=== PATIENT | female | born 1965 | race Caucasian/White ===

== ENCOUNTER → 2016-09-22 | Outpatient (CLI) | payer BC ==
[~2016-09-22] MED LIST: ASPI-435 PO; CEPH500C2 PO; CYAN10004 SL; GLC/500 PO; LEVO25TA5 PO; LEVO50TA6 PO; LISI-461 PO; LISI2.5T5 PO; METF750T PO; PARO10TA3 PO; SULF800T23 PO
[2016-09-22 10:00] LABS: BASO % 0.5 %; BASO ABS # 0.06 K/uL (0-0.2); COMPLETE YES; EOS % 2.3 %; HEMATOCRIT 42.6 % (37-47); IG% 0.5 %; LYMPH % 24.1 %; LYMPH ABS # 2.83 K/uL (1.2-3.4); MEAN CELL VOLUME 92.2 fL (80-100); MEAN CORPUSCULAR HEMOGLOBIN 31.6 pg (25-34); MEAN CORPUSCULAR HGB CONC 34.3 g/dl (32-36); MEAN PLATELET VOLUME 8.9 fL (7.4-10.4); MONO % 6.1 %; NEUT % 66.5 %; PLATELET COUNT 436 K/uL (130-400); RED BLOOD COUNT 4.62 M/uL (4.2-5.4); WHITE BLOOD COUNT 11.75 K/uL (4.8-10.8)
[2016-09-22 10:29] LABS: ALB/GLOB RATIO 0.9 (0.9-2); ALT/SGPT 28 U/L (12-78); AST/SGOT 14 U/L (15-37); BLOOD UREA NITROGEN 6 mg/dl (7-18); CALCIUM 8.8 mg/dl (8.5-10.1); CARBON DIOXIDE 28 mmol/L (21-32); CHLORIDE 101 mmol/L (98-107); CREATININE 0.65 mg/dl (0.60-1.20); GLUCOSE 177 mg/dl (70-99); POTASSIUM 4.2 mmol/L (3.5-5.1); SODIUM 136 mmol/L (136-145)
[2016-09-22 10:40] LABS: ALKALINE PHOSPHATASE 101 U/L (45-117); CHOLESTEROL 172 mg/dl (0-200); CHOLESTEROL/HDL RATIO 3.4; HDL CHOLESTEROL 50 mg/dl; LDL CHOLESTEROL CALCULATED 101 mg/dl; TRIGLYCERIDES 106 mg/dl (0-150); VERY LOW DENSITY LIPOPROT CALC 21 mg/dl
[2016-09-22 10:56] LABS: ESTIMATED AVERAGE GLUCOSE 169 mg/dl; HA1C FLAG Normal (Normal)
== END | disposition home or self-care (01) ==
LOC: C.LAB1850 09:16
PROVIDERS: ATTEND Physician Assistant
DX: Z00.00 Encounter for general adult medical examination without abnormal findings (principal); E11.9 Type 2 diabetes mellitus without complications; E03.9 Hypothyroidism, unspecified

== ENCOUNTER → 2016-10-06 | Outpatient (CLI) | payer BC | END | disposition home or self-care (01) | LOC: C.PAPS 11:10 | PROVIDERS: ATTEND Obstetrics & Gynecology | DX: Z01.419 Encounter for gynecological examination (general) (routine) without abnormal findings (principal) ==

== ENCOUNTER 2016-10-23 09:40 | Emergency (ER) | payer BC ==
[~2016-10-23] VITALS: Ht 152.4 cm; Wt 129.0 kg
[2016-10-23 09:42] VITALS: TEMP 36.8; Ht 152.4 cm; Wt 129.0 kg
[2016-10-23] MEDS ORDERED: XYLOCAINE 1%/SOD BICARB 20 ML VIAL INFIL ONE (10:01)
--- NOTE | 2016-10-23 10:06 | EMERGENCY ROOM VISIT NOTE ---
History First contact with patient: 09:45 Chief Complaint: WOUND INFECTION Stated Complaint: BLEEDING/OOZING SORE HX: DIABETES Nursing Triage Summary: Pt. states has sebaceous cyst on left pubic/groin area x3 days that began draining last night. Concerned because of history of diabetes. History of Present Illness The patient is a 51 year old female with diabetes who presents to the Emergency Room with complaints of infected sebaceous cyst. It has been progressively increasing in size for the last 3 days and opened up and draining last night. It has been oozing blood and pus. No previous MRSA infections but her has had MRSA. Previous sebaceous cyst on back previously infected. She has not fevers or chills. She is diabetic Review of Systems See HPI for pertinent positives & negatives. A total of 6 systems reviewed and were otherwise negative. Past Medical/Surgical History Medical Problems: (1) Diabetes mellitus (2) Hypothyroid Social History Smoking Status: Never Smoker Current/Historical Medications Scheduled Cephalexin Monohydrate (Keflex), 500 MG PO BID Levothyroxine Sodium (Levothyroxine Sodium), 25 MCG PO DAILY Lisinopril (Lisinopril), 10 MG PO DAILY Metformin Hcl (Glucophage Er), 750 MG PO BID Paroxetine HCl (Paroxetine), 10 MG PO DAILY Sulfa/Trimethoprim (Bactrim Ds 800MG/160MG), 1 TAB PO BID Allergies Coded Allergies: Miconazole (Verified Adverse Reaction, Unknown, burning, 10/23/16) Physical Exam Vital Signs Date Time Temp Pulse Resp B/P (MAP) Pulse Ox O2 Delivery O2 Flow Rate FiO2 10/23/16 11:06 85 16 108/70 95 10/23/16 10:55 85 16 108/70 95 Room Air 10/23/16 09:42 36.8 88 18 158/86 94 Room Air Physical Exam VITAL SIGNS: were reviewed as above GENERAL: no acute distress, morbidly obese SKIN: 2 cm diameter pus filled open cyst mixed with clotted blood on left lower part of abdomen above panniculus. Surrounding dark red skin. ABDOMEN: soft non tender around lesion above NEUROLOGICALLY: Awake alert and oriented. Medical Decision & Procedures Laboratory Results Test 10/23/16 10:46 Bedside Glucose 196 mg/dl (70-90) Medications Administered Medications (Trade) Dose Ordered Sig/Ana Route Start Time Stop Time Status Last Admin Dose Admin Lidocaine HCl (Buffered Lidocaine 1% Inj) 20 ml STK-MED ONCE INFIL 10/23/16 10:01 10/23/16 10:02 DC 10/23/16 10:17 20 ML Procedure Incision and drainage: Verbal consent was gained. Risks of local damage, bleeding, infection were discussed. Skin was prepped using Betadine. 8ml of 1% buffered lidocaine use to anesthetize surrounding skin. Using aseptic non touch technique a 2.5cm incision was made using a scalpel. Pus and blood extruded. Blunt dissection scissors used to evacuate infection. Area was thoroughly irrigated with saline. Packed with iodoform and dressed with gauze and tape. Patient tolerated procedure well and follow information in 48 hours explained verbally and in written instructions. ED Course 9:45am Complete history and physical performed 10:15am Discussed with Dr Patel and Incision and Drainage performed 10:50am Patient was discharged Medical Decision Triage Nursing notes reviewed. Additional history obtained from patient The patient's history was concerning for infected skin abscess. Differential diagnosis: Etiologies such as cellulitis, abscess, MRSA infection, DVT, necrotizing fasciitis, dermatitis, drug eruption, as well as others were entertained.. Physical examination: The physical examination was consistent with infected skin abscess Wound culture taken Incision and Drainage was performed (see above) On reassessment the patient felt better after incision and drainage This appears to be isolated infected skin abscess likely from sebaceous cyst with mild surrounding cellulitis. By the evaluation outlined above emergent etiologies such as necrotizing fasciitis, DVT, as well as others were deemed relatively unlikely. The patient informed about the findings as listed above. All questions were answered and she was pleased with the treatment. Return instructions were outlined and the patient was discharged in stable condition. Outpatient prescription management: Keflex 500mg BID 10 days Bactrim 800/160mg 1 tab BID 10 days Referral: The patient will be seen in the ER in 2 days for removal of packing and wound check. Impression Primary Impression: Infected sebaceous cyst Departure Information Dispostion Home / Self-Care Condition GOOD Prescriptions Cephalexin Monohydrate (KEFLEX) 500 Mg Cap 500 MG PO BID for 10 Days, #20 CAP Prov: Heraclio Woods MD 10/23/16 Sulfa/Trimethoprim (Bactrim Ds 800MG/160MG) Tab 1 TAB PO BID for 10 Days, #20 TAB Prov: Heraclio Woods MD 10/23/16 Referrals No Doctor, Assigned (PCP) Patient Instructions My [facility] Resident Tracking Resident Involvement: Resident Care Provided Care Provided: Adult ED
[2016-10-23] MEDS ORDERED: LEVO25TA5 PO (10:15)
[2016-10-23] MEDS ORDERED: METF750T PO (10:15)
[2016-10-23] MEDS ORDERED: PARO10TA3 PO (10:15)
[2016-10-23] MEDS ORDERED: LISI-461 PO (10:15)
[2016-10-23] MEDS ORDERED: SULF800T23 PO (10:43)
[2016-10-23] MEDS ORDERED: CEPH500C2 PO (10:43)
[2016-10-23 11:06] VITALS: BP 108/70; PULSE 85; O2SAT 95
--- NOTE | 2016-10-23 14:18 | EMERGENCY ROOM VISIT NOTE ---
ED Visit Note First contact with patient: 09:45 Resident Physician Supervision Note: I interviewed and examined the patient. Discussed with Dr. Woods and agree with findings and plan as documented in the note. Any exceptions or clarifications are listed here: [None] Documented By: Gordon Patel
== END 2016-10-23 11:05 | disposition home or self-care (01) ==
LOC: C.EDB 09:42
DX: L72.3 Sebaceous cyst (principal); E11.9 Type 2 diabetes mellitus without complications; E03.9 Hypothyroidism, unspecified; Z79.899 Other long term (current) drug therapy

== ENCOUNTER 2016-10-25 15:59 | Emergency (ER) | payer BC ==
[~2016-10-25 15:59] MED LIST changes: -ASPI-435 PO; -CYAN10004 SL; -GLC/500 PO; -LEVO50TA6 PO; -LISI2.5T5 PO
[2016-10-25 16:03] VITALS: BP 151/80; PULSE 84; TEMP 36.6; O2SAT 96
--- NOTE | 2016-10-25 16:22 | EMERGENCY ROOM VISIT NOTE ---
History Report prepared by Brooke: Yesi Bowers Under the Supervision of: Dr. Ryan Orr M.D. First contact with patient: 16:07 Chief Complaint: WOUND RECHECK Stated Complaint: RETURN FOR REPACKING WOUND Nursing Triage Summary: pt here for recheck of left groin abcess. area was drained monday am. now having increased drainage. pt already on abx History of Present Illness The patient is a 51 year old female who presents to the Emergency Room with complaints of a persistent sebaceous cyst to her left abdomen that she first noticed on Monday. She currently rates her discomfort as a 3/10 in severity. The patient reports that she started noticing the cyst on Monday and states that on Monday she was evaluated in the emergency department for her infection. She states that she had the abscess drained, packed and bandaged. The patient states that the bandage fell off and notes that the area has been oozing. She states that the packing is still in place. The patient states that she was placed on Sulfamethoxazole and Cephalexin. She states that she is a diabetic. The patient denies any fever or chills. Source of History: patient Onset: Monday Position: other (left groin) Symptom Intensity: 3/10 Quality: other (sebaceous cyst) Timing: other (persistent) Associated Symptoms: No fevers, No chills Review of Systems See HPI for pertinent positives & negatives. A total of 6 systems reviewed and were otherwise negative. Past Medical & Surgical Medical Problems: (1) Diabetes mellitus (2) Hypothyroid Family History Cancer Diabetes mellitus FH: heart disease Hypertension Social History Smoking Status: Never Smoker Smokeless Tobacco Use: No Alcohol Use: occasionally Marital Status: single Housing Status: lives with roommate Occupation Status: employed Current/Historical Medications Scheduled Cephalexin Monohydrate (Keflex), 500 MG PO BID Levothyroxine Sodium (Levothyroxine Sodium), 25 MCG PO DAILY Lisinopril (Lisinopril), 10 MG PO DAILY Metformin Hcl (Glucophage Er), 750 MG PO BID Paroxetine HCl (Paroxetine), 10 MG PO DAILY Sulfa/Trimethoprim (Bactrim Ds 800MG/160MG), 1 TAB PO BID Allergies Coded Allergies: Miconazole (Verified Adverse Reaction, Unknown, burning, 10/23/16) Physical Exam Vital Signs Date Time Temp Pulse Resp B/P (MAP) Pulse Ox O2 Delivery O2 Flow Rate FiO2 10/25/16 16:03 36.6 84 16 151/80 96 Physical Exam General: Standing by the stretcher in no distress. Neuro: Awake, alert, oriented x3. No focal motor deficits. Skin: Packing in place on the left lower abdominal wall, some subtle surrounding erythema, no warmth, no foul odor , no true cellulitis. No active drainage. Medical Decision & Procedures Procedure Packing Removal: Packing removed without complication. Wound appears to be healing well, dressing applied. ED Course 1608: The patient was evaluated in room C8. A complete history and physical exam was performed. Medical Decision Patient presents for packing removal. The packing was removed as noted above without complaints. She is on Bactrim and Keflex. I reviewed the patient's culture results from 2 days ago, the meds she is taking should take care of this infection. There is no active cellulitis, there is no concerning drainage. The patient is not febrile, she has not had chills, she feels well. She is being discharged to continue the antibiotics until all. She will wash and redress the wound at least twice a day. If worsening, she can return. Blood Pressure Screening: Patient was found to have an elevated blood pressure and was referred to their primary doctor for recheck and further treatment. Medication Reconciliation: I attest that I have personally reviewed the patient' s current medication list. Impression Primary Impression: Abscess packing removal Additional Impression: Abscess Scribe Attestation The scribe's documentation has been prepared under my direction and personally reviewed by me in its entirety. I confirm that the note above accurately reflects all work, treatment, procedures, and medical decision making performed by me. Departure Information Dispostion Home / Self-Care Referrals RV. Rainey MD (PCP) Forms HOME CARE DOCUMENTATION FORM, IMPORTANT VISIT INFORMATION Patient Instructions My [facility] Additional Instructions continue the two antibiotics clean the wound with soap and water 2x per day and redress 2x per day watch for infection---redness, fever, chills, worsening drainage Problem Qualifiers
[2016-10-25] MEDS ORDERED: SULF800T23 PO (16:32)
[2016-10-25] MEDS ORDERED: CEPH500C2 PO (16:32)
== END 2016-10-25 16:39 | disposition home or self-care (01) ==
LOC: C.EDB 16:01 → C.EDC 16:39
DX: Z48.01 Encounter for change or removal of surgical wound dressing (principal); E11.9 Type 2 diabetes mellitus without complications; E03.9 Hypothyroidism, unspecified; Z83.3 Family history of diabetes mellitus; Z82.49 Family history of ischemic heart disease and other diseases of the circulatory system; Z79.84 Long term (current) use of oral hypoglycemic drugs; Z79.899 Other long term (current) drug therapy

== ENCOUNTER → 2016-10-26 | Outpatient (CLI) | payer BC ==
[~2016-10-26] MED LIST changes: +ASPI-435 PO; +CYAN10004 SL; +GLC/500 PO; +LEVO50TA6 PO; +LISI2.5T5 PO
--- NOTE | 2016-10-27 14:43 | MAMMOGRAPHY REPORT ---
BILATERAL DIGITAL SCREENING MAMMOGRAM WITH CAD: 10/26/2016 CLINICAL HISTORY: Routine screening. Patient has no complaints. TECHNIQUE: Current study was also evaluated with a Computer Aided Detection (CAD) system. Bilateral CC and MLO views and a cleavage view were obtained. COMPARISON: Comparison is made to exams dated: 11/30/2015 mammogram, 11/24/2014 mammogram, 10/11/2013 m ammogram, 10/10/2012 mammogram, and 08/26/2011 mammogram. BREAST COMPOSITION: The tissue of both breasts is almost entirely fatty. FINDINGS: No suspicious masses, calcifications, or areas of architectural distortion are noted in ei ther breast. There has been no significant interval change compared to prior exams. Scattered bilater al benign-appearing calcifications are not significantly changed. IMPRESSION: ACR BI-RADS CATEGORY 2: BENIGN There is no mammographic evidence of malignancy. A 1 year screening mammogram is recommended. The pa tient will receive written notification of the results. Approximately 10% of breast cancers are not detected with mammography. A negative mammographic report should not delay biopsy if a clinically suggestive mass is present. Nelda Andrade M.D. /:10/26/2016 16:57:42 Associate Professor Of Library Science: Laura SUERO)(M), [facility] letter sent: Normal 1/2 BI-RADS Code: ACR BI-RADS Category 2: Benign
== END | disposition home or self-care (01) ==
LOC: C.MAMM 16:30
PROVIDERS: ATTEND Internal Medicine
DX: Z12.31 Encounter for screening mammogram for malignant neoplasm of breast (principal)

== ENCOUNTER → 2017-03-23 | Outpatient (CLI) | payer BC ==
[~2017-03-23] MED LIST changes: -ASPI-435 PO; -CYAN10004 SL; -GLC/500 PO; -LEVO50TA6 PO; -LISI2.5T5 PO
--- NOTE | 2017-03-23 13:59 | DIAGNOSTIC IMAGING REPORT ---
CHEST 2 VIEWS ROUTINE CLINICAL HISTORY: COUGH dyspnea COMPARISON STUDY: No previous studies for comparison. FINDINGS: The bones soft tissues and hemidiaphragms are normal. The cardiomediastinal silhouette is normal. The lungs are clear. The pulmonary vasculature is normal. IMPRESSION: Negative chest. The above report was generated using voice recognition software. It may contain grammatical, syntax or spelling errors. Electronically signed by: Gene Baig M.D. 03/23/2017 1:58 PM Dictated Date/Time: 03/23/2017 1:58 PM
== END | disposition home or self-care (01) ==
LOC: C.RAD1850 12:47
PROVIDERS: ATTEND Physician Assistant
DX: R05 Cough (principal)

== ENCOUNTER 2017-04-07 11:57 | Observation (INO) | payer BC ==
[~2017-04-07] VITALS: Ht 152.4 cm; Wt 112.7 kg
[2017-04-07] MEDS ORDERED: LIDOCAINE/EPINEPH/TETRACAINE 1 EA SYR EXT STA (13:21)
--- NOTE | 2017-04-07 13:38 | DIAGNOSTIC IMAGING REPORT ---
CHEST ONE VIEW PORTABLE CLINICAL HISTORY: syncope dyspnea COMPARISON STUDY: 03/23/2017 FINDINGS: The bones soft tissues and hemidiaphragms are normal. The cardiomediastinal silhouette is normal. The lungs are clear. The pulmonary vasculature is normal. IMPRESSION: Negative chest. The above report was generated using voice recognition software. It may contain grammatical, syntax or spelling errors. Electronically signed by: Gnee Baig M.D. 04/07/2017 1:36 PM Dictated Date/Time: 04/07/2017 1:36 PM
--- NOTE | 2017-04-07 13:43 | DIAGNOSTIC IMAGING REPORT ---
LEFT ELBOW 3 VIEWS CLINICAL HISTORY: Fall with left elbow pain. FINDINGS: 3 views of the left elbow are obtained. No prior studies are available for comparison at the time of dictation. The skeletal structures are well mineralized for age. No fracture is seen. Mild spurring is seen along the radial head. Enthesophytes are present at the medial humeral epicondyle and the triceps insertion. No joint effusion is seen. The overlying soft tissues are within normal limits. IMPRESSION: Mild degenerative change as above. There is no radiographic evidence of left elbow fracture. Electronically signed by: Ryan Underwood M.D. 04/07/2017 1:42 PM Dictated Date/Time: 04/07/2017 1:41 PM
[2017-04-07 13:48] LABS: BASO % 0.4 %; BASO ABS # 0.06 K/uL (0-0.2); COMPLETE YES; EOS % 1.6 %; HEMATOCRIT 44.2 % (37-47); IG% 0.3 %; LYMPH % 24.4 %; LYMPH ABS # 3.27 K/uL (1.2-3.4); MEAN CELL VOLUME 92.9 fL (80-100); MEAN CORPUSCULAR HEMOGLOBIN 32.4 pg (25-34); MEAN CORPUSCULAR HGB CONC 34.8 g/dl (32-36); MEAN PLATELET VOLUME 9.2 fL (7.4-10.4); MONO % 5.7 %; NEUT % 67.6 %; PLATELET COUNT 425 K/uL (130-400); RED BLOOD COUNT 4.76 M/uL (4.2-5.4)
[2017-04-07] MEDS ORDERED: GLC/500 PO (14:01)
[2017-04-07 14:07] LABS: ALB/GLOB RATIO 0.9 (0.9-2); BUN/CREATININE RATIO 10.3 (10-20); CALCIUM 9.1 mg/dl (8.5-10.1); CKMB/CK RATIO 1.9 (0-3.0); CREATININE 0.71 mg/dl (0.60-1.20); THYROID STIMULATING HORMONE 1.9 uIu/ml (0.300-4.500)
[2017-04-07 14:11] LABS: URINE APPEARANCE CLEAR (CLEAR); URINE BILIRUBIN NEG (NEG); URINE COLOR YELLOW; URINE EPITHELIAL CELL AUTO 0-5 /lpf (0-5); URINE NITRITE NEG (NEG); URINE PH 5.5 (4.5-7.5); URINE SPECIFIC GRAVITY 1.011 (1.000-1.030); UROBILINOGEN NEG (NEG); ZZUR CULT IF INDIC CLEAN CATCH NO
[2017-04-07 14:12] LABS: MANUAL MICROSCOPIC REQUIRED? NO; REVIEW REQ? NO
[2017-04-07] MEDS ORDERED: XYLOCAINE 1%/SOD BICARB 20 ML VIAL INFIL ONE (15:00)
[2017-04-07] MEDS ORDERED: DEXTROSE 50% 50 ML SYR IV PRN (15:45)
[2017-04-07] MEDS ORDERED: ALUMINUM/MAGNESIUM/SIMETH (MAALOX MAX) 30 ML UDC PO PRN (15:45)
[2017-04-07] MEDS ORDERED: ACETAMINOPHEN 325 MG TAB PO PRN (15:45)
[2017-04-07] MEDS ORDERED: ONDANSETRON INJ 2 MG/ML 2 ML VIAL IV PRN (15:45)
[2017-04-07] MEDS ORDERED: MAGNESIUM HYDROXIDE SUSP 30 ML UDC PO PRN (15:45)
[2017-04-07] MEDS ORDERED: GLUCOSE 10 TABS/TUBE PO PRN (15:45)
[2017-04-07] MEDS ORDERED: POLYETHYLENE (MIRALAX) 17 GM PACK PO PRN (15:45)
[2017-04-07] MEDS ORDERED: GLUCAGON FOR INJ 1 MG VIAL SQ PRN (15:45)
[2017-04-07] MEDS ORDERED: GLUCOSE 40% GEL 15 GM TUBE PO PRN (15:45)
--- NOTE | 2017-04-07 15:50 | EMERGENCY ROOM VISIT NOTE ---
ED Visit Note EMERGENCY DEPARTMENT PROCEDURE NOTE: I was asked by Dr. Abarca to repair the 2 cm left elbow wound of this 51- year-old white female patient. Please refer to their dictation for the complete history, physical exam, and ED course. EMERGENCY DEPARTMENT COURSE: The wound had been anesthetized with LET gel. Wound was prepped with Betadine and draped with sterile towels. Laceration was irrigated copiously using normal saline solution and direct pressure irrigation. Wound was explored thoroughly. There was no evidence for foreign body. No active bleeding. The wound was repaired using 3, 4-0 nylon sutures. Bacitracin and a light dressing were applied. Patient tolerated the procedure well.
[2017-04-07] MEDS ORDERED: LISI2.5T5 PO (15:55)
[2017-04-07] MEDS ORDERED: ASPI-435 PO (15:55)
[2017-04-07] MEDS ORDERED: CYAN10004 SL (15:55)
[2017-04-07] MEDS ORDERED: LEVO50TA6 PO (15:55)
--- NOTE | 2017-04-07 16:10 | History and Physical ---
History & Physical Date & Time of Service: Apr 07, 2017 at 15:48 Chief Complaint: Fainted Primary Care Physician: RV. Rainey MD History of Present Illness Source: patient, clinic records, hospital records This is a 51 y/o female with a history of DM II, hypothyroidism, and anxiety who presented to the ED on 04/07 with syncope. The patient states that prior to her syncope episode she had been seated for a while and then stood up to walk to the bathroom. She felt lightheaded upon standing, followed by a tingly feeling all over her body before she lost consciousness and fell. She does not think she hit her head, but she did sustain a laceration to her left elbow and had landed on her left side. She denies any pain elsewhere, and her left elbow only hurts when touched. She has never had a syncope episode before, but she does often have lightheadedness upon standing that usually goes away quickly. The denies any visual changes, chest pain, palpitations, shortness of breath, or nausea prior to the syncope. Following the fall, she did briefly develop a headache that resolved on its own. She also had some tingling in the left leg but this has also resolved. The patient denies fevers, chills, sweats, chest pain, palpitations, claudication, cough, wheezing, shortness of breath, nausea, vomiting, abdominal pain, dysuria, hematuria, urinary retention, paralysis, weakness. Past Medical/Surgical History Medical Problems: (1) Diabetes mellitus Status: Chronic (2) Hypothyroid Status: Chronic Anxiety Family History Asthma Cancer (ovarian, breast, leukemia) Diabetes mellitus FH: heart disease Hypertension Myocardial infarction Stroke Social History Smoking Status: Never Smoker Smokeless Tobacco Use: No Alcohol Use: none Marital Status: single Housing status: lives with roommate Occupational Status: employed Allergies Coded Allergies: Miconazole (Verified Adverse Reaction, Unknown, burning, 04/07/17) Home Medications Scheduled Aspirin (Aspirin 81), 81 MG PO DAILY Cyanocobalamin (Vitamin B-12 1000 Mcg), 1 TAB SL DAILY Levothyroxine Sodium (Levothyroxine Sodium), 1 TAB PO DAILY Lisinopril (Lisinopril), 1 TAB PO DAILY Metformin Hcl (Glucophage), 1,000 MG PO BID Paroxetine HCl (Paroxetine), 10 MG PO DAILY Review of Systems Constitutional: No fever, No chills, No sweats Eyes: No worsening of vision, No eye pain, No diplopia ENT: No hearing loss, No nasal symptoms, No trouble swallowing Respiratory: No cough, No wheezing, No shortness of breath Cardiovascular: No chest pain, No claudication, No palpitations Abdomen: No pain, No nausea, No vomiting Musculoskeletal: +Left elbow pain and laceration. No muscle pain, No swelling Genitourinary - Female: No dysuria, No urinary retention, No hematuria Neurologic: +Mild diffuse tingling prior to syncope. Transient tingling LLE after falling and landing on left side. Pt has chronic neuropathy of feet. No paralysis, No weakness Integumentary: No rash, No itch, No color change Physical Exam Vital Signs Date Time Temp Pulse Resp B/P (MAP) Pulse Ox O2 Delivery O2 Flow Rate FiO2 04/07/17 14:49 82 20 158/83 97 Room Air 04/07/17 13:01 74 04/07/17 12:59 80 20 134/75 75 140/81 98 142/97 04/07/17 12:22 36.6 83 17 125/60 96 Room Air General appearance: +Morbidly obese. Well-developed, well-nourished, no apparent distress Head: Normocephalic, atraumatic Eyes: Normal inspection, PERRL, EOMI ENT: Normal ENT inspection, hearing grossly normal, pharynx normal Neck: Supple, no JVD, trachea midline Respiratory/Chest: Lungs clear to auscultation, normal breath sounds, no respiratory distress Cardiovascular: Regular rate & rhythm, no gallop, no murmur Abdomen/GI: +Mild epigastric tenderness. Normal bowel sounds, non-tender, soft Extremities/Musculoskeletal: +Left elbow small 1 inch laceration, TTP. No calf tenderness, no pedal edema Neurological/Psych: Alert, normal mood/affect, oriented x 3 Skin: Normal color, warm/dry, no rash Diagnostics Laboratory Results Results Past 24 Hours Test 04/07/17 12:51 04/07/17 13:15 04/07/17 13:45 04/07/17 13:49 Range/Units Bedside Glucose 195 70-90 mg/dl White Blood Count 13.40 4.8-10.8 K/uL Red Blood Count 4.76 4.2-5.4 M/uL Hemoglobin 15.4 12.0-16.0 g/dL Hematocrit 44.2 37-47 % Mean Corpuscular Volume 92.9 80-100 fL Mean Corpuscular Hemoglobin 32.4 25-34 pg Mean Corpuscular Hemoglobin Concent 34.8 32-36 g/dl Platelet Count 425 130-400 K/uL Mean Platelet Volume 9.2 7.4-10.4 fL Neutrophils (%) (Auto) 67.6 % Lymphocytes (%) (Auto) 24.4 % Monocytes (%) (Auto) 5.7 % Eosinophils (%) (Auto) 1.6 % Basophils (%) (Auto) 0.4 % Neutrophils # (Auto) 9.06 1.4-6.5 K/uL Lymphocytes # (Auto) 3.27 1.2-3.4 K/uL Monocytes # (Auto) 0.76 0.11-0.59 K/uL Eosinophils # (Auto) 0.21 0-0.5 K/uL Basophils # (Auto) 0.06 0-0.2 K/uL RDW Standard Deviation 46.0 36.4-46.3 fL RDW Coefficient of Variation 13.6 11.5-14.5 % Immature Granulocyte % (Auto) 0.3 % Immature Granulocyte # (Auto) 0.04 0.00-0.02 K/uL Sodium Level 129 136-145 mmol/L Potassium Level 4.0 3.5-5.1 mmol/L Chloride Level 96 98-107 mmol/L Carbon Dioxide Level 24 21-32 mmol/L Anion Gap 9.0 3-11 mmol/L Blood Urea Nitrogen 7 7-18 mg/dl Creatinine 0.71 0.60-1.20 mg/dl Est Creatinine Clear Calc Drug Dose 118.5 ml/min Estimated GFR () 114.3 Estimated GFR (Non- 98.6 BUN/Creatinine Ratio 10.3 10-20 Random Glucose 184 70-99 mg/dl Calcium Level 9.1 8.5-10.1 mg/dl Total Bilirubin 0.5 0.2-1 mg/dl Aspartate Amino Transf (AST/SGOT) 27 15-37 U/L Alanine Aminotransferase (ALT/SGPT) 43 12-78 U/L Alkaline Phosphatase 113 45-117 U/L Total Creatine Kinase 78 26-192 U/L Creatine Kinase MB 1.5 0.5-3.6 ng/ml Creatine Kinase MB Ratio 1.9 0-3.0 Total Protein 8.3 6.4-8.2 gm/dl Albumin 3.9 3.4-5.0 gm/dl Globulin 4.4 2.5-4.0 gm/dl Albumin/Globulin Ratio 0.9 0.9-2 Thyroid Stimulating Hormone (TSH) 1.900 0.300-4.500 uIu/ml Chemistry Specimen Hemolysis Bedside Troponin I < 0.030 0-0.045 ng/ml Urine Color YELLOW Urine Appearance CLEAR CLEAR Urine pH 5.5 4.5-7.5 Urine Specific [place] 1.011 1.000-1.030 Urine Protein NEG NEG Urine Glucose (UA) NEG NEG Urine Ketones NEG NEG Urine Occult Blood NEG NEG Urine Nitrite NEG NEG Urine Bilirubin NEG NEG Urine Urobilinogen NEG NEG Urine Leukocyte Esterase NEG NEG Urine WBC (Auto) 1-5 0-5 /hpf Urine RBC (Auto) 0-4 0-4 /hpf Urine Hyaline Casts (Auto) 0 0-5 /lpf Urine Epithelial Cells (Auto) 0-5 0-5 /lpf Urine Bacteria (Auto) NEG NEG Test 04/07/17 15:36 Range/Units Diagnostic Radiology Reviewed the following studies and agree with interpretation as follows: CHEST ONE VIEW PORTABLE CLINICAL HISTORY: syncope dyspnea COMPARISON STUDY: 03/23/2017 FINDINGS: The bones soft tissues and hemidiaphragms are normal. The cardiomediastinal silhouette is normal. The lungs are clear. The pulmonary vasculature is normal. IMPRESSION: Negative chest. LEFT ELBOW 3 VIEWS CLINICAL HISTORY: Fall with left elbow pain. FINDINGS: 3 views of the left elbow are obtained. No prior studies are available for comparison at the time of dictation. The skeletal structures are well mineralized for age. No fracture is seen. Mild spurring is seen along the radial head. Enthesophytes are present at the medial humeral epicondyle and the triceps insertion. No joint effusion is seen. The overlying soft tissues are within normal limits. IMPRESSION: Mild degenerative change as above. There is no radiographic evidence of left elbow fracture. EKG Reviewed EKG and agree with interpretation as follows: 72 bpm, NSR, left anterior fascicular block, lateral T wave inversions (new from October 2016) Impression Assessment and Plan 51 y/o female with a history of DM II, hypothyroidism, and anxiety who presented to the ED on 04/07 with syncope. Pt AVSS on arrival. Orthostatic BP negative. CXR and left elbow x-ray no acute disease. Troponin and TSH negative /WNL. BSG 184. Left elbow laceration sutured in ED. Syncope--pt has history of abnormal perfusion study in 2012 per outpt records. Was seen by cardiology but no further cardiac workup was needed at that time, and abnormal study was not thought to be definitive CAD -Admit to telemetry for observation -Brain MRI -Carotid Doppler ultrasound -Echo -Trend cardiac enzymes q8h x 3, first set negative -EKG q am and prn chest pain -Orthostatic BP q shift -Continue ASA DM II--last HgbA1c checked 09/22/16 was 7.5 -Hold metformin -Insulin sliding scale -Check BSGs q ac and qhs -Recheck HgbA1c -Continue lisinopril 2.5 mg PO qd Hypothyroidism--stable -TSH 1.9 -Continue Synthroid 50 mcg PO qd Anxiety -Continue paroxetine 10 mg PO qd DVT prophylaxis -Enoxaparin 40 mg SC q24h -BIPIN Nelson Code Status -Level I, FULL RESUSCITATION STATUS Level of Care Telemetry Resuscitation Status FULL RESUSCITATION VTE Prophylaxis VTE Risk Assessment Done? Y/N: Yes Risk Level: Moderate Given or contraindicated: Enoxaparin (Lovenox)SQ, T.E.D. Stockings, SCD's
[2017-04-07] MEDS ORDERED: IV FLUIDS COMPLETED PRN (16:15)
--- NOTE | 2017-04-07 17:00 | DIAGNOSTIC IMAGING REPORT ---
ULTRASOUND OF THE CAROTID ARTERIES CLINICAL HISTORY: syncope COMPARISON STUDY: None. TECHNIQUE: Real-time, grayscale, and color Doppler sonography of the carotid arteries was performed. Imaging reviewed in the transverse and longitudinal planes. NASCET criteria was utilized for stenosis calcification. FINDINGS: There is minimal atherosclerotic plaque present . The peak systolic velocity within the right internal carotid artery is 80 cm/sec. The systolic velocity ratio of right internal to common carotid artery is 0.8. The peak systolic velocity within the left internal carotid artery is 106 cm/sec. The systolic velocity ratio left internal to common carotid artery is 0.9. Antegrade flow is seen in the vertebral arteries. The external carotid arteries are patent. Blood pressure in the right arm measured 148 mm/Hg. Blood pressure in the left arm measured 132 mm/Hg. There are mildly prominent bilateral cervical lymph nodes. IMPRESSION: No evidence of hemodynamically significant carotid stenosis. Electronically signed by: Rodrigo Wilson M.D. 04/07/2017 4:59 PM Dictated Date/Time: 04/07/2017 4:57 PM
[2017-04-07 18:00] VITALS: BP 109/70; PULSE 91; TEMP 36.8; O2SAT 99; BMI 56.8
--- NOTE | 2017-04-07 19:22 | DIAGNOSTIC IMAGING REPORT ---
Brain MRI WITH AND WITHOUT CONTRAST HISTORY: syncope TECHNIQUE: Multiplanar multisequence MRI of the brain was performed both before and after the intravenous administration of contrast. COMPARISON STUDY: None. FINDINGS: There are no areas of restricted diffusion to suggest acute infarction. The midline structures are intact. The paranasal sinuses are clear. The mastoid air cells are clear. The ventricles and sulci are within normal limits for age. There is no mass, hematoma, midline shift. The major vascular flow-voids at the skull base are well maintained. Postcontrast sequences show no areas of abnormal enhancement. There are few punctate foci of T2 hyperintensity within the white matter. Prominence of the fluid within the optic sheaths bilaterally. IMPRESSION: 1. No acute intracranial abnormality. 2. A few punctate T2 hyperintense foci within the white matter of the supratentorial brain. This is nonspecific but can be seen the setting of minimal microvascular ischemic change or migraines. 3. Prominence of the fluid within the optic sheath bilaterally. Ophthalmologic examination is recommended to exclude the possibility of papilledema. Electronically signed by: Paramjit Diaz M.D. 04/07/2017 7:21 PM Dictated Date/Time: 04/07/2017 7:08 PM
--- NOTE | 2017-04-07 20:15 | EMERGENCY ROOM VISIT NOTE ---
History Report prepared by Brooke: Nikki Hernandez Under the Supervision of: Dr. Bharathi Abarca M.D. First contact with patient: 13:10 Chief Complaint: SYNCOPE (NEAR SYNCOPE) Stated Complaint: FAINTED Nursing Triage Summary: patient diabetic and ate then was walking to the bathroom and passed out. waking up in bathroom on the floor. left elbow bleeding. History of Present Illness The patient is a 51 year old female who presents to the Emergency Room with complaints of an episode of syncope occurring just prior to arrival. The patient states she was walking when the episode occurred. The patient reports she was seated for a while and when she stood up and started walking she started to have "head evans". She reports having feelings of "head evans" in the past. The patient notes she has a very sedentary job and when she stands up she sometimes gets feelings of "head evans". The patient reports feeling well for the past week. She notes being sick a couple weeks ago which she believes she has "gotten over". She notes some neck soreness but denies hitting her head. She notes bleeding from her left elbow. The patient has a history of diabetes and hypothyroidism. Pt denies headache, fevers, chills, diaphoresis, visual changes, chest pain, breathing difficulties, nausea, vomiting, abdominal pain, back pain, melena, hematochezia, urinary symptoms, numbness, weakness, lymphadenopathy, rash, or other complaints. The patient's last tetanus shot was 3 years ago. Source of History: patient Onset: just prior to arrival Position: other (global) Quality: other (syncope) Timing: other (episode) Modifying Factors (Relieving): other (none) Associated Symptoms: + neck pain Review of Systems See HPI for pertinent positives and negatives. A total of ten systems were reviewed and were otherwise negative. Past Medical & Surgical Medical Problems: (1) Diabetes mellitus (2) Hypothyroid (3) Syncope Family History Cancer Diabetes mellitus FH: heart disease Hypertension Social History Smoking Status: Never Smoker Alcohol Use: occasionally Marital Status: single Housing Status: lives with roommate Occupation Status: employed Current/Historical Medications Scheduled Aspirin (Aspirin 81), 81 MG PO DAILY Cyanocobalamin (Vitamin B-12 1000 Mcg), 1 TAB SL DAILY Levothyroxine Sodium (Levothyroxine Sodium), 1 TAB PO DAILY Lisinopril (Lisinopril), 1 TAB PO DAILY Metformin Hcl (Glucophage), 1,000 MG PO BID Paroxetine HCl (Paroxetine), 10 MG PO DAILY Allergies Coded Allergies: Miconazole (Verified Adverse Reaction, Unknown, burning, 04/07/17) Physical Exam Vital Signs Date Time Temp Pulse Resp B/P (MAP) Pulse Ox O2 Delivery O2 Flow Rate FiO2 04/07/17 15:30 88 20 148/83 99 Room Air 04/07/17 14:49 82 20 158/83 97 Room Air 04/07/17 13:01 74 04/07/17 12:59 80 20 134/75 75 140/81 98 142/97 04/07/17 12:22 36.6 83 17 125/60 96 Room Air Physical Exam GENERAL: Awake, alert, well-appearing, in no distress HENT: Normocephalic, atraumatic. Oropharynx unremarkable. EYES: Normal conjunctiva. Sclera non-icteric. NECK: Supple. No nuchal rigidity. FROM. No JVD. RESPIRATORY: Clear to auscultation. CARDIAC: Regular rate, normal rhythm. Extremities warm and well perfused. Pulses equal. ABDOMEN: Soft, non-distended. No tenderness to palpation. No rebound or guarding. No masses. RECTAL: Deferred. MUSCULOSKELETAL: Chest examination reveals no tenderness. The back is symmetrical on inspection without obvious abnormality. There is no CVA tenderness to palpation. No joint edema. LOWER EXTREMITIES: Calves are equal size bilaterally and non-tender. No edema. No discoloration. NEURO: Normal sensorium. No sensory or motor deficits noted. SKIN: No rash or jaundice noted. 2 cm laceration over left elbow. Medical Decision & Procedures ER Provider Diagnostic Interpretation: Radiology results as stated below per my review and radiologist interpretation: LEFT ELBOW 3 VIEWS FINDINGS: 3 views of the left elbow are obtained. No prior studies are available for comparison at the time of dictation. The skeletal structures are well mineralized for age. No fracture is seen. Mild spurring is seen along the radial head. Enthesophytes are present at the medial humeral epicondyle and the triceps insertion. No joint effusion is seen. The overlying soft tissues are within normal limits. IMPRESSION: Mild degenerative change as above. There is no radiographic evidence of left elbow fracture. Electronically signed by: Ryan Underwood M.D. CHEST ONE VIEW PORTABLE FINDINGS: The bones soft tissues and hemidiaphragms are normal. The cardiomediastinal silhouette is normal. The lungs are clear. The pulmonary vasculature is normal. IMPRESSION: Negative chest. The above report was generated using voice recognition software. It may contain grammatical, syntax or spelling errors. Electronically signed by: Gene Baig M.D. Laboratory Results 04/07/17 13:15 Red Blood Count 4.76, Mean Corpuscular Volume 92.9, Mean Corpuscular Hemoglobin 32.4, Mean Corpuscular Hemoglobin Concent 34.8, Mean Platelet Volume 9.2, Neutrophils (%) (Auto) 67.6, Lymphocytes (%) (Auto) 24.4, Monocytes (%) (Auto) 5.7, Eosinophils (%) (Auto) 1.6, Basophils (%) (Auto) 0.4, Neutrophils # (Auto) 9.06, Lymphocytes # (Auto) 3.27, Monocytes # (Auto) 0.76, Eosinophils # (Auto) 0.21, Basophils # (Auto) 0.06 04/07/17 13:15 Test 04/07/17 13:15 04/07/17 13:45 04/07/17 13:49 White Blood Count 13.40 K/uL (4.8-10.8) Red Blood Count 4.76 M/uL (4.2-5.4) Hemoglobin 15.4 g/dL (12.0-16.0) Hematocrit 44.2 % (37-47) Mean Corpuscular Volume 92.9 fL (80-100) Mean Corpuscular Hemoglobin 32.4 pg (25-34) Mean Corpuscular Hemoglobin Concent 34.8 g/dl (32-36) Platelet Count 425 K/uL (130-400) Mean Platelet Volume 9.2 fL (7.4-10.4) Neutrophils (%) (Auto) 67.6 % Lymphocytes (%) (Auto) 24.4 % Monocytes (%) (Auto) 5.7 % Eosinophils (%) (Auto) 1.6 % Basophils (%) (Auto) 0.4 % Neutrophils # (Auto) 9.06 K/uL (1.4-6.5) Lymphocytes # (Auto) 3.27 K/uL (1.2-3.4) Monocytes # (Auto) 0.76 K/uL (0.11-0.59) Eosinophils # (Auto) 0.21 K/uL (0-0.5) Basophils # (Auto) 0.06 K/uL (0-0.2) RDW Standard Deviation 46.0 fL (36.4-46.3) RDW Coefficient of Variation 13.6 % (11.5-14.5) Immature Granulocyte % (Auto) 0.3 % Immature Granulocyte # (Auto) 0.04 K/uL (0.00-0.02) Anion Gap 9.0 mmol/L (3-11) Est Creatinine Clear Calc Drug Dose 118.5 ml/min Estimated GFR () 114.3 Estimated GFR (Non- 98.6 BUN/Creatinine Ratio 10.3 (10-20) Calcium Level 9.1 mg/dl (8.5-10.1) Total Bilirubin 0.5 mg/dl (0.2-1) Aspartate Amino Transf (AST/SGOT) 27 U/L (15-37) Alanine Aminotransferase (ALT/SGPT) 43 U/L (12-78) Alkaline Phosphatase 113 U/L (45-117) Total Creatine Kinase 78 U/L (26-192) Creatine Kinase MB 1.5 ng/ml (0.5-3.6) Creatine Kinase MB Ratio 1.9 (0-3.0) Total Protein 8.3 gm/dl (6.4-8.2) Albumin 3.9 gm/dl (3.4-5.0) Globulin 4.4 gm/dl (2.5-4.0) Albumin/Globulin Ratio 0.9 (0.9-2) Thyroid Stimulating Hormone (TSH) 1.900 uIu/ml (0.300-4.500) Chemistry Specimen Hemolysis Bedside Troponin I < 0.030 ng/ml (0-0.045) Urine Color YELLOW Urine Appearance CLEAR (CLEAR) Urine pH 5.5 (4.5-7.5) Urine Specific [place] 1.011 (1.000-1.030) Urine Protein NEG (NEG) Urine Glucose (UA) NEG (NEG) Urine Ketones NEG (NEG) Urine Occult Blood NEG (NEG) Urine Nitrite NEG (NEG) Urine Bilirubin NEG (NEG) Urine Urobilinogen NEG (NEG) Urine Leukocyte Esterase NEG (NEG) Urine WBC (Auto) 1-5 /hpf (0-5) Urine RBC (Auto) 0-4 /hpf (0-4) Urine Hyaline Casts (Auto) 0 /lpf (0-5) Urine Epithelial Cells (Auto) 0-5 /lpf (0-5) Urine Bacteria (Auto) NEG (NEG) Laboratory results reviewed by me Medications Administered Medications (Trade) Dose Ordered Sig/Ana Route Start Time Stop Time Status Last Admin Dose Admin Tetracaine/ Epinephrine/ Lidocaine (L.e.t. Gel 4%/ 1:100/0.5%) 1 ea UD STAT EXT 04/07/17 13:21 04/07/17 13:23 DC 04/07/17 14:47 1 EA ECG Indication: syncope Rate (beats per minute): 72 Findings: LAFB, T-wave inversion (Anterior and laterally), no ectopy Comparison ECG Date: 10/13/2016 from Human Resources Consultant Change: T wave changes are new ED Course 1313: The patient was evaluated in room C1B. A complete history and physical exam was performed. 1321: Ordered Tetracaine/Epinephrine/Lidocaine 1 ea. EXT. 1459: Discussed the patient's case with Dr. Vang. The patient will be evaluated for further treatment and disposition. 1500: Ordered Lidocaine HCl 20 ml INFIL. 1503: On reevaluation, the patient is feeling better. I updated her on her test results. Medical Decision Triage Nursing notes reviewed. The patient's presentation and history were concerning for syncope. Etiologies such as vasovagal event, infection, hypoglycemia, electrolyte abnormalities, cardiac sources, intracerebral event, toxicologic, neurologic, as well as others were entertained. The patient was evaluated. Clinically she was doing well but did have a slight laceration of the left elbow. X-ray imaging did not reveal any abnormalities. This was treated and closed byJesusita Rain PA-C. Please see her note. The patient had blood work obtained which showed a slight leukocytosis. The patient had an unremarkable urinalysis. Chem panel and cardiac markers negative. Patient was found to have T-wave inversions which are new on ECG. Given the acute electric cart a gram changes and syncope he was felt that further management in the hospital was appropriate. Consultation was made with internal medicine. The patient was educated and she was in agreement. Blood Pressure Screening Patient's blood pressure: Elevated blood pressure Blood pressure disposition: Referred to PCP (evaluated by hospitalist) Consults Time Called: [phone] Consulting Physician: Dr. Vang Returned Call: [phone] Discussed the patient's case. The patient will be evaluated for further treatment and disposition. Impression Primary Impression: Syncope Additional Impression: Acute electrocardiogram changes Scribe Attestation The scribe's documentation has been prepared under my direction and personally reviewed by me in its entirety. I confirm that the note above accurately reflects all work, treatment, procedures, and medical decision making performed by me. Departure Information Dispostion Being Evaluated By Hospitalist Referrals RV. Rainey MD (PCP) Patient Instructions My [facility] Problem Qualifiers
[2017-04-07 20:28] VITALS: BP_SYST 103; BP_SYST 105; BP_SYST 130; BP_DIAS 66; BP_DIAS 74; PULSE 88; TEMP 36.5; O2SAT 94
[2017-04-07] MEDS: INSULIN ASPART 100 UNITS/ML 3 ML PEN SC SCH (21:00)
[2017-04-07 21:31] LABS: PROTHROMBIN TIME (PATIENT) 10.3 SECONDS (9.0-12.0)
[2017-04-08] VITALS (8 sets, daily range): BP systolic 108–159; BP diastolic 60–85; PULSE 61–92; TEMP 36.6–37.1; O2SAT 92–95; Ht 152.4 cm; Wt 112.7 kg
[2017-04-08 05:53] LABS: HEMATOCRIT 39.7 % (37-47); MEAN CELL VOLUME 92.8 fL (80-100); MEAN CORPUSCULAR HEMOGLOBIN 32.5 pg (25-34); PLATELET COUNT 395 K/uL (130-400); RED BLOOD COUNT 4.28 M/uL (4.2-5.4); WHITE BLOOD COUNT 12.57 K/uL (4.8-10.8)
[2017-04-08] MEDS ORDERED: LEVOTHYROXINE 50 MCG TAB PO SCH (06:00)
[2017-04-08 06:30] LABS: BUN/CREATININE RATIO 11.9 (10-20); CALCIUM 8.5 mg/dl (8.5-10.1); CKMB/CK RATIO 2.1 (0-3.0); CREATININE 0.69 mg/dl (0.60-1.20); POTASSIUM 3.8 mmol/L (3.5-5.1)
[2017-04-08] MEDS: INSULIN ASPART 100 UNITS/ML 3 ML PEN SC SCH ×3 (07:00→16:15)
[2017-04-08 07:22] LABS: ESTIMATED AVERAGE GLUCOSE 180 mg/dl; HA1C FLAG Normal (Normal)
[2017-04-08] MEDS ORDERED: PAROXETINE 20 MG TAB PO SCH (09:00)
[2017-04-08] MEDS ORDERED: ASPIRIN 81 MG ECTAB PO SCH (09:00)
[2017-04-08] MEDS ORDERED: LISINOPRIL 2.5 MG TAB PO SCH (09:00)
[2017-04-08] MEDS ORDERED: ENOXAPARIN 40 MG/0.4 ML SYR SC SCH (09:00)
[2017-04-08] MEDS ORDERED: PERFLUTREN LIPID MICROSPHERE (DEFINITY) IV ONE (10:24)
--- NOTE | 2017-04-08 11:31 | Progress Note ---
Subjective Date of Service: Apr 08, 2017. Subjective pt has had no further symptoms, she states she did remember feeling very tired the day her spell occured, she has had none since, she has not ambulated in unit yet Problem List Medical Problems: (1) Acute electrocardiogram changes Status: Acute (2) Infected sebaceous cyst Status: Acute Review of Systems Constitutional: No fever, No chills, No weakness, No fatigue Respiratory: No cough, No sputum, No shortness of breath, No dyspnea on exertion Cardiac: No chest pain, No orthopnea Abdomen: No pain, No nausea, No vomiting, No diarrhea Objective Vital Signs Date Time Temp Pulse Resp B/P (MAP) Pulse Ox O2 Delivery O2 Flow Rate FiO2 04/08/17 07:06 91 152/82 (105) 04/08/17 07:05 83 141/76 (97) 04/08/17 07:03 36.7 84 20 123/67 (85) 92 Room Air 04/08/17 04:42 36.9 61 19 159/84 (109) 95 Room Air 88 143/85 (104) 92 133/83 (100) 04/08/17 04:00 Room Air 04/08/17 00:16 37.1 82 18 108/65 (79) 94 Room Air 04/08/17 00:01 Room Air 04/07/17 20:28 36.5 88 20 103/66 (78) 94 Room Air 105/66 (79) 130/74 (92) 04/07/17 20:00 Room Air 04/07/17 18:00 36.8 91 18 109/70 99 Room Air 04/07/17 17:35 88 20 124/96 Room Air 04/07/17 16:30 78 20 138/80 98 Room Air 04/07/17 15:30 88 20 148/83 99 Room Air 04/07/17 14:49 82 20 158/83 97 Room Air 04/07/17 13:01 74 04/07/17 12:59 80 20 134/75 75 140/81 98 142/97 04/07/17 12:22 36.6 83 17 125/60 96 Room Air Physical Exam General Appearance: WD/WN, no apparent distress, + obese Eyes: PERRL, EOMI Respiratory/Chest: chest non-tender, lungs clear, normal breath sounds Cardiovascular: regular rate, rhythm, no murmur Abdomen: normal bowel sounds, non tender, soft Extremities: no pedal edema, no calf tenderness Neurologic/Psychiatric: alert, oriented x 3 Laboratory Results Last 24 Hours Test 04/07/17 12:51 04/07/17 13:15 04/07/17 13:45 04/07/17 13:49 Bedside Glucose 195 mg/dl White Blood Count 13.40 K/uL Red Blood Count 4.76 M/uL Hemoglobin 15.4 g/dL Hematocrit 44.2 % Mean Corpuscular Volume 92.9 fL Mean Corpuscular Hemoglobin 32.4 pg Mean Corpuscular Hemoglobin Concent 34.8 g/dl Platelet Count 425 K/uL Mean Platelet Volume 9.2 fL Neutrophils (%) (Auto) 67.6 % Lymphocytes (%) (Auto) 24.4 % Monocytes (%) (Auto) 5.7 % Eosinophils (%) (Auto) 1.6 % Basophils (%) (Auto) 0.4 % Neutrophils # (Auto) 9.06 K/uL Lymphocytes # (Auto) 3.27 K/uL Monocytes # (Auto) 0.76 K/uL Eosinophils # (Auto) 0.21 K/uL Basophils # (Auto) 0.06 K/uL RDW Standard Deviation 46.0 fL RDW Coefficient of Variation 13.6 % Immature Granulocyte % (Auto) 0.3 % Immature Granulocyte # (Auto) 0.04 K/uL Sodium Level 129 mmol/L Potassium Level 4.0 mmol/L Chloride Level 96 mmol/L Carbon Dioxide Level 24 mmol/L Anion Gap 9.0 mmol/L Blood Urea Nitrogen 7 mg/dl Creatinine 0.71 mg/dl Est Creatinine Clear Calc Drug Dose 118.5 ml/min Estimated GFR () 114.3 Estimated GFR (Non- 98.6 BUN/Creatinine Ratio 10.3 Random Glucose 184 mg/dl Estimated Average Glucose 180 mg/dl Hemoglobin A1c 7.9 % Calcium Level 9.1 mg/dl Total Bilirubin 0.5 mg/dl Aspartate Amino Transf (AST/SGOT) 27 U/L Alanine Aminotransferase (ALT/SGPT) 43 U/L Alkaline Phosphatase 113 U/L Total Creatine Kinase 78 U/L Creatine Kinase MB 1.5 ng/ml Creatine Kinase MB Ratio 1.9 Total Protein 8.3 gm/dl Albumin 3.9 gm/dl Globulin 4.4 gm/dl Albumin/Globulin Ratio 0.9 Thyroid Stimulating Hormone (TSH) 1.900 uIu/ml Chemistry Specimen Hemolysis Bedside Troponin I < 0.030 ng/ml Urine Color YELLOW Urine Appearance CLEAR Urine pH 5.5 Urine Specific [place] 1.011 Urine Protein NEG Urine Glucose (UA) NEG Urine Ketones NEG Urine Occult Blood NEG Urine Nitrite NEG Urine Bilirubin NEG Urine Urobilinogen NEG Urine Leukocyte Esterase NEG Urine WBC (Auto) 1-5 /hpf Urine RBC (Auto) 0-4 /hpf Urine Hyaline Casts (Auto) 0 /lpf Urine Epithelial Cells (Auto) 0-5 /lpf Urine Bacteria (Auto) NEG Test 04/07/17 18:05 04/07/17 20:34 04/07/17 20:47 04/08/17 05:15 Bedside Glucose 129 mg/dl 177 mg/dl Prothrombin Time 10.3 SECONDS Prothromb Time International Ratio 1.0 Total Creatine Kinase 51 U/L 52 U/L Creatine Kinase MB 1.0 ng/ml 1.1 ng/ml Creatine Kinase MB Ratio 2.0 2.1 Troponin I < 0.015 ng/ml < 0.015 ng/ml White Blood Count 12.57 K/uL Red Blood Count 4.28 M/uL Hemoglobin 13.9 g/dL Hematocrit 39.7 % Mean Corpuscular Volume 92.8 fL Mean Corpuscular Hemoglobin 32.5 pg Mean Corpuscular Hemoglobin Concent 35.0 g/dl RDW Standard Deviation 45.9 fL RDW Coefficient of Variation 13.8 % Platelet Count 395 K/uL Mean Platelet Volume 9.0 fL Sodium Level 135 mmol/L Potassium Level 3.8 mmol/L Chloride Level 101 mmol/L Carbon Dioxide Level 27 mmol/L Anion Gap 7.0 mmol/L Blood Urea Nitrogen 8 mg/dl Creatinine 0.69 mg/dl Est Creatinine Clear Calc Drug Dose 110.2 ml/min Estimated GFR () 116.8 Estimated GFR (Non- 100.8 BUN/Creatinine Ratio 11.9 Random Glucose 176 mg/dl Calcium Level 8.5 mg/dl Test 04/08/17 06:43 Bedside Glucose 183 mg/dl Assessment and Plan 51 y/o female presents with syncope after standing, with a history of DM II, hypothyroidism, and anxiety Orthostatic BP negative in ER. Syncope--pt has history of abnormal perfusion study in 2013 per outpt records. Was seen by cardiology but no further cardiac workup was needed at that time, and abnormal study was not thought to be definitive CAD, has baseline lateral t wave changes seem to be old -Brain MRI-Carotid Doppler ultrasound -Echo, lateral ECG changes -Trend cardiac enzymes negative -Continue ASA DM II--last HgbA1c checked 09/22/16 was 7.5 -Hold metformin-Insulin sliding scale lisinopril 2.5 mg PO qd for renal protection Hypothyroidism--clinically stable Synthroid 50 mcg PO qd Anxiety paroxetine 10 mg PO qd, states holidays are hard on her depression DVT prophylaxis-Enoxaparin 40 mg SC q24h -BIPIN de leon and SCDs Code Status -Level I, FULL RESUSCITATION STATUS
--- NOTE | 2017-04-08 15:27 | Discharge Instructions ---
Discharge Instructions Date of Service Apr 08, 2017. Admission Reason for Admission: Syncope Discharge Discharge Diagnosis / Problem: syncope Discharge Goals Goal(s): Diagnostic testing, Therapeutic intervention Activity Recommendations Activity Limitations: resume your previous activity . Instructions / Follow-Up Instructions / Follow-Up You have had evaluation of your passing out, including a MRI of your brain, Carotid doppler and Echocardiogram, no significant changes were seen. It is recommended that you follow up with Dr Agosto and have an eye exam with an eye doctor. The Eye exam is due to small changes seen on the MRI that may suggest some optic nerve irritation. It is often difficult to find out why a person passes out unless we have information at the time it is happening, if you feel like you may pass out again , please try to get to a health care provider as soon a possible so we can get more information to help look for the cause of this issue. Current Hospital Diet Patient's current hospital diet: Diabetes Type 2 Diet, AHA Diet (Heart Healthy) Discharge Diet Recommended Diet: Diabetes Type 2 Diet Pending Studies Studies pending at discharge: yes List of pending studies: final echocardiogram report Laboratory Results Hemoglobin A1c Test 04/07/17 13:15 Range/Units Estimated Average Glucose 180 mg/dl Hemoglobin A1c 7.9 H 4.5-5.6 % Medical Emergencies . Who to Call and When: Medical Emergencies: If at any time you feel your situation is an emergency, please call 911 immediately. . Non-Emergent Contact Non-Emergency issues call your: Primary Care Provider, [employer] Call Non-Emergent contact if: temperature is above 101, your pain is unusual for you . . "Provider Documentation" section prepared by Rigoberot Jerry. . VTE Core Measure Inpt VTE Proph given/why not?: Enoxaparin (Lovenox)KEYA, Johnna Coelho, SCD's
--- NOTE | 2017-04-08 15:31 | ECHOCARDIOGRAM REPORT ---
*NOTICE TO RECEIVING CONSTITUTION PARTY AGENCY This information is strictly Confidential and protected under [place] law. [place] law prohibits you from making any further disclosure of this information unless further disclosure is expressly permitted by the written consent of the person to whom it pertains or is authorized by law. A general authorization for the release of medical or other information is not sufficient for this purpose. Hospital accepts no responsibility if the information is made available to any other person, INCLUDING THE PATIENT. Interpretation Summary * Name: SHARON DREW Study Date: 04/08/2017 09:43 AM BP: 133/83 mmHg * Patient Location: .2T\S\S238\S\1 HR: 92 * : 1965 (M/d/yyyy) Gender: Female Height: 60 in * Age: 51 yrs Ethnicity: CA Weight: 291 lb * Ordering Physician: Steffanie Johnson * Referring Physician: Self, Referred * Performed By: Willie Gilliland RDCS * * Reason For Study: Syncope * BSA: 2.2 m2 * -- Conclusions -- * 1. Normal LV size and wall thickness. * 2. Hyperdynamic LV. LVEF >70%. No regional wall motion abnormalities. No intracavity/LVOT gradient. * 3. Normal RV size and function. * 4. No significant valvular pathology. * 5. No prior studies for comparison. Procedure Details * A complete two-dimensional transthoracic echocardiogram was performed (2D, M-mode, Doppler and color flow Doppler). * The study was technically difficult. * The study was technically difficult, but visualization was adequate with the administration of Definity ultrasound contrast. * A contrast injection of Definity was performed to improve assessment of LV function. * One vial of Definity ultrasound contrast was diluted in normal saline to a total volume of 10 ml. A total of '2' ml of solution was administered during imaging. * Lot # [id number] of Definity utilized for procedure. * Expiration date 1DEC18. * The attending nurse who injected the contrast agent was ERENDIRA Champion. Left Ventricle * The left ventricle is grossly normal size. * There is normal left ventricular wall thickness. * The left ventricle is hyperdynamic. * Ejection Fraction = >70 %. * No regional wall motion abnormalities noted. Right Ventricle * The right ventricle is grossly normal size. * The right ventricular systolic function is normal as assessed by tricuspid annular plane systolic excursion (TAPSE) (normal >1.5 cm). Atria * The left atrial size is normal. * Right atrial size is normal. * No ASD detected; PFO is not assessed. Mitral Valve * The mitral valve is grossly normal. * There is no mitral valve stenosis. * There is trace mitral regurgitation. Tricuspid Valve * There is trace tricuspid regurgitation. Pulmonic Valve * The pulmonary valve is inadequately visualized, but the Doppler data is adequate for interpretation. * Pulmonic stenosis is absent. * There is no significant pulmonary regurgitation. Great Vessels * The aortic root and proximal ascending aorta are normal sized. Pericardium/Pleural * There is no pericardial effusion. MMode 2D Measurements and Calculations IVSd 1.0 cm IVSs 1.4 cm LVIDd 4.7 cm LVIDs 2.4 cm LVPWd 0.89 cm LVPWs 1.5 cm IVS/LVPW 1.1 FS 49.9 % EDV(Teich) 102.5 ml ESV(Teich) 19.3 ml EF(Teich) 81.2 % EDV(cubed) 104.0 ml ESV(cubed) 13.1 ml EF(cubed) 87.4 % % IVS thick 33.7 % % LVPW thick 68.0 % LV mass(C)d 154.2 grams LV mass(C)dI 70.4 grams/m\S\2 LV mass(C)s 107.4 grams LV mass(C)sI 49.1 grams/m\S\2 SV(Teich) 83.3 ml SI(Teich) 38.0 ml/m\S\2 SV(cubed) 90.9 ml SI(cubed) 41.5 ml/m\S\2 ACS 2.2 cm LA dimension 4.6 cm asc Aorta Diam 2.9 cm LVOT diam 2.0 cm LVOT area 3.1 cm\S\2 LVAd ap4 20.7 cm\S\2 LVLd ap4 6.4 cm EDV(MOD-sp4) 54.1 ml EDV(sp4-el) 56.6 ml LVAs ap4 12.7 cm\S\2 LVLs ap4 5.5 cm ESV(MOD-sp4) 24.3 ml ESV(sp4-el) 25.1 ml EF(MOD-sp4) 55.1 % EF(sp4-el) 55.6 % LVAd ap2 28.8 cm\S\2 LVLd ap2 7.7 cm EDV(MOD-sp2) 93.0 ml EDV(sp2-el) 91.5 ml LVAs ap2 17.0 cm\S\2 LVLs ap2 6.2 cm ESV(MOD-sp2) 38.9 ml ESV(sp2-el) 39.3 ml EF(MOD-sp2) 58.1 % EF(sp2-el) 57.1 % LVLd %diff 16.5 % EDV(MOD-bp) 75.5 ml LVLs %diff 12.1 % ESV(MOD-bp) 32.6 ml EF(MOD-bp) 56.8 % SV(MOD-sp4) 29.8 ml SI(MOD-sp4) 13.6 ml/m\S\2 SV(MOD-sp2) 54.1 ml SI(MOD-sp2) 24.7 ml/m\S\2 SV(MOD-bp) 42.9 ml SI(MOD-bp) 19.6 ml/m\S\2 SV(sp4-el) 31.4 ml SI(sp4-el) 14.4 ml/m\S\2 SV(sp2-el) 52.2 ml SI(sp2-el) 23.9 ml/m\S\2 Doppler Measurements and Calculations MV E max nicol 93.1 cm/sec MV A max nicol 111.4 cm/sec MV E/A 0.84 MV dec time 0.19 sec Ao V2 max 161.3 cm/sec Ao max PG 10.4 mmHg Ao max PG (full) 3.3 mmHg LALA(V,A) 2.5 cm\S\2 LALA(V,D) 2.5 cm\S\2 LV V1 max PG 7.1 mmHg LV V1 max 133.5 cm/sec PA V2 max 180.0 cm/sec PA max PG 14.6 mmHg
--- NOTE | 2017-04-08 15:35 | Discharge Summary ---
Discharge Summary Date of Service Apr 08, 2017. Discharge Summary Admission Date: Apr 07, 2017 at 15:47 Discharge Date: Apr 08, 2017 Discharge Disposition: Home Principal Diagnosis: syncope Procedures: MRI shows some optic nerve ? fluid, recommended ophthalmologic evaluation as outpt Medication Reconciliation Continued Medications: Aspirin (Aspirin 81) 81 Mg Tab 81 MG PO DAILY Cyanocobalamin (Vitamin B-12 1000 Mcg) 1,000 Mcg Tab 1 TAB SL DAILY for 30 Days, #30 TAB 2 Refills Levothyroxine Sodium (Levothyroxine Sodium) 50 Mcg Tab 1 TAB PO DAILY for 30 Days, #30 TAB 5 Refills Lisinopril (Lisinopril) 2.5 Mg Tab 1 TAB PO DAILY for 30 Days, #30 TAB 5 Refills Metformin Hcl (Glucophage) 500 Mg Tab 1000 MG PO BID TWO 500 MG TABLETS TWICE DAILY, PER PATIENT. Paroxetine HCl (Paroxetine) 10 Mg Tab 10 MG PO DAILY Discharge Exam see todays progress note, pt was seen prior to discharge also Hospital Course 51 y/o female presents with syncope after standing, with a history of DM II, hypothyroidism, and anxiety Orthostatic BP negative in ER. Syncope--pt has history of abnormal perfusion study in 2013 per outpt records. Was seen by cardiology but no further cardiac workup was needed at that time, and abnormal study was not thought to be definitive CAD, has baseline lateral t wave changes seem to be old -Brain MRI-Carotid Doppler negative except for some optic nerve possible fluid, no vision changes at present -Echo, lateral ECG changes seen to be old, final echo report pending at time of discharge -Trend cardiac enzymes negative -Continue ASA DM II--last HgbA1c checked 09/22/16 was 7.5 resume metformin lisinopril 2.5 mg PO qd for renal protection, encourage hydration Hypothyroidism--clinically stable Synthroid 50 mcg PO qd Anxiety paroxetine 10 mg PO qd, states holidays are hard on her depression -Level I, FULL RESUSCITATION STATUS Total Time Spent: Greater than 30 minutes This includes examination of the patient, discharge planning, medication reconciliation, and communication with other providers. Discharge Instructions Please refer to the electronic Patient Visit Report (Discharge Instructions) for additional information.
== END 2017-04-08 17:37 | disposition home or self-care (01) ==
LOC: C.EDB 11:58 → C.2T 15:47 → ENRESERV 16:01 → C.2T 04-08 00:26
PROVIDERS: ADMIT Hospitalist; ATTEND Internal Medicine
DX: R55 Syncope and collapse (principal); S51.012A Laceration without foreign body of left elbow, initial encounter; W19.XXXA Unspecified fall, initial encounter; E11.9 Type 2 diabetes mellitus without complications; E03.9 Hypothyroidism, unspecified; F41.9 Anxiety disorder, unspecified; E66.01 Morbid (severe) obesity due to excess calories; Z79.82 Long term (current) use of aspirin; Z83.3 Family history of diabetes mellitus; Z82.49 Family history of ischemic heart disease and other diseases of the circulatory system; Z82.3 Family history of stroke; Z80.3 Family history of malignant neoplasm of breast; Z80.7 Family history of other malignant neoplasms of lymphoid, hematopoietic and related tissues; Z80.41 Family history of malignant neoplasm of ovary

== ENCOUNTER → 2017-08-10 | Outpatient (CLI) | payer OTHER ==
[~2017-08-10] MED LIST changes: +ASPI-435 PO; -CEPH500C2 PO; +CYAN10004 SL; +GLC/500 PO; -LEVO25TA5 PO; +LEVO50TA6 PO; -LISI-461 PO; +LISI2.5T5 PO; -METF750T PO; -SULF800T23 PO
== END | disposition home or self-care (01) ==
LOC: C.LABSPEC 14:37
PROVIDERS: ATTEND Obstetrics & Gynecology
DX: Z30.433 Encounter for removal and reinsertion of intrauterine contraceptive device (principal)

== ENCOUNTER 2017-12-19 08:13 | Emergency (ER) | payer OTHER ==
[~2017-12-19] VITALS: Ht 149.9 cm; Wt 119.4 kg
[~2017-12-19 08:13] MED LIST changes: +LISI-1116 PO; -LISI2.5T5 PO
[2017-12-19 08:24] VITALS: TEMP 36.7; Ht 149.9 cm; Wt 119.4 kg
--- NOTE | 2017-12-19 09:03 | DIAGNOSTIC IMAGING REPORT ---
SINGLE VIEW CHEST CLINICAL HISTORY: Atypical chest pain. FINDINGS: An AP, portable, upright chest radiograph is compared to study dated 04/07/2017. The examination is degraded by portable technique and patient rotation. The heart is top normal for projection. The pulmonary vascular is noncongested. The lungs and pleural spaces are clear. No pneumothorax is seen. The bony thorax is grossly intact. IMPRESSION: No acute cardiopulmonary abnormality. Electronically signed by: Ryan Underwood M.D. 12/19/2017 9:01 AM Dictated Date/Time: 12/19/2017 9:00 AM
[2017-12-19 09:14] LABS: BASO % 0.5 %; BASO ABS # 0.05 K/uL (0-0.2); EOS % 2.8 %; EOS ABS # 0.26 K/uL (0-0.5); HEMATOCRIT 40.4 % (37-47); IG# 0.03 K/uL (0.00-0.02); LYMPH % 28.6 %; LYMPH ABS # 2.65 K/uL (1.2-3.4); MEAN CELL VOLUME 88.4 fL (80-100); MEAN CORPUSCULAR HEMOGLOBIN 30.6 pg (25-34); MEAN CORPUSCULAR HGB CONC 34.7 g/dl (32-36); MEAN PLATELET VOLUME 8.6 fL (7.4-10.4); MONO % 7.4 %; MONO ABS # 0.69 K/uL (0.11-0.59); NEUT % 60.4 %; PLATELET COUNT 392 K/uL (130-400); RED CELL DISTRIBUTION WIDTH CV 13.4 % (11.5-14.5); RED CELL DISTRIBUTION WIDTH SD 43.5 fL (36.4-46.3); WHITE BLOOD COUNT 9.28 K/uL (4.8-10.8)
--- NOTE | 2017-12-19 09:32 | EMERGENCY ROOM VISIT NOTE ---
History Report prepared by Brooke: Yohana Alexander Under the Supervision of: Dr. Angel Lam M.D. First contact with patient: 08:28 Chief Complaint: CARDIAC ASSESSMENT Stated Complaint: HEART RACING,VISION,TINGLING IN ARMS&CHEST,DIZZY Nursing Triage Summary: pt reports at 0630 this am felt like heart racing , dizzy and seeing spots. worse on way to work. started feeling like pins and needles sensation History of Present Illness The patient is a 52 year old female who presents to the Emergency Room with complaints of chest pain and a headache that she describes as "pressure". She states that the headache began this morning when she woke up. The patient states that she had "wavy lines" in her vision and states that it was like she was "looking through water". She also states that she had chest pain that felt like "fireworks exploding" on her way to work in alternating areas of her chest. She states that she became dizzy and passed out. The patient also states that her stomach is tender. She states that she has an appointment with a neurologist later this month because she had a syncopal episode last March and she does not know what caused it. She states that shortly after she gets up in the morning she gets dizzy and has a "pounding" headache. The patient also states that she got a stress test 3/4 years ago and passed. She also states that she ate a normal breakfast this morning. Source of History: patient Onset: this morning Position: head, chest Quality: pressure (headache), other (chest pain feels like "fireworks exploding" ) Associated Symptoms: + LOC, + abdominal pain Note: additional symptoms: dizziness; vision with "wavy lines" that looks like she was "looking through water". Review of Systems See HPI for pertinent positives & negatives. A total of 10 systems reviewed and were otherwise negative. Past Medical & Surgical Medical Problems: (1) Diabetes mellitus (2) Hypothyroid (3) Syncope Family History Asthma Cancer (ovarian, breast, leukemia) Diabetes mellitus FH: heart disease Hypertension Myocardial infarction Stroke Social History Smoking Status: Never Smoker Alcohol Use: occasionally Marital Status: single Housing Status: lives with roommate Occupation Status: employed Current/Historical Medications Scheduled Aspirin (Aspirin 81), 81 MG PO DAILY Cyanocobalamin (Vitamin B-12 1000 Mcg), 1 TAB SL DAILY Levothyroxine Sodium (Levothyroxine Sodium), 1 TAB PO DAILY Liraglutide (Victoza), 1.2 MG DAILY Lisinopril (Lisinopril), 1 TAB PO DAILY Metformin Hcl (Glucophage), 1,000 MG PO BID Paroxetine HCl (Paroxetine), 10 MG PO DAILY Allergies Coded Allergies: Miconazole (Verified Adverse Reaction, Unknown, burning, 04/07/17) Physical Exam Vital Signs Date Time Temp Pulse Resp B/P (MAP) Pulse Ox O2 Delivery O2 Flow Rate FiO2 12/19/17 10:56 16 137/78 92 12/19/17 09:49 77 16 117/61 93 Room Air 12/19/17 09:49 93 Room Air 12/19/17 09:49 93 Room Air 12/19/17 08:57 85 12/19/17 08:24 36.7 103 20 129/74 93 Room Air Physical Exam GENERAL: Awake, alert, well-appearing, in no acute distress HENT: Normocephalic, atraumatic. Oropharynx unremarkable. EYES: Normal conjunctiva. Sclera non-icteric. NECK: Supple. No nuchal rigidity. FROM. No JVD. RESPIRATORY: Clear to auscultation. CARDIAC: Regular rate, normal rhythm. Extremities warm and well perfused. Pulses equal. ABDOMEN: Soft, non-distended. No tenderness to palpation. No rebound or guarding. No masses. RECTAL: Deferred. MUSCULOSKELETAL: Chest examination reveals no tenderness. The back is symmetrical on inspection without obvious abnormality. There is no CVA tenderness to palpation. No joint edema. LOWER EXTREMITIES: Calves are equal size bilaterally and non-tender. No edema. No discoloration. NEURO: Normal sensorium. No sensory or motor deficits noted. SKIN: No rash or jaundice noted. Medical Decision & Procedures ER Provider Diagnostic Interpretation: Radiology results as stated below per my review and radiologist interpretation: CT OF THE HEAD WITHOUT CONTRAST CLINICAL HISTORY: Headache. COMPARISON STUDY: MRI of the brain April 07, [address] DOSE: 537.48 mGy.cm TECHNIQUE: Helical axial images of the head were obtained without IV contrast. Automated exposure control was utilized for the study. A dose lowering technique was utilized adhering to the principles of ALARA. FINDINGS: No acute intracranial hemorrhage, midline shift or mass effect is present. Ventricular system is stable. Basilar cisterns are patent. There are no extra-axial collections. Potter-white differentiation is maintained. There are no findings to suggest acute dural sinus thrombosis or acute territorial infarct. There are no significant calvarial abnormalities. Visualized portions of the sinuses and mastoid air cells are clear. IMPRESSION: No acute intracranial findings. Electronically signed by: Chay Whitehead M.D. 12/19/2017 9:30 AM Dictated Date/Time: 12/19/2017 9:27 AM SINGLE VIEW CHEST CLINICAL HISTORY: Atypical chest pain. FINDINGS: An AP, portable, upright chest radiograph is compared to study dated 04/07/2017. The examination is degraded by portable technique and patient rotation. The heart is top normal for projection. The pulmonary vascular is noncongested. The lungs and pleural spaces are clear. No pneumothorax is seen. The bony thorax is grossly intact. IMPRESSION: No acute cardiopulmonary abnormality. Electronically signed by: Ryan Underwood M.D. 12/19/2017 9:01 AM Dictated Date/Time: 12/19/2017 9:00 AM Laboratory Results 12/19/17 09:00 Red Blood Count 4.57, Mean Corpuscular Volume 88.4, Mean Corpuscular Hemoglobin 30.6, Mean Corpuscular Hemoglobin Concent 34.7, Mean Platelet Volume 8.6, Neutrophils (%) (Auto) 60.4, Lymphocytes (%) (Auto) 28.6, Monocytes (%) (Auto) 7.4, Eosinophils (%) (Auto) 2.8, Basophils (%) (Auto) 0.5, Neutrophils # (Auto) 5.60, Lymphocytes # (Auto) 2.65, Monocytes # (Auto) 0.69, Eosinophils # (Auto) 0.26, Basophils # (Auto) 0.05 12/19/17 09:00 Test 12/19/17 09:00 12/19/17 09:19 White Blood Count 9.28 K/uL (4.8-10.8) Red Blood Count 4.57 M/uL (4.2-5.4) Hemoglobin 14.0 g/dL (12.0-16.0) Hematocrit 40.4 % (37-47) Mean Corpuscular Volume 88.4 fL (80-100) Mean Corpuscular Hemoglobin 30.6 pg (25-34) Mean Corpuscular Hemoglobin Concent 34.7 g/dl (32-36) Platelet Count 392 K/uL (130-400) Mean Platelet Volume 8.6 fL (7.4-10.4) Neutrophils (%) (Auto) 60.4 % Lymphocytes (%) (Auto) 28.6 % Monocytes (%) (Auto) 7.4 % Eosinophils (%) (Auto) 2.8 % Basophils (%) (Auto) 0.5 % Neutrophils # (Auto) 5.60 K/uL (1.4-6.5) Lymphocytes # (Auto) 2.65 K/uL (1.2-3.4) Monocytes # (Auto) 0.69 K/uL (0.11-0.59) Eosinophils # (Auto) 0.26 K/uL (0-0.5) Basophils # (Auto) 0.05 K/uL (0-0.2) RDW Standard Deviation 43.5 fL (36.4-46.3) RDW Coefficient of Variation 13.4 % (11.5-14.5) Immature Granulocyte % (Auto) 0.3 % Immature Granulocyte # (Auto) 0.03 K/uL (0.00-0.02) Anion Gap 10.0 mmol/L (3-11) Est Creatinine Clear Calc Drug Dose 134.3 ml/min Estimated GFR () 123.5 Estimated GFR (Non- 106.6 BUN/Creatinine Ratio 13.6 (10-20) Calcium Level 8.8 mg/dl (8.5-10.1) Total Bilirubin 0.4 mg/dl (0.2-1) Direct Bilirubin 0.1 mg/dl (0-0.2) Aspartate Amino Transf (AST/SGOT) 20 U/L (15-37) Alanine Aminotransferase (ALT/SGPT) 33 U/L (12-78) Alkaline Phosphatase 74 U/L (45-117) Total Creatine Kinase 64 U/L (26-192) Creatine Kinase MB 1.1 ng/ml (0.5-3.6) Creatine Kinase MB Ratio 1.7 (0-3.0) Troponin I < 0.015 ng/ml (0-0.045) Total Protein 7.0 gm/dl (6.4-8.2) Albumin 3.4 gm/dl (3.4-5.0) Lipase 151 U/L (73-393) Urine Color YELLOW Urine Appearance CLEAR (CLEAR) Urine pH 6.5 (4.5-7.5) Urine Specific [place] 1.010 (1.000-1.030) Urine Protein NEG (NEG) Urine Glucose (UA) NEG (NEG) Urine Ketones NEG (NEG) Urine Occult Blood NEG (NEG) Urine Nitrite NEG (NEG) Urine Bilirubin NEG (NEG) Urine Urobilinogen NEG (NEG) Urine Leukocyte Esterase NEG (NEG) Labs reviewed by ED physician. ECG Per My Interpretation Indication: chest pain Rate (beats per minute): 95 Rhythm: normal sinus Findings: other (No ST elevation or ST depression; old inferior infarct) Change: no significant change ED Course 0829: Past medical records reviewed. The patient was evaluated in room C10. A complete history and physical examination was performed. 1038: Upon reexamination the patient is resting. I discussed results and treatment plan with the patient. She verbalizes agreement and understanding. The patient is ready for discharge. Medical Decision Differential diagnosis: Etiologies such as cardiac ischemia, aortic dissection, pulmonary embolism, pneumonia, pneumothorax, musculoskeletal, infections, pericarditis, myocarditis , esophageal rupture, gastrointestinal, as well as others were entertained. This is a 52-year-old female who presents the emergency department with what appears to be an ocular migraine. After the wavy lines in her vision passed the patient developed a headache. She reports it is not a severe headache and has had similar headaches in the past. She has had an MRI of her her head in the past previously however using shared medical decision making with the patient she is requesting a CAT scan of the head. I feel that this is reasonable and the patient was sent for CAT scan of the head which did not show any acute process. She has a normal EKG as well as normal CK-MB and troponin here in the emergency department. Based on these findings I feel the patient can be safely discharged home. She refused all medications here in the emergency department. She really has follow-up appointment scheduled both neurology as well as cardiology and I stressed the need to continue these appointments. Patient was in agreement with the treatment plan. Medication Reconcilliation Current Medication List: was personally reviewed by me Blood Pressure Screening Patient's blood pressure: Normal blood pressure Impression Primary Impression: Ocular migraine Scribe Attestation The scribe's documentation has been prepared under my direction and personally reviewed by me in its entirety. I confirm that the note above accurately reflects all work, treatment, procedures, and medical decision making performed by me. Departure Information Dispostion Home / Self-Care Referrals RV. Rainey MD (PCP) Forms IMPORTANT VISIT INFORMATION Patient Instructions My [facility] Additional Instructions Follow up with DR Mckeon's office No strenuous activity until follow up You have been examined and treated today on an emergency basis only. This is not a substitute for, or an effort to provide, complete comprehensive medical care. It is impossible to recognize and treat all injuries or illnesses in a single emergency department visit. It is therefore important that you follow up closely with Dr Mendoza. Call as soon as possible for an appointment. Thank you for your time and consideration. I look forward to speaking with you again soon. Please don't hesitate to call us if you have any questions.
[2017-12-19 09:38] LABS: BLOOD UREA NITROGEN 8 mg/dl (7-18); CREATININE 0.57 mg/dl (0.60-1.20); GLUCOSE 120 mg/dl (70-99)
[2017-12-19 09:39] LABS: ALBUMIN 3.4 gm/dl (3.4-5.0); ALKALINE PHOSPHATASE 74 U/L (45-117); ALT/SGPT 33 U/L (12-78); AST/SGOT 20 U/L (15-37); CALCIUM 8.8 mg/dl (8.5-10.1); CARBON DIOXIDE 25 mmol/L (21-32); CKMB 1.1 ng/ml (0.5-3.6); LIPASE 151 U/L (73-393); POTASSIUM 3.7 mmol/L (3.5-5.1); SODIUM 136 mmol/L (136-145)
[2017-12-19] MEDS ORDERED: LIRA18IN (09:45)
[2017-12-19 09:49] VITALS: PULSE 77; O2SAT 93
[2017-12-19] MEDS ORDERED: SODIUM CHLORIDE 0.9% 1000ML 1,000 ML IV STA (10:14)
[2017-12-19] MEDS ORDERED: MECLIZINE HCL 25 MG TAB PO STA (10:14)
[2017-12-19 10:56] VITALS: BP 137/78; O2SAT 92
== END 2017-12-19 11:00 | disposition home or self-care (01) ==
LOC: C.EDB 08:15 → C.EDC 11:00
DX: G43.B0 Ophthalmoplegic migraine, not intractable (principal); I10 Essential (primary) hypertension; E03.9 Hypothyroidism, unspecified; Z79.82 Long term (current) use of aspirin; Z79.899 Other long term (current) drug therapy; Z88.8 Allergy status to other drugs, medicaments and biological substances

== ENCOUNTER 2021-07-24 03:26 | Inpatient (IN) ==
[2021-07-24] MEDS ORDERED: MoRPHine SULFATE 4 MG/ML 1 ML CARP\\VIAL IV STA ×2 (03:50→06:06)
[2021-07-24] MEDS ORDERED: SODIUM CHLORIDE 0.9% 1000ML 1,000 ML IV ONE (03:50)
[2021-07-24] MEDS ORDERED: ONDANSETRON INJ 2 MG/ML 2 ML VIAL IV STA ×2 (03:50→06:06)
--- NOTE | 2021-07-24 03:55 | Emergency Department Note ---
History of Present Illness General Chief complaint: Abdominal Pain Stated complaint: ABDOMINAL PAIN Time Seen by Provider: 07/24/21 03:35 History of Present Illness Maximum Pain Intensity: 8 55-year-old female presents emergency department with 1 day history of left lower quadrant abdominal pain with associated low back pain. Patient of note had a colonoscopy 3 days ago has been doing well since until yesterday when she developed lower quadrant abdominal pain and back pain. Patient states that she did speak to her GI physician and she had outpatient x-rays of her abdomen and chest performed yesterday. Patient states the pain is moderate in left lower quadrant and in her low back. There are no other mitigating or alleviating factors; patient does state to me that she did have a polyp cauterized, denies any bloody stools. Home Medications Medication Instructions Recorded Confirmed Type aspirin 81 mg tablet,delayed 81 mg PO QPM 03/26/18 07/20/21 History release cholecalciferol (vitamin D3) 50 2,000 unit PO QPM 03/26/18 07/20/21 History mcg (2,000 unit) capsule (Vitamin D3) cyanocobalamin (vitamin B-12) 1,000 mcg PO QPM 03/26/18 07/20/21 History 1,000 mcg tablet,extended release (Vitamin B-12 ER) glucosamine-chondroitin 250 mg-200 1 tab PO QPM 03/26/18 07/20/21 History mg tablet (Osteo Bi-Flex) levonorgestrel 20 mcg/24 hours (7 1 device IU UD ea 01/02/19 07/16/21 History yrs) 52 mg intrauterine device (Mirena) meclizine 25 mg tablet 25 mg PO TID PRN #20 tab 07/31/19 07/20/21 Rx BD Ultra-Fine Sushila Pen Needle 32 #100 ea NS 06/29/20 07/15/21 Rx gauge x 5/32" (pen needle, diabetic) clobetasol 0.05 % topical foam 1 applic TOP DAILY #50 gm 06/30/20 07/16/21 Rx lisinopril 2.5 mg tablet 2.5 mg PO QPM #90 tab 08/31/20 07/20/21 Rx Victoza 3-Nikos 0.6 mg/0.1 mL (18 1.8 mg SUBCUT QPM 90 Days #27 ml NS 10/13/20 07/20/21 Rx mg/3 mL) subcutaneous pen injector (liraglutide) metformin 500 mg tablet,extended 1,000 mg PO BIDM #360 tab 12/07/20 07/20/21 Rx release 24 hr atorvastatin 20 mg tablet 20 mg PO QPM #30 tab 03/09/21 07/20/21 Rx acetazolamide 500 mg 500 mg PO HS cap 04/02/21 07/20/21 History capsule,extended release sodium sul 1.479 gram-potas ch See Rx Instructions PO .COMPLEX 04/06/21 07/15/21 Rx 0.188 gram-magnes sul 0.225 gram #24 tab tablet (Sutab) paroxetine HCl 10 mg tablet 10 mg PO QPM #90 tab 04/14/21 07/20/21 Rx levothyroxine 50 mcg tablet 50 mcg PO QAM 07/16/21 07/20/21 History Allergies Allergy/AdvReac Type Severity Reaction Status Date / Time miconazole Allergy Intermediate burning Verified 07/20/21 07:54 skin cleanser combination Allergy Intermediate BURNING/AMRIT Verified 07/20/21 07:54 no.17 H [From Monistat 3] Past Med/Surg History Medical History Anxiety and depression Arthritis Diabetes mellitus, type 2 History of uterine fibroid Hx of vertigo Hypothyroidism Irregular heart beat FOLLOWED BY DR. GARCIA Leg edema Neuropathy Non-healing surgical wound FLUID FROM UMBILICAL HERNIA>SMALL LEAKAGE OCCURS Sleep apnea CPAP Surgical History Difficult airway for intubation Glidescope #3 04/2018 hernia repair. History of colonoscopy History of esophagogastroduodenoscopy (EGD) History of mandibular surgery History of tooth extraction History of ventral hernia repair Hx of abdominal surgery Umbilical exploration, excision of suture granuloma, closure of superficial fistula Hx of carpal tunnel repair LEFT Family History Mother Ovarian cancer Stroke Family/Other Diabetes Father FH: deafness or hearing loss Cardiac disorder Hypertension Family/Other Breast cancer Unknown Allergies Environmental allergies Family/Other Asthma Grandfather (Maternal) Family history of diabetes mellitus Other No family history of adverse response to anesthesia Social History Smoking Status: Never smoker Cigarettes Per Day: 0; Second Hand Exposure: No; Hx Alcohol Use: Yes Hx Substance Use: No Preferred Language: [place] Communication Ability: Effective Visual Impairment: No Limitations Fusing Furnace Loader Required: No Beliefs That Will Affect Care: None Current Living Situation: Alone Feels Safe at Home: Yes Assistive Devices: Glasses Review of Systems A total of 10 systems reviewed and were otherwise negative Constitutional: no fever Gastrointestinal: + abdominal pain and + nausea Musculoskeletal: + back pain Physical Exam Vital Signs Vital Signs - 24 hr 07/24/21 03:30 07/24/21 05:17 07/24/21 06:30 Temperature 36.3 C L Temperature Source Temporal Artery Scan Pulse Rate 86 Pulse Rate [Right Finger] 92 H 93 H Respiratory Rate 16 18 18 Respiratory Effort / Characteristics Non-Labored Spontaneous Non-Labored Spontaneous Respiratory Depth Normal Normal Respiratory Pattern Regular Regular Blood Pressure 161/83 H Blood Pressure [Left Arm] 141/81 H 149/70 H Blood Pressure Mean 109 Blood Pressure Mean [Left Arm] 101 96 Blood Pressure Position [Left Arm] Lying Lying Pulse Oximetry 98 94 Oxygen Delivery Method Room Air Room Air Sepsis Recent Fever Within 48 Hours No Sepsis New/Unexplained Change in Mental Status N/A Sepsis Action Taken by Nursing No Action Required VITAL SIGNS - Vital signs and nursing notes were reviewed. GENERAL -55-year-old male appearing her stated age who is in no acute distress. Communicates well with provider and answers questions appropriately. SKIN - Without rashes. HEAD - NC/AT. EYES - PERRL with EOMI bilaterally. Sclera anicteric. Palpebral conjunctiva pink and moist with no injection noted. EARS - No deformities of external structures noted on gross examination bilaterally. NOSE - Midline and without cyanosis. No epistaxis or purulent drainage noted. Septum midline without deviation or septal hematoma noted. MOUTH/OROPHARYNX - Without perioral cyanosis. Buccal mucosa pink and moist and without leukoplakia. Tongue midline with equal elevation of palate bilaterally. No tonsillar hypertrophy, erythema, or exudates noted. [] dentition noted. NECK - Neck with FROM. Supple to palpation. LUNGS - Chest wall symmetric without accessory muscle use, intercostals retractions, or central cyanosis. Normal vesicular breath sounds CTA B/L. No wheezes, rales, or rhonchi appreciated. CARDIAC - RRR with S1/S2. No murmur, rubs, or gallops appreciated. ABDOMEN - Abdominal contour soft without pulsations or visible masses.Morbidly obese; BS normoactive all four quadrants. Mild llq tenderness; no palpable masses, hepatosplenomegaly, or ascites noted. EXTREMITIES - No clubbing or peripheral cyanosis. +5/5 strength noted in UE/LE bilaterally. NEUROLOGIC - Cranial nerves II through XII grossly intact. PSYCH - A&Ox3 and cooperates fully with examiner. Pt is very pleasant and interacts well with examiner. Course Reevaluation(s) Reevaluation #1: 612am Patient continues to complain of pain patient does have elevated liver enzymes the CT is suggestive of of possible pancreatitis, I have added a lipase, the patient received another dose of IV Zofran and morphine. Reevaluation #2: Case was discussed with the hospitalist for admission at 6:30 AM. Administered Medications Discontinued Medications Sodium Chloride (Nss 1000ml) 1,000 mls @ 999 mls/hr IV .Q1H1M ONE Stop: 07/24/21 04:50 Last Infusion: 07/24/21 06:33 Dose: 0 mls/hr Documented by: [id number] Admin: 07/24/21 04:20 Dose: 999 mls/hr Documented by: [id number] Ioversol (Optiray 320 100ml) 94 ml IV ONCE ONE Stop: 07/24/21 05:13 Last Admin: 07/24/21 05:13 Dose: 94 ml Documented by: [id number] Morphine Sulfate (Morphine Sulfate 4 Mg/Ml 1 Ml Carp\\Vial) 4 mg IV NOW STA Stop: 07/24/21 03:51 Last Admin: 07/24/21 04:15 Dose: 4 mg Documented by: [id number] Morphine Sulfate (Morphine Sulfate 4 Mg/Ml 1 Ml Carp\\Vial) 4 mg IV NOW STA Stop: 07/24/21 06:07 Last Admin: 07/24/21 06:22 Dose: 4 mg Documented by: [id number] Ondansetron HCl (Ondansetron Inj 2 Mg/Ml 2 Ml Vial) 4 mg IV NOW STA Stop: 07/24/21 03:51 Last Admin: 07/24/21 04:15 Dose: 4 mg Documented by: [id number] Ondansetron HCl (Ondansetron Inj 2 Mg/Ml 2 Ml Vial) 4 mg IV NOW STA Stop: 07/24/21 06:07 Last Admin: 07/24/21 06:22 Dose: 4 mg Documented by: [id number] Medical Decision Making Medical Records Attestation: I reviewed the patient's medical records. Laboratory Data Attestation: I reviewed the patient's lab results. Result diagrams: 07/24/21 04:06 07/24/21 04:06 Lab Results 07/24/21 07/24/21 07/24/21 Range/Units 04:03 04:06 04:06 WBC 16.37 H (4.8-10.8) K/uL RBC 4.59 (4.2-5.4) M/uL Hgb 14.7 (12.0-16.0) g/dL Hct 42.5 (37-47) % MCV 92.6 (80-100) fL MCH 32.0 (25-34) pg MCHC 34.6 (32-36) g/dL RDW Std Deviation 44.1 (36.4-46.3) fL RDW Coeff of Nathan 13.0 (11.5-14.5) % Plt Count 413 H (130-400) K/uL MPV 8.9 (7.4-10.4) fL Immature Gran % (Auto) 0.2 % Neut % (Auto) 83.7 % Lymph % (Auto) 8.5 % Lee % (Auto) 6.7 % Eos % (Auto) 0.7 % Baso % (Auto) 0.2 % Neut # (Auto) 13.71 H (1.4-6.5) K/uL Lymph # (Auto) 1.39 (1.2-3.4) K/uL Lee # (Auto) 1.10 H (0.11-0.59) K/uL Eos # (Auto) 0.11 (0-0.5) K/uL Baso # (Auto) 0.03 (0-0.2) K/uL Immature Gran # (Auto) 0.03 H (0.00-0.02) K/uL Sodium 134 L (136-145) mmol/L Potassium 3.8 (3.5-5.1) mmol/L Chloride 101 (98-107) mmol/L Carbon Dioxide 23 (21-32) mmol/L Anion Gap 10 (3-11) BUN 7 (6-23) mg/dl Creatinine 0.53 L (0.6-1.2) mg/dl Est Cr Clr Drug Dosing Not Reportable Est GFR ( Amer) 123.9 ml/min Est GFR (Non-Af Amer) 106.9 ml/min BUN/Creatinine Ratio 13.2 (10-20) Glucose 214 H (70-99(Fasting)) mg/dl Calcium 9.1 (8.5-10.1) mg/dl Total Bilirubin 1.9 H (0.2-1.0) mg/dl AST 218 H (13-39) U/L ALT 280 H (7-52) U/L Alkaline Phosphatase 210 H (34-104) U/L Total Protein 6.9 (6.0-8.3) gm/dl Albumin 4.0 (3.4-5.0) gm/dl Globulin 2.9 (2.5-4.0) gm/dl Albumin/Globulin Ratio 1.4 (0.9-2) Urine Color Dark Yellow Urine Appearance Clear (Clear) Urine pH 5.0 (4.5-7.5) Ur Specific [place] 1.008 (1.000-1.030) Urine Protein Negative (Negative) Urine Glucose (UA) Negative (Negative) Urine Ketones Negative (Negative) Urine Blood Negative (Negative) Urine Nitrite Negative (Negative) Urine Bilirubin Negative (Negative) Urine Urobilinogen Negative (Negative) Ur Leukocyte Esterase Negative (Negative) Imaging Data Radiologist's Impression: CT abdomen pelvis per radiology states gallbladder is mildly distended mild stranding in the upper retroperitoneum. that is suggestive of pancreatitis MDM Narrative Medical decision making differential diagnosis bowel obstruction constipation diverticulitis gastroenteritis colitis post colonoscopy pain Impression & Plan Abdominal pain, Pancreatitis, Transaminitis Discharge Plan Visit Data Chief Complaint: Abdominal Pain Stated Complaint: ABDOMINAL PAIN ED Provider: Jose Balderrama Discharge Problem: Abdominal pain, Pancreatitis, Transaminitis Forms Stand Alone Forms: My [facility] Prescriptions Prescriptions: No Action meclizine 25 mg tablet 25 mg PO TID PRN (Reason: dizziness) Qty: 20 RF: 0 (DME) pen needle, diabetic [BD Ultra-Fine Sushila Pen Needle] 32 gauge x 5/32" needle See Dose Instructions .ROUTE .MEDSUPPLY Qty: 100 RF: 3 clobetasol 0.05 % foam 1 applic TOP DAILY Qty: 50 RF: 1 lisinopril 2.5 mg tablet 2.5 mg PO QPM Qty: 90 RF: 3 Victoza 3-Nikos 0.6 mg/0.1 mL (18 mg/3 mL) pen injector 1.8 mg SUBCUT QPM 90 Days Qty: 27 RF: 3 metformin 500 mg tablet extended release 24 hr 1,000 mg PO BIDM Qty: 360 RF: 3 atorvastatin 20 mg tablet 20 mg PO QPM Qty: 30 RF: 5 Sutab 1.479-0.188- 0.225 gram tablet See Rx Instructions PO .COMPLEX Qty: 24 RF: 0 paroxetine HCl 10 mg tablet 10 mg PO QPM Qty: 90 RF: 1 Mirena 20 mcg/24 hours (5 yrs) 52 mg intrauterine device 1 device IU UD RF: 0 acetazolamide 500 mg capsule, extended release 500 mg PO HS RF: 0 cyanocobalamin (vitamin B-12) [Vitamin B-12] 1,000 mcg Tablet Extended Release 1,000 mcg PO QPM RF: 0 aspirin 81 mg Tablet,Delayed Release (Dr/Ec) 81 mg PO QPM RF: 0 cholecalciferol (vitamin D3) [Vitamin D3] 2,000 unit Capsule 2,000 unit PO QPM RF: 0 glucosamine-chondroitin [Osteo Bi-Flex] 250-200 mg Tablet 1 tab PO QPM RF: 0 levothyroxine 50 mcg tablet 50 mcg PO QAM RF: 0 Referrals Referrals: Brodie Maria MD [Primary Care Provider] - Discharge Problem: Abdominal pain Qualifiers: Abdominal location: generalized Qualified Code(s): R10.84 - Generalized abdominal pain Pancreatitis Qualifiers: Chronicity: acute Pancreatitis type: unspecified pancreatitis type Acute pancreatitis complication: unspecified Qualified Code(s): K85.90 - Acute panc reatitis without necrosis or infection, unspecified
[2021-07-24 04:19] LABS: Appearance Urine Clear (Clear); Bilirubin Urine Negative (Negative); Blood Urine Negative (Negative); Color Urine Dark Yellow; Glucose Urine UA Negative (Negative); Ketones Urine Negative (Negative); Leukocyte Esterase Urine Negative (Negative); Nitrite Urine Negative (Negative); Protein Urine Negative (Negative); Specific Gravity Urine 1.008 (1.000-1.030); Urobilinogen Urine Negative (Negative)
[2021-07-24 04:19] LABS: Basophils # (auto) 0.03 K/uL (0-0.2); Basophils % (auto) 0.2 %; Eosinophils # (auto) 0.11 K/uL (0-0.5); Eosinophils % (auto) 0.7 %; Hematocrit (blood only) 42.5 % (37-47); Hemoglobin 14.7 g/dL (12.0-16.0); Immature Granulocytes # (auto) 0.03 K/uL (0.00-0.02); Immature Granulocytes % (auto) 0.2 %; Lymphocytes # (auto) 1.39 K/uL (1.2-3.4); Lymphocytes % (auto) 8.5 %; Mean Corpuscular Hgb Conc 34.6 g/dL (32-36); Mean Corpuscular Volume 92.6 fL (80-100); Mean Platelet Volume 8.9 fL (7.4-10.4); Monocytes % (auto) 6.7 %; Neutrophils # (auto) 13.71 K/uL (1.4-6.5); Neutrophils % (auto) 83.7 %; Platelet Count 413 K/uL (130-400); RDW Standard Deviation 44.1 fL (36.4-46.3); Red Blood Count 4.59 M/uL (4.2-5.4); White Blood Count 16.37 K/uL (4.8-10.8)
[2021-07-24 04:43] LABS: Alanine Aminotransferase 280 U/L (7-52); Albumin Globulin Ratio 1.4 (0.9-2); Alkaline Phosphatase 210 U/L (34-104); Anion Gap 10 (3-11); Aspartate Aminotransferase 218 U/L (13-39); BUN Creatinine Ratio 13.2 (10-20); Bilirubin,Total 1.9 mg/dl (0.2-1.0); Blood Urea Nitrogen 7 mg/dl (6-23); Calcium 9.1 mg/dl (8.5-10.1); Carbon Dioxide 23 mmol/L (21-32); Chloride 101 mmol/L (98-107); Est GFR (African American) 123.9 ml/min; Est GFR (Non-African American) 106.9 ml/min; Globulin 2.9 gm/dl (2.5-4.0); Glucose 214 mg/dl (70-99(Fasting)); Potassium 3.8 mmol/L (3.5-5.1); Sodium 134 mmol/L (136-145); Total Protein 6.9 gm/dl (6.0-8.3)
[2021-07-24] MEDS ORDERED: OPTIRAY 320 100ml IV ONE (05:12)
--- NOTE | 2021-07-24 06:22 | History & Physical Report ---
Date of Service July 24, 2021 Assessment & Plan (1) Abdominal pain: Plan: Abdominal pain? Choledocholithiasis CTA with contrast: Mild stranding in the upper retroperitoneum suspicious for pancreatitis, mild gallbladder distention, IUD in place, left fundal uterine fibroid 3.5 cm Gallbladder ultrasound pending Patient does endorse several days of ward/white stools, right and left upper quadrant pain although not worsened by meals Leukocytosis to 16.37 with NLR approximately 14 Creatinine 0.53 Glucose 214 AST/ALT acutely elevated from normal to 218/280, total bilirubin 1.9, alk phos 210 Lipase pending. Given symptoms and CT will start on rest of IV fluids, may discontinue if lipase normal UA bland Patient did have colonoscopy 3 days ago with 4 mm polyp removed from transverse colon. Outpatient KUB/CXR yesterday was normal, no evidence of perforation/free air. Continue empiric Zosyn (2) Diabetes mellitus type 2, uncontrolled: Plan: Type 2 diabetes Hold home metformin Hold home Victoza Hyperlipidemia Continue atorvastatin 20 mg every afternoon (3) Anxiety with depression: Plan: - Continue home paroxetine (4) Hypertension: Plan: Hypertension Continue home lisinopril 2.5 mg nightly Continue aspirin daily (5) Hypothyroid: Plan: Hypothyroidism Continue home Synthroid 50 mcg p.o. every morning (6) Sleep apnea: Plan: CPAP nightly as needed Plan: DVT prophylaxis: SCDs, Lovenox post GI eval Diet: N.p.o. Disposition: Medical/surgical CODE STATUS: Full code History of Present Illness Primary Care Provider: Brodie Maria MD This is a 55-year-old female who presented to the emergency department with 1 day of left lower quadrant abdominal pain and low back pain. Had a colonoscopy 3 days ago, 2 days ago mid upper and left sided abdominal pain. A little better durign the day, then called GI. Had XR/KUB which was OK. Pain was tolerable through the evening, then around midnight 'got so bad I could scream.' Seemed to be all over her abdomen and penetrating through to her lower back. Ate oatmeal, has not noticed an effect of food on her symptoms. +vomiting after taking some miralax around 2 oclock yesterday. +nausea and lightheadedness. Pain now seems worst above her bellybutton off to the left, some radiating pain on the RUQ at time of HPI. Improved with morphine in ER. Feels the pain mosly in her R back at time of bedside assessment. Breathing in deep makes the pain makes it worse and feels a pressure like pain NO remitting factors No chest pain, no chest pressure. Some chest tightness with nausea. BMs have been white/newman for her last 2 bowel movements Feels she had a similar pain in 2008 with her menstrual cycles. No longer has menses, has been menopausal for 8 years 2/2 IUD. Medical History: Reviewed Medications: Reviewed. Took evening meds at 8:30, only took aspirin lisinopril paroxetine Surgical History: Reviewed Allergies: Reviewed. Monostate, Social History: No alcohol use, no tobacco product use. Code Status:Surrogate decision maker would be daughter Catina Falcon. Full Code. Allergies Allergy/AdvReac Type Severity Reaction Status Date / Time miconazole Allergy Intermediate burning Verified 07/20/21 07:54 skin cleanser combination Allergy Intermediate BURNING/AMRIT Verified 07/20/21 07:54 no.17 [facility] Home Medications Medication Instructions Recorded Confirmed Type aspirin 81 mg tablet,delayed 81 mg PO QPM 03/26/18 07/20/21 History release cholecalciferol (vitamin D3) 50 2,000 unit PO QPM 03/26/18 07/20/21 History mcg (2,000 unit) capsule (Vitamin D3) cyanocobalamin (vitamin B-12) 1,000 mcg PO QPM 03/26/18 07/20/21 History 1,000 mcg tablet,extended release (Vitamin B-12 ER) glucosamine-chondroitin 250 mg-200 1 tab PO QPM 03/26/18 07/20/21 History mg tablet (Osteo Bi-Flex) levonorgestrel 20 mcg/24 hours (7 1 device IU UD ea 01/02/19 07/16/21 History yrs) 52 mg intrauterine device (Mirena) meclizine 25 mg tablet 25 mg PO TID PRN #20 tab 07/31/19 07/20/21 Rx BD Ultra-Fine Sushila Pen Needle 32 #100 ea NS 06/29/20 07/15/21 Rx gauge x 5/32" (pen needle, diabetic) clobetasol 0.05 % topical foam 1 applic TOP DAILY #50 gm 06/30/20 07/16/21 Rx lisinopril 2.5 mg tablet 2.5 mg PO QPM #90 tab 08/31/20 07/20/21 Rx Victoza 3-Nikos 0.6 mg/0.1 mL (18 1.8 mg SUBCUT QPM 90 Days #27 ml NS 10/13/20 07/20/21 Rx mg/3 mL) subcutaneous pen injector (liraglutide) metformin 500 mg tablet,extended 1,000 mg PO BIDM #360 tab 12/07/20 07/20/21 Rx release 24 hr atorvastatin 20 mg tablet 20 mg PO QPM #30 tab 03/09/21 07/20/21 Rx acetazolamide 500 mg 500 mg PO HS cap 04/02/21 07/20/21 History capsule,extended release sodium sul 1.479 gram-potas ch See Rx Instructions PO .COMPLEX 04/06/21 07/15/21 Rx 0.188 gram-magnes sul 0.225 gram #24 tab tablet (Sutab) paroxetine HCl 10 mg tablet 10 mg PO QPM #90 tab 04/14/21 07/20/21 Rx levothyroxine 50 mcg tablet 50 mcg PO QAM 07/16/21 07/20/21 History Past Med/Surg History Medical History Anxiety and depression Arthritis Diabetes mellitus, type 2 History of uterine fibroid Hx of vertigo Hypothyroidism Irregular heart beat FOLLOWED BY DR. GARCIA Leg edema Neuropathy Non-healing surgical wound FLUID FROM UMBILICAL HERNIA>SMALL LEAKAGE OCCURS Sleep apnea CPAP Surgical History Difficult airway for intubation Glidescope #3 04/2018 hernia repair. History of colonoscopy History of esophagogastroduodenoscopy (EGD) History of mandibular surgery History of tooth extraction History of ventral hernia repair Hx of abdominal surgery Umbilical exploration, excision of suture granuloma, closure of superficial fistula Hx of carpal tunnel repair LEFT Family History Mother Ovarian cancer Stroke Family/Other Diabetes Father FH: deafness or hearing loss Cardiac disorder Hypertension Family/Other Breast cancer Unknown Allergies Environmental allergies Family/Other Asthma Grandfather (Maternal) Family history of diabetes mellitus Other No family history of adverse response to anesthesia Social History Smoking Status: Never smoker Cigarettes Per Day: 0; Second Hand Exposure: No; Hx Alcohol Use: Yes Hx Substance Use: No Preferred Language: Irish Communication Ability: Effective Visual Impairment: No Limitations Law Firm Consultant Required: No Beliefs That Will Affect Care: None Current Living Situation: Alone Feels Safe at Home: Yes Assistive Devices: Glasses Review of Systems Review of Systems: All systems reviewed & are unremarkable except as noted in HPI & below Physical Exam Physical Exam: General: A&Ox3. NAD. Cooperative. HEENT: Atraumatic, normocephalic. Pupils equal and reactive to light. Visual acuity and hearing grossly intact. Pulm: CTAB A&P. -wheezes, -rales, -rhonchi. Symmetrical chest rise. No increased work of breathing. No respiratory distress. Cardiac: RRR, -mrg. Radial pulses intact and symmetrical. Abdominal: Focally tender at RUQ and LUQ, +murphys sign with radiation to the lo lower abdomen. No involuntary guarding, no rigidity. Extremities: Warm, dry. Sensation to soft touch intact to soft touch in hands and feet bilaterally. Fingernail Former strength, elbow flexion, ankle dorsiflexion/plantarflexion, hip flexion intact laterally without asymmetry. Patient does have some pain in abdomen on active hip flexion. Results & Data Results & Data ([facility]) Vital Signs (Past 12 Hours) Vital Signs Temp Pulse Pulse Resp BP BP Pulse Ox 07/24/21 05:17 92 H 18 141/81 H 98 07/24/21 03:30 36.3 C L 86 16 161/83 H PG Care Time/CCT Total # of Minutes Spent Total Time Spent with Patient: Total time spent is greater than 50% in coordination of care (as documented) at patient's floor/unit and/or counseling patient: Coding Level of Care Code INT OBSERVATION CARE 50M LVL 2 Diagnoses Abdominal pain R10.84 Abdominal location: generalized Diabetes mellitus type 2, uncontrolled E11.65 Anxiety with depression F41.8 Hypertension I10 Hypothyroid E03.9 Sleep apnea G47.30 (1) Abdominal pain Abdominal location: generalized Qualified Code(s): R10.84 - Generalized abdominal pain
--- NOTE | 2021-07-24 07:33 | CT Scan Report ---
ABDOMEN AND PELVIS CT WITH IV CONTRAST CT DOSE: 1836.31 mGy.cm HISTORY: Left lower quadrant pain. Recent colonoscopy. TECHNIQUE: Multiaxial CT images of the abdomen and pelvis were performed following the use of intrave nous contrast. A dose lowering technique was utilized adhering to the principles of ALARA. COMPARISON STUDY: None. FINDINGS: Bibasilar linear densities consistent with subsegmental atelectasis. No pneumoperitoneum. N o pneumatosis. The liver, spleen, adrenal glands, and kidneys are unremarkable. There is periportal e becky. Mild inflammatory change/fluid adjacent to the pancreatic head and proximal duodenum. The pancr eatic head appears slightly edematous. The gallbladder is also distended with mild pericholecystic in flammatory change. Normal caliber common bile duct. Trace fluid along the right paracolic gutter. The bladder is mildly thickened which may be due to underdistention. Small fat-containing periumbilical hernia is noted. Left retroaortic renal vein. There is a 4.7 cm uterine fibroid. An intrauterine adalberto ce appears in good position. No pelvic free fluid. No bowel wall thickening or obstruction. Normal ap pendix. IMPRESSION: 1. There is inflammatory change/edema within the right upper quadrant which surrounds the slightly ed ematous pancreatic head, duodenum, and distended gallbladder. The gallbladder wall appears slightly t hickened. Therefore, this could be secondary to an acute pancreatitis or acute cholecystitis. Clinica l correlation recommended. 2. No evidence for bowel obstruction. 3. The intrauterine device appears in good position. 4. Additional findings as described above. ACT 112: Negative or not required by law. Electronically signed by: Paramjit Diaz M.D. 07/24/2021 7:32 AM
--- NOTE | 2021-07-24 08:06 | Ultrasound Report ---
ABDOMINAL ULTRASOUND, RIGHT UPPER QUADRANT HISTORY: Right upper quadrant abdominal pain. Abnormal CT.. COMPARISON: Abdomen and pelvis CT 07/24/2021. FINDINGS: Pancreas: Mild heterogeneity within the pancreatic head. Liver: The liver is echogenic consistent with fatty change. Gallbladder: The gallbladder appears mildly distended. Gallbladder wall is borderline thickened measu ring 3 mm. Multiple gallstones are noted. No pericholecystic fluid. CBD: 7 mm. Right kidney: No hydronephrosis. IMPRESSION: 1. Mild heterogeneity of the pancreatic head. This could represent acute pancreatitis. Recommend ghanshyam elation with pancreatic enzymes 2. Mildly distended gallbladder with a borderline thickened gallbladder wall and multiple gallstones. An early acute cholecystitis is not excluded. Clinical correlation recommended. 3. Mildly dilated common bile duct measuring 7 mm. No evidence for choledocholithiasis. ACT 112: Negative or not required by law. Electronically signed by: Paramjit Diaz M.D. 07/24/2021 8:05 AM
[2021-07-24] MEDS ORDERED: ONDANSETRON INJ 2 MG/ML 2 ML VIAL IV PRN (09:08)
[2021-07-24] MEDS ORDERED: MoRPHine SULFATE 2 MG/ML CARP IV PRN (09:08)
[2021-07-24] MEDS ORDERED: INSULIN GLARGINE SOLOSTAR 100 UNITS/ML 3 ML PEN SC SCH (09:08)
[2021-07-24] MEDS ORDERED: GLUCAGON FOR INJ 1 MG VIAL SQ PRN (09:08)
[2021-07-24] MEDS ORDERED: CARBOHYDRATES FOR HYPOGLYCEMIA PO PRN (09:08)
[2021-07-24] MEDS ORDERED: DEXTROSE 50% 50 ML SYRINGE IV PRN (09:08)
[2021-07-24] MEDS ORDERED: GLUCOSE 40% GEL 15 GM TUBE PO PRN (09:08)
[2021-07-24] MEDS ORDERED: GLUCOSE 10 TABS/TUBE PO PRN (09:08)
[2021-07-24] MEDS ORDERED: PIPERACILL/TAZOBAC CONSULT ACTIVE PRN (09:08)
[2021-07-24] MEDS ORDERED: LEVONORGESTREL PV PRN (09:08)
[2021-07-24] MEDS ORDERED: PIPERACILLIN/TAZOBACTAM 3.375 GM in DEXTROSE 5% 100 ML IV ONE (09:45)
[2021-07-24] MEDS: LACTATED RINGER'S 1,000 ML IV SCH ×2 (10:08→15:54)
--- NOTE | 2021-07-24 10:19 | Pharmacy Report ---
Glycemic Ortho Sign Off Note - Date of Service July 24, 2021 - Scope Glycemic Pharmacist consulted for glycemic control and to write orders per [facility] inpatient glycemic control protocol. - Objective Accuchecks BSG (last 24hrs):: 07/24/21 07/24/21 04:06 09:50 Glucose 214 H POC Glucose 145 H - Assessment * Pt is maintained on oral antidiabeticagent[s]as anoutpatient with excellent control per recent A1c * Oral agents are not recommended for inpatient use d/t drug interactions, changing PO intake, and difficulty titrating for acute hyper/hypoglycemia. * Recommended regimen for inpatient use is SQ insulin * Low stress weight based insulin dosing appropriate since patient has minimal risk factors for insulin resistance (i.e. no steroids). * Appropriate to DC insulin and resume outpatient antidiabetic regimen at discharge * Goal is to maintain BSGs <200 mg/dl (ideally <150 mg/dl) to prevent post op complications - Plan For Inpatient Glycemic Control * Basal insulin * Not needed based on A1c, pre-op BSGs, and minimal risk factors for insulin resistance * Bolus insulin * Utilize low stress weight based NovoLog parameters per scale ACHS * Pharmacy has entered glycemic orders and is signing off of the glycemic consult. We will no longer be making adjustments to inpatient regimen. Please feel free to re-consult if needed. Thank you.
--- NOTE | 2021-07-24 12:06 | Surgery Consultation ---
Date of Consultation July 24, 2021 Assessment & Plan (1) Pancreatitis: WBC 16, bili 1.9, lipase 5000 GI to eval for MRCP/ERCP lap barb when her pancreatitis improves, possibly in 24-48 hours Supervising Physician Co-Signing Physician Notes as per Chevy herrera discussed with pt that will discuss with Dr Baird regarding possible excising the umbilical crater at same time as lap barb since she is having constant bloody drainage from area and this plan had been discussed with her in past History of Present Illness Attending Physician: Patel Vega MD History of Present Illness 55 y/o female woke up with upper abdominal pain morning, N/V x1. No previous pain, nausea or bloating. Nothing out of the ordinary for dinner on Monday. She did have colonoscopy on Monday and had been in contact with GI office. Was seen in ED overnight and admitted for pancreatitis. Pain improved after morphine but has some epigastric pain as well as LUQ pain and some radiating to RUQ. No further N/V. Has some mid to lower back pain that is new. Has had some flatus but maybe less than usual. Umbilical hernia repair by Dr. Baird without mesh but continues to have some frequent drainage from her umbilicus. Allergies Allergy/AdvReac Type Severity Reaction Status Date / Time miconazole Allergy Intermediate burning Verified 07/24/21 07:43 skin cleanser combination Allergy Intermediate BURNING/AMRIT Verified 07/24/21 07:43 no.17 H [From Monistat 3] Home Medications Medication Instructions Recorded Confirmed Type aspirin 81 mg tablet,delayed 81 mg PO QPM 03/26/18 07/24/21 History release cholecalciferol (vitamin D3) 50 2,000 unit PO QPM 03/26/18 07/24/21 History mcg (2,000 unit) capsule (Vitamin D3) cyanocobalamin (vitamin B-12) 1,000 mcg PO QPM 03/26/18 07/24/21 History 1,000 mcg tablet,extended release (Vitamin B-12 ER) glucosamine-chondroitin 250 mg-200 1 tab PO QPM 03/26/18 07/24/21 History mg tablet (Osteo Bi-Flex) levonorgestrel 20 mcg/24 hours (7 1 device IU CONT ea 08/21/19 03/12/22 History yrs) 52 mg intrauterine device (Mirena) meclizine 25 mg tablet 25 mg PO TID PRN #20 tab 07/31/19 07/24/21 Rx BD Ultra-Fine Sushila Pen Needle 32 #100 ea NS 06/29/20 07/15/21 Rx gauge x 5/32" (pen needle, diabetic) clobetasol 0.05 % topical foam 1 applic TOP DAILY #50 gm 06/30/20 07/24/21 Rx lisinopril 2.5 mg tablet 2.5 mg PO QPM #90 tab 08/31/20 07/24/21 Rx Victoza 3-Nikos 0.6 mg/0.1 mL (18 1.8 mg SUBCUT QPM 90 Days #27 ml NS 10/13/20 07/24/21 Rx mg/3 mL) subcutaneous pen injector (liraglutide) metformin 500 mg tablet,extended 1,000 mg PO BIDM #360 tab 12/07/20 07/24/21 Rx release 24 hr atorvastatin 20 mg tablet 20 mg PO QPM #30 tab 03/09/21 07/24/21 Rx acetazolamide 500 mg 500 mg PO HS cap 04/02/21 07/24/21 History capsule,extended release paroxetine HCl 10 mg tablet 10 mg PO QPM #90 tab 04/14/21 07/24/21 Rx levothyroxine 50 mcg tablet 50 mcg PO QAM 07/16/21 07/24/21 History ibuprofen 200 mg tablet (Motrin IB) 200 mg PO Q6H PRN 07/24/21 07/24/21 History Patient History Medical History Anxiety and depression Arthritis Diabetes mellitus, type 2 History of uterine fibroid Hx of vertigo Hypothyroidism Irregular heart beat FOLLOWED BY DR. GARCIA Leg edema Neuropathy Non-healing surgical wound FLUID FROM UMBILICAL HERNIA>SMALL LEAKAGE OCCURS Sleep apnea CPAP Surgical History Difficult airway for intubation Glidescope #3 04/2018 hernia repair. History of colonoscopy History of esophagogastroduodenoscopy (EGD) History of mandibular surgery History of tooth extraction History of ventral hernia repair Hx of abdominal surgery Umbilical exploration, excision of suture granuloma, closure of superficial fistula Hx of carpal tunnel repair LEFT Family History Mother Ovarian cancer Stroke Family/Other Diabetes Father FH: deafness or hearing loss Cardiac disorder Hypertension Family/Other Breast cancer Unknown Allergies Environmental allergies Family/Other Asthma Grandfather (Maternal) Family history of diabetes mellitus Other No family history of adverse response to anesthesia Social History Smoking Status: Never smoker Cigarettes Per Day: 0; Second Hand Exposure: No; Do You Dip or Chew Tobacco: No; Hx Alcohol Use: No Hx Substance Use: No Preferred Language: Chinese Communication Ability: Effective Visual Impairment: No Limitations Payment Processor Required: No Beliefs That Will Affect Care: None Current Living Situation: Alone Other Information That Helps Us Care for You: No Feels Safe at Home: Yes Safety Concerns: Feels Safe At This Time Assistive Devices: Glasses and Oxygen - at Night Review of Systems Constitutional: no fever, no chills and no anorexia Gastrointestinal: + abdominal pain, + nausea and + vomiting; no early satiety, no heartburn and no change in bowel habits Physical Exam Constitutional: no acute distress Respiratory: normal respiratory effort Cardiovascular: Rate/Rhythm: regular rate Gastrointestinal (Abdomen): Inspection/Auscultation: abdomen not distended Percussion/Palpation: + abdomen tender (mild epigastric) and abdomen soft; no guarding Results & Data ([facility]) Vital Signs (Past 12 Hours) Vital Signs Temp Pulse Pulse Resp BP BP Pulse Ox 07/24/21 09:20 37.3 C 98 H 16 138/76 16 L 07/24/21 08:26 36.8 C 78 20 112/66 98 07/24/21 06:30 93 H 18 149/70 H 94 07/24/21 05:17 92 H 18 141/81 H 98 07/24/21 03:30 36.3 C L 86 16 161/83 H PG Care Time/CCT Total # of Minutes Spent Total Time Spent with Patient: Total time spent is greater than 50% in coordination of care (as documented) at patient's floor/unit and/or counseling patient: Coding Level of Care Code 04621 Inpt Consult Level 3 Diagnoses Pancreatitis K85.90 Acute pancreatitis complication: unspecified Chronicity: acute Pancreatitis type: unspecified pancreatitis type (1) Pancreatitis Acute pancreatitis complication: unspecified Chronicity: acute Pancreatitis type: unspecified pancreatitis type Qualified Code(s): K85.90 - Acute pancreatitis without necrosis or infection, unspecified
[2021-07-24] MEDS: INSULIN ASPART PER UNIT SC SCH ×4 (12:38→21:19)
[2021-07-24] MEDS ORDERED: D5W AND LACTATED RINGERS 1,000 ML IV SCH (12:45)
--- NOTE | 2021-07-24 13:59 | Hospitalist Progress Note ---
Date of Service July 24, 2021 Assessment & Plan (1) Pancreatitis: Plan: 55-year-old white female presented with abdominal pain X 2 days suspect Gallstone Pancreatitis WBC count elevated at 16.37. Otherwise afebrile and hemodynamically stable Lipase: 5196 Elevated LFTs (TB: 1.9, AST: 218, ALT: 280) CT scan of the abdomen and pelvis shows edema of the pancreatic head with a distended gallbladder. Gallbladder wall thickened with no ductal dilatation Right upper quadrant ultrasound shows distended and thickened gallbladder wall with evidence of cholecystitis and concern for early cholecystitis. Mildly dilated common bile duct Consult GI for ERCPappreciate assistance Consult general surgery for cholecystectomyappreciate assistance Patient will be kept n.p.o. for now Continue IV hydration Continue IV pain control and IV antiemetics as needed (2) Elevated LFTs: Plan: Likely secondary to gallstone pancreatitis and likely choledocholithiasissee above (3) Diabetes mellitus type 2, uncontrolled: Plan: Type 2 diabetes Hold home metformin Hold home Victoza Blood sugars being monitored and corrected via sliding scale in addition to utilization of basal insulin (4) Dyslipidemia: Plan: Hold statin given abnormal LFTs as outlined above (5) Anxiety with depression: Plan: - Continue home paroxetine (6) Hypertension: Plan: Hypertension Continue home lisinopril 2.5 mg nightly Hold aspirin due to likely need for surgical intervention (7) Hypothyroid: Plan: Hypothyroidism Continue home Synthroid 50 mcg p.o. every morning (8) Sleep apnea: Plan: CPAP nightly as needed Plan: plan of care to be D/W Dr. Arriaza. Further orders as warranted Admission and Anticipated Discharge Date Admission Date: July 24, 2021 Supervising Physician Co-Signing Physician Notes chart reviewed, case d/w Dino Gaffney PAC - agree w above Subjective Patient seen on daily rounds today. Hospitalized with abdominal pain. Work-up consistent with gallstone pancreatitis and concern for developing cholecystitis. Reports ongoing abdominal pain X 2 days. Constant. Waxes and wanes in terms of its severity. Worse when supine. Denies F/C Review of Systems Review of Systems: All systems reviewed and are unremarkable except as noted in HPI and below Denies fevers, chills, headache, nasal congestion, sore throat, cough, chest pain, shortness of breath, palpitations, orthopnea, PND, nausea, vomiting, diarrhea, constipation, dysuria, hematuria, frequency, back pain, joint pain or swelling, easy bruising or bleeding, skin lesions or rashes. Physical Exam Physical Exam: General: Resting comfortably in her hospital bed. Does not appear ill or toxic. NAD. HEENT: Head is AT/NC. Buccal mucosa is moist and pink Neck: No JVD. Negative hepatojugular reflex Cardiac: Heart sounds distant likely due to habitus. No M/G/R Lungs: CTA without W/R/R Abdomen: Normoactive X4. No evidence of Fong Broderick or [place] sign. Abdomen is soft with right upper quadrant tenderness. Positive Roldan sign Extremities: + Adiposity without true pitting edema Neuro: Cranial nerves II through XII are grossly intact. No focal neuro deficits Skin: No obvious skin lesions or rashes Psych: Appropriate affect. Pleasant and cooperative Results & Data Results & Data ([facility]) Vital Signs (Past 12 Hours) Vital Signs Temp Pulse Pulse Resp BP BP Pulse Ox 07/24/21 09:20 37.3 C 98 H 16 138/76 16 L 07/24/21 08:26 36.8 C 78 20 112/66 98 07/24/21 06:30 93 H 18 149/70 H 94 07/24/21 05:17 92 H 18 141/81 H 98 07/24/21 03:30 36.3 C L 86 16 161/83 H Laboratory Results 07/24/21 04:06 07/24/21 04:06 Lipase: 5196 Total bilirubin: 1.9 AST: 218 ALT: 280 PG Care Time/CCT Total # of Minutes Spent Total Time Spent with Patient: Total time spent is greater than 50% in coordination of care (as documented) at patient's floor/unit and/or counseling patient: Coding Level of Care Code None Diagnoses Diabetes mellitus type 2, uncontrolled E11.65 Anxiety with depression F41.8 Hypertension I10 Hypothyroid E03.9 Sleep apnea G47.30 Pancreatitis K85.90 Acute pancreatitis complication: unspecified Chronicity: acute Pancreatitis type: unspecified pancreatitis type Elevated LFTs R79.89 Dyslipidemia E78.5 (1) Pancreatitis Acute pancreatitis complication: unspecified Chronicity: acute Pancreatitis type: unspecified pancreatitis type Qualified Code(s): K85.90 - Acute pancreatitis without necrosis or infection, unspecified
--- NOTE | 2021-07-24 15:17 | Gastrointestinal Consultation ---
Date of Consultation July 24, 2021 Supervising Physician Co-Signing Physician Notes 55 yo fm admitted with abd pain, findings concerning for ? gallstone pancreatitis given lft rise and lipase elevation, however no cbd dilation noted on imaging or findings of choledocholithiasis. She's hemodnyamically stable, mentating well, no abx. Would consider MRCP. ERCP coverage is not available until Monday so if she become cholangitic in the in timer she would require transfer to a tertiary medical center prior to Monday. Pending results of the MRCP, possible ercp on monday if indicated. Other option if plans for surgery could be to consider an ioc during surgery given no current findings of cbd dilation or choledocholiathiasis or cholangitis. History of Present Illness Reason for Consultation: Abdominal pain Requesting Physician: Dr. Vega Attending Physician: Frankie Arriaza DO History of Present Illness 55 yo fm admitted with abdominal pain. Work-up thus far showing pancreatitis based on pain, imaging c/w pancreatitis and lipase elevation. Also with noted elevation in ast/alt/alk phos and tb to 1.9, also with an elevated wbc count but hemodynamically stable and gallbladder distension with concerns for stones. Recent colonoscopy this past week with polyp removal by Dr. Quiroz. No active gi bleeding reported to me. She is passing gas, not had regular bm's since her colonoscopy. No prior episodes of pancreatitis- no use of new medications until she got abx this morning, no supplements, no recent ethanol use. Pmhx: hyperlipidemia, type 2 dm, Pshx: none Medications as below All: None Soc hx: lives alone, no tobacco, no ethanol, no marijauna Allergies Allergy/AdvReac Type Severity Reaction Status Date / Time miconazole Allergy Intermediate burning Verified 07/24/21 07:43 skin cleanser combination Allergy Intermediate BURNING/AMRIT Verified 07/24/21 07:43 no.17 H [From Monistat 3] Home Medications Medication Instructions Recorded Confirmed Type aspirin 81 mg tablet,delayed 81 mg PO QPM 03/26/18 07/24/21 History release cholecalciferol (vitamin D3) 50 2,000 unit PO QPM 03/26/18 07/24/21 History mcg (2,000 unit) capsule (Vitamin D3) cyanocobalamin (vitamin B-12) 1,000 mcg PO QPM 03/26/18 07/24/21 History 1,000 mcg tablet,extended release (Vitamin B-12 ER) glucosamine-chondroitin 250 mg-200 1 tab PO QPM 03/26/18 07/24/21 History mg tablet (Osteo Bi-Flex) levonorgestrel 20 mcg/24 hours (7 1 device IU CONT ea 01/02/19 07/24/21 History yrs) 52 mg intrauterine device (Mirena) meclizine 25 mg tablet 25 mg PO TID PRN #20 tab 07/31/19 07/24/21 Rx BD Ultra-Fine Sushila Pen Needle 32 #100 ea NS 06/29/20 07/15/21 Rx gauge x 5/32" (pen needle, diabetic) clobetasol 0.05 % topical foam 1 applic TOP DAILY #50 gm 06/30/20 07/24/21 Rx lisinopril 2.5 mg tablet 2.5 mg PO QPM #90 tab 08/31/20 07/24/21 Rx Victoza 3-Nikos 0.6 mg/0.1 mL (18 1.8 mg SUBCUT QPM 90 Days #27 ml NS 10/13/20 07/24/21 Rx mg/3 mL) subcutaneous pen injector (liraglutide) metformin 500 mg tablet,extended 1,000 mg PO BIDM #360 tab 12/07/20 07/24/21 Rx release 24 hr atorvastatin 20 mg tablet 20 mg PO QPM #30 tab 03/09/21 07/24/21 Rx acetazolamide 500 mg 500 mg PO HS cap 04/02/21 07/24/21 History capsule,extended release paroxetine HCl 10 mg tablet 10 mg PO QPM #90 tab 04/14/21 07/24/21 Rx levothyroxine 50 mcg tablet 50 mcg PO QAM 07/16/21 07/24/21 History ibuprofen 200 mg tablet (Motrin IB) 200 mg PO Q6H PRN 07/24/21 07/24/21 History Patient History Medical History Anxiety and depression Arthritis Diabetes mellitus, type 2 History of uterine fibroid Hx of vertigo Hypothyroidism Irregular heart beat FOLLOWED BY DR. GARCIA Leg edema Neuropathy Non-healing surgical wound FLUID FROM UMBILICAL HERNIA>SMALL LEAKAGE OCCURS Sleep apnea CPAP Surgical History Difficult airway for intubation Glidescope #3 04/2018 hernia repair. History of colonoscopy History of esophagogastroduodenoscopy (EGD) History of mandibular surgery History of tooth extraction History of ventral hernia repair Hx of abdominal surgery Umbilical exploration, excision of suture granuloma, closure of superficial fistula Hx of carpal tunnel repair LEFT Family History Mother Ovarian cancer Stroke Family/Other Diabetes Father FH: deafness or hearing loss Cardiac disorder Hypertension Family/Other Breast cancer Unknown Allergies Environmental allergies Family/Other Asthma Grandfather (Maternal) Family history of diabetes mellitus Other No family history of adverse response to anesthesia Social History Smoking Status: Never smoker Cigarettes Per Day: 0; Second Hand Exposure: No; Do You Dip or Chew Tobacco: No; Hx Alcohol Use: No Hx Substance Use: No Preferred Language: Yi Communication Ability: Effective Visual Impairment: No Limitations Broom Handle Dipper Required: No Beliefs That Will Affect Care: None Current Living Situation: Alone Other Information That Helps Us Care for You: No Feels Safe at Home: Yes Safety Concerns: Feels Safe At This Time Assistive Devices: Glasses and Oxygen - at Night Review of Systems Review of Systems: All systems reviewed & are unremarkable except as noted in HPI & below Physical Exam Physical Exam: Obese fm in nad, wearing a mask in her room, in no current distress Constitutional: WD/WN, vitals as above Eyes: PERRL, conjunctivae normal, anicteric sclerae Respiratory: normal respiratory effort, lungs clear to auscultation Gastrointestinal (Abdomen): normal bowel sounds, soft, nontender, no hepatosplenomegaly Skin: no rashes, warm and dry Results & Data ([facility]) Vital Signs (Past 12 Hours) Vital Signs Temp Pulse Pulse Resp BP BP Pulse Ox 07/24/21 14:37 37.0 C 101 H 16 121/75 96 07/24/21 09:20 37.3 C 98 H 16 138/76 16 L 07/24/21 08:26 36.8 C 78 20 112/66 98 07/24/21 06:30 93 H 18 149/70 H 94 07/24/21 05:17 92 H 18 141/81 H 98 07/24/21 03:30 36.3 C L 86 16 161/83 H Laboratory Results Labs reviewed significant for wbc count elevation TB 1.9, ast/alt/alk phos elevation Diagnostic Findings Recent colon with polyp removed CT scan of abdomen and also abd roxane reviewed- gb distension, polyps, cbd appears normal on both imaging studies
[2021-07-24] MEDS: PATIENT'S HEIGHT AND/OR WEIGHT NEEDED SCH ×2 (15:42→15:43)
[2021-07-24] MEDS: PIPERACILLIN/TAZOBACTAM 4.5 GM in DEXTROSE 5% 100 ML IV SCH (17:18)
[2021-07-24] MEDS: HYDROmorphone INJ 0.5 MG/0.5 ML SYR IV PRN (17:43)
[2021-07-24] MEDS ORDERED: ATORVASTATIN 20 MG TAB PO SCH (21:00)
[2021-07-24] MEDS: INSULIN GLARGINE SOLOSTAR 100 UNITS/ML 3 ML PEN SC SCH (21:18)
[2021-07-24] MEDS: PARoxetine HCL 10 MG TAB PO SCH (21:21)
[2021-07-25] MEDS: PIPERACILLIN/TAZOBACTAM 4.5 GM in DEXTROSE 5% 100 ML IV SCH ×4 (00:44→23:00)
[2021-07-25] MEDS: INSULIN ASPART PER UNIT SC SCH ×4 (00:56→18:31)
[2021-07-25] MEDS: LEVOTHYROXINE SODIUM 50 MCG TABLET PO SCH (05:51)
[2021-07-25 06:06] LABS: Basophils # (auto) 0.02 K/uL (0-0.2); Basophils % (auto) 0.1 %; Eosinophils # (auto) 0.07 K/uL (0-0.5); Eosinophils % (auto) 0.5 %; Hematocrit (blood only) 41.6 % (37-47); Immature Granulocytes # (auto) 0.05 K/uL (0.00-0.02); Immature Granulocytes % (auto) 0.3 %; Lymphocytes % (auto) 8.5 %; Mean Corpuscular Hemoglobin 31.9 pg (25-34); Mean Corpuscular Hgb Conc 33.7 g/dL (32-36); Mean Corpuscular Volume 94.8 fL (80-100); Mean Platelet Volume 8.9 fL (7.4-10.4); Monocytes # (auto) 1.35 K/uL (0.11-0.59); Monocytes % (auto) 8.9 %; Neutrophils # (auto) 12.42 K/uL (1.4-6.5); Neutrophils % (auto) 81.7 %; Platelet Count 342 K/uL (130-400); RDW Standard Deviation 45.2 fL (36.4-46.3); Red Blood Count 4.39 M/uL (4.2-5.4); White Blood Count 15.21 K/uL (4.8-10.8)
[2021-07-25 06:28] LABS: Albumin Globulin Ratio 1.4 (0.9-2); Albumin Level 3.8 gm/dl (3.4-5.0); BUN Creatinine Ratio 9.8 (10-20); Bilirubin,Total 1.8 mg/dl (0.2-1.0); Calcium 8.8 mg/dl (8.5-10.1); Est GFR (African American) 125.5 ml/min; Est GFR (Non-African American) 108.3 ml/min; Globulin 2.7 gm/dl (2.5-4.0); Magnesium 1.6 mg/dl (1.7-2.4); Potassium 3.8 mmol/L (3.5-5.1); Total Protein 6.5 gm/dl (6.0-8.3)
[2021-07-25] MEDS ORDERED: ENOXAPARIN INJ 40 MG/0.4 ML SYR SQ SCH (07:00)
[2021-07-25] MEDS ORDERED: ACETAMINOPHEN 1,000 MG/100 ML VIAL IV PRN (07:41)
--- NOTE | 2021-07-25 09:25 | Hospitalist Progress Note ---
Date of Service July 25, 2021 Assessment & Plan (1) Pancreatitis: Plan: 55-year-old white female presented with abdominal pain X 2 days suspect Gallstone Pancreatitis on admission: WBC count elevated at 16.37 but no fever and HD stable. Still with leukocytosis, now with a fever and mild tachycardic (early sepsis syndrome) Lipase: initially 5196-- now 379 with bowel rest Elevated LFTs (TB: 1.9, AST: 218, ALT: 280)--> today at 1.8/107/213 CT scan of the abdomen and pelvis shows edema of the pancreatic head with a distended gallbladder. Gallbladder wall thickened with no ductal dilatation Right upper quadrant ultrasound shows distended and thickened gallbladder wall with evidence of cholecystitis and concern for early cholecystitis. Mildly dilated common bile duct GI consulted for ERCPrecommending MRCP first (order placed and pending)--appreciate assistance Consult general surgery for cholecystectomy awaiting +/- ERPC. appreciate assistance Patient will be kept n.p.o. for now Continue IV hydration Continue IV pain control and IV antiemetics as needed At this point, would be inclined to try clear liquids pending results of MRCP (2) Abdominal pain: Plan: - see above. - suspect acute cholecystitis +/- choledocholithiasis, +/- developing cholangitis - pt now with fever and mild tachycardia but otherwise, BP normal. no jaundice. (3) Elevated LFTs: Plan: Likely secondary to gallstone pancreatitis and likely choledocholithiasissee above (4) Diabetes mellitus type 2, uncontrolled: Plan: Type 2 diabetes Hold home metformin Hold home Victoza Blood sugars being monitored and corrected via sliding scale in addition to utilization of basal insulin (5) Dyslipidemia: Plan: Hold statin given abnormal LFTs as outlined above (6) Anxiety with depression: Plan: - Continue home paroxetine (7) Hypertension: Plan: Hypertension Continue home lisinopril 2.5 mg nightly Hold aspirin due to likely need for surgical intervention (8) Hypothyroid: Plan: Hypothyroidism Continue home Synthroid 50 mcg p.o. every morning (9) Sleep apnea: Plan: CPAP nightly as needed Plan: change to full admission. transfer to /[facility] given mild tachycardia and fever (? early cholangitis/sepsis syndrome) of care to be D/W Dr. Jerry. Further orders as warranted Admission and Anticipated Discharge Date Admission Date: July 24, 2021 Subjective Patient seen on daily rounds today. Overall feeling somewhat better compared to yesterday but still with abdominal discomfort. Worse when she moves. Is now having fevers and chills. T-max overnight 101.4 F. Slightly tachycardic at 104 but otherwise hemodynamically stable. Has been seen by both GI and general surgery. GI recommending MRCP to determine need for ERCP. General surgery ascencion mmending cholecystectomy +/- ERCP Review of Systems Review of Systems: All systems reviewed and are unremarkable except as noted in HPI and below Denies headache, nasal congestion, sore throat, cough, chest pain, shortness of breath, palpitations, orthopnea, PND, nausea, vomiting, diarrhea, constipation, dysuria, hematuria, frequency, back pain, joint pain or swelling, easy bruising or bleeding, skin lesions or rashes. Physical Exam Physical Exam: General: Resting comfortably in her hospital bed. Does not appear ill or toxic. NAD. HEENT: Head is AT/NC. Buccal mucosa is moist and pink Neck: No JVD. Negative hepatojugular reflex Cardiac: Heart sounds distant likely due to habitus. No M/G/R Lungs: CTA without W/R/R Abdomen: Normoactive X4. No evidence of Fong Broderick or [place] sign. Abdomen is soft with exquisite right upper quadrant tenderness. Positive Roldan sign Extremities: + Adiposity without true pitting edema Neuro: Cranial nerves II through XII are grossly intact. No focal neuro de ficits Skin: No obvious skin lesions or rashes Psych: Appropriate affect. Pleasant and cooperative Results & Data Results & Data ([facility]) Vital Signs (Past 12 Hours) Vital Signs Temp Pulse Resp BP Pulse Ox 07/25/21 07:37 38.3 C H 100 H 16 135/76 91 07/24/21 22:12 38.6 C H 104 H 20 119/64 93 Laboratory Results 07/25/21 05:39 07/25/21 05:39 Total bilirubin: 1.8 AST: 107 ALT: 213 Lipase: 379 PG Care Time/CCT Total # of Minutes Spent Total Time Spent with Patient: Total time spent is greater than 50% in coordination of care (as documented) at patient's floor/unit and/or counseling patient: Coding Level of Care Code 53595 Subseq Hosp Care Lvl 3 Diagnoses Pancreatitis K85.90 Acute pancreatitis complication: unspecified Chronicity: acute Pancreatitis type: unspecified pancreatitis type Elevated LFTs R79.89 Diabetes mellitus type 2, uncontrolled E11.65 Dyslipidemia E78.5 Anxiety with depression F41.8 Hypertension I10 Hypothyroid E03.9 Sleep apnea G47.30 Abdominal pain R10.84 Abdominal location: generalized (1) Pancreatitis Acute pancreatitis complication: unspecified Chronicity: acute Pancreatitis type: unspecified pancreatitis type Qualified Code(s): K85.90 - Acute pancreatitis without necrosis or infection, unspecified (2) Abdominal pain Abdominal location: generalized Qualified Code(s): R10.84 - Generalized abdominal pain
--- NOTE | 2021-07-25 09:30 | Surgery Progress Note ---
Date of Service July 25, 2021 Assessment & Plan (1) Pancreatitis: Plan: Patient here w/ presumed gallstone pancreatitis Temp 38.3 this AM Labs show WBC 15 (16), LFT's Tb: 1.8(1.9, AST 107, ALT: 213, AlkP:183, Lipase 379(5000) Patient tender to exam in RUQ/epigastric region Planning for MRCP today. GI following NPO at midnight pending any procedures tomorrow Pt seen/examined with Dr. Duckworth Admission and Anticipated Discharge Date Admission Date: July 24, 2021 Subjective Patient says she is feeling a little bit better. Passing flatus. Physical Exam Physical Exam: awake/alert Gastrointestinal (Abdomen): Percussion/Palpation: + abdomen tender (in RUQ/epigastric region) Results & Data ([facility]) Vital Signs (Past 12 Hours) Vital Signs Temp Pulse Resp BP Pulse Ox 07/25/21 07:37 38.3 C H 100 H 16 135/76 91 07/24/21 22:12 38.6 C H 104 H 20 119/64 93 PG Care Time/CCT Total # of Minutes Spent Total Time Spent with Patient: Total time spent is greater than 50% in coordination of care (as documented) at patient's floor/unit and/or counseling patient: Coding Level of Care Code 34329 Subseq Hosp Care Lvl 1 Diagnoses Pancreatitis K85.90 Acute pancreatitis complication: unspecified Chronicity: acute Pancreatitis type: unspecified pancreatitis type (1) Pancreatitis Acute pancreatitis complication: unspecified Chronicity: acute Pancreatitis type: unspecified pancreatitis type Qualified Code(s): K85.90 - Acute cordova creatitis without necrosis or infection, unspecified
[2021-07-25] MEDS: HYDROmorphone INJ 0.5 MG/0.5 ML SYR IV PRN ×2 (12:40→20:34)
--- NOTE | 2021-07-25 13:11 | Gastroenterology Progress Note ---
Date of Service July 25, 2021 Assessment & Plan Admission and Anticipated Discharge Date Admission Date: July 25, 2021 Supervising Physician Co-Signing Physician Notes Pending MRCP results, ERCP if indicated can be coordinated. Subjective Feeling better regarding the pain Had her MRCP - results pending Review of Systems Review of Systems: All systems reviewed & are unremarkable except as noted in HPI & below Physical Exam Physical Exam: Obese fm in nad Respiratory: normal respiratory effort, lungs clear to auscultation Gastrointestinal (Abdomen): unchanged from yesterday Results & Data ([facility]) Vital Signs (Past 12 Hours) Vital Signs Temp Pulse Resp BP Pulse Ox 07/25/21 12:26 37.3 C 97 H 18 124/72 91 07/25/21 07:37 38.3 C H 100 H 16 135/76 91 Laboratory Results labs reviewed Diagnostic Findings MRCP results pending
--- NOTE | 2021-07-25 14:38 | Magnetic Resonance Report ---
MR MRCP HISTORY: 55 years-old Female ?choledocholithiasis acute right upper quadrant abdominal pain COMPARISON: CT abdomen and pelvis 07/24/2021 TECHNIQUE: MRCP was obtained without the use of IV contrast according to institutional protocol. FINDINGS: Trace pleural and pericardial effusions. Cardiomegaly. Probable bibasilar atelectasis. There is decre ased distention of the gallbladder compared to the prior study. There is decreased gallbladder wall t hickening from comparison with associated cholelithiasis. Mild interstitial edema of the pancreatic h ead. No acute peripancreatic fluid collection or pancreatic ductal dilation. The MRCP images are edwin on degraded. The common and intrahepatic biliary ducts appear to be normal in caliber. No choledochol ithiasis identified. The common bile duct measures up to 3-4 mm transversely. There is decreased wall thickening of the duodenum compared to prior study. Unremarkable soft tissues. IMPRESSION: 1. Mild interstitial edema of the pancreatic head redemonstrated suggestive of mild acute pancreatiti s. No pancreatic ductal dilation. 2. Cholelithiasis with mild gallbladder wall thickening and decreased gallbladder distention compared to yesterday's study. Follow-up recommended to exclude acute cholecystitis. 3. No biliary ductal dilation or choledocholithiasis identified. 4. Trace pericardial and pleural effusions. ACT 112: Negative or not required by law. The above report was generated using voice recognition software. It may contain grammatical, syntax o r spelling errors. Electronically signed by: Tremaine Balbuena M.D. 07/25/2021 2:36 PM
[2021-07-25] MEDS: ACETAMINOPHEN 325 MG TAB PO PRN (18:38)
[2021-07-25] MEDS: PARoxetine HCL 10 MG TAB PO SCH (20:26)
[2021-07-25] MEDS: lisinopril 2.5 MG TAB PO SCH (20:26)
[2021-07-25] MEDS: acetaZOLAMIDE 500 MG CAPCR PO SCH (20:26)
[2021-07-25] MEDS: INSULIN GLARGINE SOLOSTAR 100 UNITS/ML 3 ML PEN SC SCH (20:27)
[2021-07-25] MEDS ORDERED: Nursing to Pharmacy Communication SCH (20:30)
[2021-07-25] MEDS ORDERED: ASPIRIN 81 MG ECTAB PO SCH (21:00)
--- NOTE | 2021-07-25 21:46 | Communication Note ---
Date of Service: July 25, 2021 Is a 55-year-old female who was signed out to me by the dayshift team with concern for possible gallstone pancreatitis. They are awaiting results of jennifer ent's MRCP.Patient's MRCP was completed which showed patient had some interstitial edema of her pancreatic head suggestive of acute pancreatitis. MRCP also showed cholelithiasis with mild gallbladder wall thickening. No biliary ductal dilatation. No choledocholithiasis was identified. I visited with the patient at bedside and she said that she was feeling well. She was noted to be febrile with a temperature of 38.6. Her pulse was 103 and regular. Patient did have some pain with palpation of the right upper quadrant. Due to the MRCP findings we will tentatively plan for a laparoscopic, possible open cholecystectomy tomorrow. I have notified the clinical coordinator and placed her on the operating room schedule. Patient is n.p.o. at the present time. She was not receiving any intravenous fluids so I have ordered lactated Ringer's at 100 cc/h to be administered starting at this time.
[2021-07-25] MEDS: LACTATED RINGER'S 1,000 ML IV SCH (21:48)
[2021-07-26] MEDS: INSULIN ASPART PER UNIT SC SCH ×5 (00:10→20:32)
[2021-07-26] MEDS: LEVOTHYROXINE SODIUM 50 MCG TABLET PO SCH (05:56)
[2021-07-26 06:11] LABS: Basophils # (auto) 0.04 K/uL (0-0.2); Basophils % (auto) 0.3 %; Eosinophils # (auto) 0.33 K/uL (0-0.5); Eosinophils % (auto) 2.1 %; Hematocrit (blood only) 39.6 % (37-47); Hemoglobin 13.2 g/dL (12.0-16.0); Immature Granulocytes # (auto) 0.04 K/uL (0.00-0.02); Immature Granulocytes % (auto) 0.3 %; Lymphocytes # (auto) 1.31 K/uL (1.2-3.4); Lymphocytes % (auto) 8.3 %; Mean Corpuscular Hemoglobin 31.4 pg (25-34); Mean Corpuscular Hgb Conc 33.3 g/dL (32-36); Mean Corpuscular Volume 94.3 fL (80-100); Mean Platelet Volume 8.7 fL (7.4-10.4); Monocytes # (auto) 1.17 K/uL (0.11-0.59); Monocytes % (auto) 7.4 %; Neutrophils # (auto) 12.96 K/uL (1.4-6.5); Neutrophils % (auto) 81.6 %; Platelet Count 320 K/uL (130-400); RDW Standard Deviation 45.1 fL (36.4-46.3); White Blood Count 15.85 K/uL (4.8-10.8)
[2021-07-26 06:35] LABS: Albumin Globulin Ratio 1.3 (0.9-2); Albumin Level 3.6 gm/dl (3.4-5.0); BUN Creatinine Ratio 11.5 (10-20); Bilirubin,Total 1.2 mg/dl (0.2-1.0); Calcium 7.9 mg/dl (8.5-10.1); Creatinine Clr Calc Pharmacy 145.3 ml/min; Est GFR (African American) 123.8 ml/min; Est GFR (Non-African American) 106.8 ml/min; Globulin 2.7 gm/dl (2.5-4.0); Magnesium 1.7 mg/dl (1.7-2.4); Potassium 3.7 mmol/L (3.5-5.1); Total Protein 6.3 gm/dl (6.0-8.3)
--- NOTE | 2021-07-26 06:38 | Surgery Progress Note ---
Date of Service July 26, 2021 Assessment & Plan (1) Pancreatitis: Plan: 07/26/2021 MRCP yesterday negative for choledocholithiasis We will proceed with laparoscopic cholecystectomy intraoperative cholangiogram possible excision of the umbilical area later today Lab noted Risk and complication were explained to the patient including bleeding infection converting to an open procedure and she would like to proceed accordingly All question answered Will sign permit when she is in the preop area Patient here w/ presumed gallstone pancreatitis Temp 38.3 this AM Labs show WBC 15 (16), LFT's Tb: 1.8(1.9, AST 107, ALT: 213, AlkP:183, Lipase 379(5000) Patient tender to exam in RUQ/epigastric region Planning for MRCP today. GI following NPO at midnight pending any procedures tomorrow Pt seen/examined with Dr. Duckworth Admission and Anticipated Discharge Date Admission Date: July 25, 2021 Subjective No major changes since yesterday denies any nausea is passing flatus Physical Exam Physical Exam: Alert comfortable laying in bed in no distress Abdomen soft minimal right upper quadrant guarding Results & Data ([facility]) Vital Signs (Past 12 Hours) Vital Signs Temp Pulse Pulse Resp BP Pulse Ox 07/26/21 04:14 117/72 07/26/21 03:40 37.3 C 72 20 94/48 L 93 07/25/21 23:33 82 07/25/21 23:21 37.0 C 72 20 108/69 94 07/25/21 19:12 38.6 C H 103 H 20 112/66 96 PG Care Time/CCT Total # of Minutes Spent Total Time Spent with Patient: Total time spent is greater than 50% in coordination of care (as documented) at patient's floor/unit and/or counseling patient: Coding Level of Care Code 45570 Subseq Hosp Care Lvl 3 Diagnoses Pancreatitis K85.90 Acute pancreatitis complication: unspecified Chronicity: acute Pancreatitis type: unspecified pancreatitis type (1) Pancreatitis Acute pancreatitis complication: unspecified Chronicity: acute Pancreatitis type: unspecified pancreatitis type Qualified Code(s): K85.90 - Acute pancreatitis without necrosis or infection, unspecified
--- NOTE | 2021-07-26 07:20 | Hospitalist Progress Note ---
Date of Service July 26, 2021 Assessment & Plan (1) Pancreatitis: Plan: 55-year-old white female presented with abdominal pain X 2 days suspect Gallstone Pancreatitis on admission: WBC count elevated at 16.37 but initially without fever and HD stable. Lipase: initially 5196-- now 379 with bowel rest Elevated LFTs (TB: 1.9, AST: 218, ALT: 280)--> today at 1.8/107/213 CT of A/P:edema of the pancreatic head with a distended gallbladder. Gallbladder wall thickened with no ductal dilatation RUQ U/S: shows distended and thickened gallbladder wall with evidence of cholecystitis and concern for early cholecystitis. Mildly dilated common bile duct MRCP: Mild interstitial edema of the pancreatic head. Cholelithiasis with mild gallbladder wall thickening and decreased gallbladder distention. Cannot excl ude acute cholecystitis. No ductal dilatation or choledocholithiasis identified GI following- appreciate assistance General Surgery following- appreciate assistance --for cholecystectomy today with cholangiography. Patient likely passed stone/sludge as LFT's downtrending; however, can not exclude retained material within the duct despite normal MRCP otherwise, lipase has since normalized (2) Abdominal pain: Plan: - see above. - suspect acute cholecystitis +/- choledocholithiasis, +/- developing cholangitis - now with developing sepsis syndrome: --initially with leukocytosis of 16K. has remained elevated at 15K --now has development of fever (101.4) and mild tachycardia (low 100's). BP stable. --lactic acid normal at 0.7 - for cholecystectomy today with cholangiography but general surgery. appreciate assistance - has been empirically on Zosyn. continue this. (3) Elevated LFTs: Plan: - Likely 2/2 stone/sludge passed in ductal system. - LFT's downtrending - ? retained material within the duct - again, for cholangiography today (4) Diabetes mellitus type 2, uncontrolled: Plan: Type 2 diabetes Holding home metformin and Victoza Blood sugars being monitored and corrected via sliding scale in addition to utilization of basal insulin (5) Dyslipidemia: Plan: Hold statin given abnormal LFTs as outlined above (6) Anxiety with depression: Plan: - Continue home paroxetine (7) Hypertension: Plan: Hypertension Continue home lisinopril 2.5 mg nightly Hold aspirin due to need for surgical intervention (8) Hypothyroid: Plan: Hypothyroidism Continue home Synthroid 50 mcg p.o. every morning (9) Sleep apnea: Plan: CPAP nightly as needed Plan: plan of care d/w General Surgery regarding my concern for the need for a cholangiography. I was reassured that this was already discussed and planned. Admission and Anticipated Discharge Date Admission Date: July 25, 2021 Subjective Patient seen on daily rounds today. Last fever spike was last evening around 7 PM. T-max 101.48 F. Still complaining of abdominal pain. Is otherwise hemodynamically stable. White blood cell count remains elevated at 15.85. LFTs; although elevated, are downtrending. Did speak with general surgery and GI last evening regarding the early sepsis syndrome and my concerns. Patient is for cholecystectomy today in addition to cholangiography. Still reports abd pain (11/21). Denies N/V. Review of Systems Review of Systems: All systems reviewed and are unremarkable except as noted in HPI and below Denies fevers, chills, headache, nasal congestion, sore throat, cough, chest pain, shortness of breath, palpitations, orthopnea, PND, nausea, vomiting, diarrhea, constipation, dysuria, hematuria, frequency, back pain, joint pain or swelling, easy bruising or bleeding, skin lesions or rashes. Physical Exam Physical Exam: General: Resting comfortably in her hospital bed. Does not appear ill or toxic. NAD. HEENT: Head is AT/NC. Buccal mucosa is moist and pink Neck: No JVD. Negative hepatojugular reflex Cardiac: Heart sounds distant likely due to habitus. No M/G/R Lungs: CTA without W/R/R Abdomen: Normoactive X4. No evidence of Fong Broderick or Adair sign. Abdomen is soft with exquisite right upper quadrant tenderness. Positive Roldan sign Extremities: + Adiposity without true pitting edema Neuro: Cranial nerves II through XII are grossly intact. No focal neuro deficits Skin: No obvious skin lesions or rashes Psych: Appropriate affect. Pleasant and cooperative Results & Data Results & Data ([facility]) Vital Signs (Past 12 Hours) Vital Signs Temp Pulse Pulse Resp BP Pulse Ox 07/26/21 06:19 95 H 07/26/21 04:14 117/72 07/26/21 03:40 37.3 C 72 20 94/48 L 93 07/25/21 23:33 82 07/25/21 23:21 37.0 C 72 20 108/69 94 Laboratory Results 07/26/21 05:58 07/26/21 05:58 Total bilirubin: 1.2 AST: 52 ALT: 146 PG Care Time/CCT Total # of Minutes Spent Total Time Spent with Patient: Total time spent is greater than 50% in coordination of care (as documented) at patient's floor/unit and/or counseling patient: Coding Level of Care Code 70844 Subseq Hosp Care Lvl 2 Diagnoses Pancreatitis K85.90 Acute pancreatitis complication: unspecified Chronicity: acute Pancreatitis type: unspecified pancreatitis type Abdominal pain R10.84 Abdominal location: generalized Elevated LFTs R79.89 Diabetes mellitus type 2, uncontrolled E11.65 Dyslipidemia E78.5 Anxiety with depression F41.8 Hypertension I10 Hypothyroid E03.9 Sleep apnea G47.30 (1) Pancreatitis Acute pancreatitis complication: unspecified Chronicity: acute Pancreatitis type: unspecified pancreatitis type Qualified Code(s): K85.90 - Acute pancreatitis without necrosis or infection, unspecified (2) Abdominal pain Abdominal location: generalized Qualified Code(s): R10.84 - Generalized abdominal pain
[2021-07-26] MEDS: LACTATED RINGER'S 1,000 ML IV SCH ×2 (08:34→20:16)
[2021-07-26] MEDS: PIPERACILLIN/TAZOBACTAM 4.5 GM in DEXTROSE 5% 100 ML IV SCH ×2 (08:38→17:49)
[2021-07-26 09:00] LABS: Estimated Average Glucose 134 mg/dl; Hemoglobin A1C 6.3 % (4.5-5.6)
--- NOTE | 2021-07-26 12:35 | Anesthesiology Consultation ---
Date of Service July 26, 2021 Assessment & Plan (1) Encounter for pre-operative examination: Chart Review Chart Review: Acceptable Risk for Surgery and Patient NOT seen in Pre Admission Testing Consults Requested none History Surgery Operation Date: 07/26/21 09:40 Proposed Procedures p Laparoscopic Cholecystectomy Possible Open Possible Cholangiogram - Mitch Duckworth MD, FACS Height/Weight Height: 4 ft 11.5 in Weight: 124 kg Allergies Allergy/AdvReac Type Severity Reaction Status Date / Time miconazole Allergy Intermediate burning Verified 07/24/21 07:43 skin cleanser combination Allergy Intermediate BURNING/AMRIT Verified 07/24/21 07:43 no.17 H [From Monistat 3] Medications Home Medications Medication Instructions Recorded Confirmed Last Taken aspirin 81 mg tablet,delayed 81 mg PO QPM 03/26/18 07/24/21 07/23/21 release cholecalciferol (vitamin D3) 50 2,000 unit PO QPM 03/26/18 07/24/21 07/23/21 mcg (2,000 unit) capsule (Vitamin D3) cyanocobalamin (vitamin B-12) 1,000 mcg PO QPM 03/26/18 07/24/21 07/23/21 1,000 mcg tablet,extended release (Vitamin B-12 ER) glucosamine-chondroitin 250 mg-200 1 tab PO QPM 03/26/18 07/24/21 07/23/21 mg tablet (Osteo Bi-Flex) levonorgestrel 20 mcg/24 hours (7 1 device IU CONT ea 01/02/19 07/24/21 07/24/21 yrs) 52 mg intrauterine device (Mirena) meclizine 25 mg tablet 25 mg PO TID PRN #20 tab 07/31/19 07/24/21 07/13/21 BD Ultra-Fine Sushila Pen Needle 32 #100 ea NS 06/29/20 07/15/21 Unknown gauge x 5/32" (pen needle, diabetic) clobetasol 0.05 % topical foam 1 applic TOP DAILY #50 gm 06/30/20 07/24/21 U nknown lisinopril 2.5 mg tablet 2.5 mg PO QPM #90 tab 08/31/20 07/24/21 07/23/21 Victoza 3-Nikos 0.6 mg/0.1 mL (18 1.8 mg SUBCUT QPM 90 Days #27 ml NS 10/13/20 07/24/21 07/23/21 mg/3 mL) subcutaneous pen injector (liraglutide) metformin 500 mg tablet,extended 1,000 mg PO BIDM #360 tab 12/07/20 07/24/21 07/23/21 release 24 hr atorvastatin 20 mg tablet 20 mg PO QPM #30 tab 03/09/21 07/24/21 07/23/21 acetazolamide 500 mg 500 mg PO HS cap 04/02/21 07/24/21 07/23/21 capsule,extended release paroxetine HCl 10 mg tablet 10 mg PO QPM #90 tab 04/14/21 07/24/21 07/23/21 levothyroxine 50 mcg tablet 50 mcg PO QAM 07/16/21 07/24/21 07/23/21 ibuprofen 200 mg tablet (Motrin IB) 200 mg PO Q6H PRN 07/24/21 07/24/21 07/24/21 00:00 200 mg Active Medications Generic Name Dose Route Start Last Admin Trade Name Freq PRN Reason Stop Dose Admin Acetaminophen 650 mg 07/24/21 09:08 07/25/21 18:38 Acetaminophen 325 Mg Tab PO 08/23/21 09:07 650 mg Q4H PRN Administration pain/fever Acetazolamide 500 mg 07/25/21 21:00 07/25/21 20:26 Acetazolamide 500 Mg Capcr PO 08/24/21 20:59 500 mg HS SILVERIO Administration Hydromorphone HCl 0.5 mg 07/24/21 17:18 07/25/21 20:34 Hydromorphone Inj 0.5 Mg/0.5 Ml Syr IV 08/07/21 17:17 0.5 mg Q6H PRN Administration Pain Piperacillin Sod/Tazobactam 120 mls @ 30 mls/hr 07/24/21 16:00 07/26/21 08:38 Sod 4.5 gm/ Dextrose IV 08/03/21 15:59 30 mls/hr Q8H SILVERIO Administration Protocol Lactated Ringer's 1,000 mls @ 100 mls/hr 07/25/21 21:45 07/26/21 08:34 Lr IV 08/24/21 21:44 100 mls/hr .Q10H SILVERIO Administration Insulin Aspart 0 units 07/24/21 12:45 07/26/21 12:26 Insulin Aspart Per Unit SC 08/23/21 12:44 Not Given Q6H SILVERIO Insulin Glargine 10 units 07/24/21 21:00 07/25/21 20:27 Insulin Glargine Solostar 100 Units/Ml 3 Ml Pen SC 08/23/21 20:59 10 units HS SILVERIO Administration Levothyroxine Sodium 50 mcg 07/25/21 06:30 07/26/21 05:56 Levothyroxine Sodium 50 Mcg Tablet PO 08/24/21 06:29 50 mcg DAILYBB SILVERIO Administration Lisinopril 2.5 mg 07/25/21 21:00 07/25/21 20:26 Lisinopril 2.5 Mg Tab PO 08/24/21 20:59 2.5 mg QPM SILVERIO Administration Paroxetine HCl 10 mg 07/24/21 21:00 07/25/21 20:26 Paroxetine Hcl 10 Mg Tab PO 08/23/21 20:59 10 mg QPM SILVERIO Administration NPO Date Last Intake of Fluids: 07/25/21 Time Last Intake of Fluids: 20:00 Date Last Intake of Solids: 07/25/21 Past Medical History Medical History Anxiety and depression Arthritis Diabetes mellitus, type 2 History of uterine fibroid Hx of vertigo Hypothyroidism Irregular heart beat FOLLOWED BY DR. GARCIA Leg edema Neuropathy Non-healing surgical wound FLUID FROM UMBILICAL HERNIA>SMALL LEAKAGE OCCURS Sleep apnea CPAP Past Family History Family History Mother Ovarian cancer Stroke Family/Other Diabetes Father FH: deafness or hearing loss Cardiac disorder Hypertension Family/Other Breast cancer Unknown Allergies Environmental allergies Family/Other Asthma Grandfather (Maternal) Family history of diabetes mellitus Other No family history of adverse response to anesthesia Past Surgical History Surgical History Difficult airway for intubation Glidescope #3 04/2018 hernia repair. History of colonoscopy History of esophagogastroduodenoscopy (EGD) History of mandibular surgery History of tooth extraction History of ventral hernia repair Hx of abdominal surgery Umbilical exploration, excision of suture granuloma, closure of superficial fistula Hx of carpal tunnel repair LEFT Social History Smoking Status: Never smoker Smoking cigarettes per day: 0 Do You Dip or Chew Tobacco: No Hx Alcohol Use: No alcohol intake frequency: holidays/special occasions only Hx Substance Use: No substance use type: does not use Physical Exam Vital Signs Last Vital Signs Temp 97.7 F 07/26/21 11:21 Pulse 70 07/26/21 11:21 Resp 19 07/26/21 11:21 BP 152/81 H 07/26/21 11:21 Pulse Ox 96 07/26/21 11:21 Testing Laboratory Results 07/26/21 05:58 07/26/21 05:58 Urine Color Dark Yellow 07/24/21 04:03 Urine Appearance Clear (Clear) 07/24/21 04:03 Urine pH 5.0 (4.5-7.5) 07/24/21 04:03 Ur Specific [place] 1.008 (1.000-1.030) 07/24/21 04:03 Urine Protein Negative (Negative) 07/24/21 04:03 Urine Glucose (UA) Negative (Negative) 07/24/21 04:03 Urine Ketones Negative (Negative) 07/24/21 04:03 Urine Nitrite Negative (Negative) 07/24/21 04:03 Ur Leukocyte Esterase Negative (Negative) 07/24/21 04:03 07/26/21 07/26/21 12:01 05:55 POC Glucose 132 H 138 H Chest X-Ray Date: 07/23/21 Findings: + NAD
[2021-07-26] MEDS ORDERED: LIDOCAINE 2% 2 ML VIAL/AMP(20MG/ML) INFIL ONE (12:37)
[2021-07-26] MEDS ORDERED: PROPOFOL IV EMULSION 10 MG/ML 20 ML VIAL IV ONE (12:37)
[2021-07-26] MEDS ORDERED: fentaNYL citrate 100 MCG/2 ML VIAL ONE (12:37)
[2021-07-26] MEDS ORDERED: NEOSTIGMINE METHYLSULFATE 1 MG/ML 10ML VIAL ONE (12:37)
[2021-07-26] MEDS ORDERED: ONDANSETRON INJ 2 MG/ML 2 ML VIAL ONE (12:37)
[2021-07-26] MEDS ORDERED: GLYCOPYRROLATE 0.2 MG/ML VIAL ONE (12:37)
[2021-07-26] MEDS ORDERED: MIDAZOLAM HCL 1 MG/ML 2ML VIAL ONE (12:37)
[2021-07-26] MEDS ORDERED: DEXAMETHASONE SOD INJ 4 MG/ML VIAL ONE (12:37)
[2021-07-26] MEDS ORDERED: LIDOCAINE 1%/EPINEPHRINE 1:100,000 50 ML VIAL ONE (12:44)
[2021-07-26] MEDS ORDERED: EPINEPHrine INJ 1 MG/ML AMP ONE (12:50)
[2021-07-26] MEDS ORDERED: LIDOCAINE 1% LOCAL 20 ML VIAL ONE (12:50)
[2021-07-26] MEDS ORDERED: ATROPINE SULFATE 0.1 MG/ML 10ML SYR IV PRN (13:14)
[2021-07-26] MEDS ORDERED: ONDANSETRON INJ 2 MG/ML 2 ML VIAL IV PRN (13:14)
[2021-07-26] MEDS ORDERED: ePHEDrine sulfate 50 MG/ML AMP IV PRN (13:14)
[2021-07-26] MEDS ORDERED: PROMETHAZINE HCL INJ 25 MG/ML 1 ML VIAL ONE (13:30)
[2021-07-26] MEDS ORDERED: OPTIRAY 300 IV ONE (14:19)
--- NOTE | 2021-07-26 14:32 | Fluoroscopy Report ---
INTRAOPERATIVE CHOLANGIOGRAM HISTORY: Post cholecystectomy. FLUOROSCOPY TIME: 4 seconds. 4 fluoroscopic spot images of the right upper quadrant. FINDINGS: Fluoroscopy was provided for an intraoperative cholangiogram status post cholecystectomy. C ontrast was injected through the cystic duct remnant. The common bile duct is normal in course and ca liber. There are no filling defects seen within the common bile duct to suggest a retained stone. Co ntrast extends into the small bowel. There is no intrahepatic bile duct dilatation. IMPRESSION: Fluoroscopy provided for an intraoperative cholangiogram status post cholecystectomy. No filling defects within the common bile duct. ACT 112: Negative or not required by law. Electronically signed by: Paramjit Diaz M.D. 07/26/2021 2:31 PM
[2021-07-26] MEDS ORDERED: SURGICEL ABSORB HEMOSTAT 2IN X 14IN TOP ONE (14:38)
--- NOTE | 2021-07-26 14:55 | Post Operative Brief Note ---
PG Immediate Post Op with CF Date of Surgery July 26, 2021 Pre & Post Diagnosis Operation Date: 07/26/21 09:40 Pre-Op Diagnosis: Pancreatitis Post-Op Diagnosis: Pancreatitis I identified the patient and participated in the time-out.: Yes Procedure Operation Date: 07/26/21 09:40 Actual Procedures p Laparoscopic Cholecystectomy with Cholangiogram(Not Applicable) - Mitch Duckworth MD, FACS Surgeon Mitch Duckworth MD, FACS Upholstery Cutter kourtney herrera Estimated Blood Loss 50 Findings Consistent with Post-Op Diagnosis Specimens Specimen Description: A. Gallbladder Culture#1 gallbladder Drains Telly-Otero Drain (19fr)
--- NOTE | 2021-07-26 15:14 | Operative Report ---
Post Operative Report Pre & Post Diagnosis Operation Date: 07/26/21 09:40 Pre-Op Diagnosis: Chronic cholecystitis cholelithiasis with secondary pancreatitis Pancreatitis Post-Op Diagnosis: Same Pancreatitis I identified the patient and participated in the time-out.: Yes Procedure Operation Date: 07/26/21 09:40 Actual Procedures p Laparoscopic Cholecystectomy with Cholangiogram(Not Applicable) - Mitch Duckworth MD, FACS The patient was brought into the operating theater supine position general endotracheal anesthesia the abdomen was prepped Betadine solution properly draped a timeout was had patient was identified the patient had a very large body habitus therefore we made an incision approximately 3 inches above the umbilical crater to try to make sure that the scope would be long enough to visualize the right upper quadrant once we made this incision was able to elevate the fatty tissue and placed a Veress needle to its depth insufflated approximately 10 mmHg this point the trocar followed in the trocar was not long enough to enter the peritoneal cavity therefore I enlarged the incision sufficiently to grab the abdominal wall with [place] clamp and then was able to access the cavity with a 5 mm trocar without any difficulty followed by the camera point of entry spectrin no injury identified on direct visualization we placed a 5 mm epigastric port with preemptive local analgesic and 2 5 mm subcostal ports with preemptive local analgesic we could visualize the gallbladder fundus was able to be grabbed and elevated one with doing so we identified that the patient arising from the right lobe of the liver there was a tongue of all liver that was actually in the midportion of the gallbladder wrapping around that probably 50% of the way this point we placed the patient reverse Trendelenburg position return to the left and we able to dissect out the gallbladder which showed some chronic and acute inflammation most of the dissection was done bluntly and worked her way up to the neck of the gallbladder we bluntly dissected out and could identify lymph nodes and with that we worked back towards the base of the gallbladder could identify the takeoff of the cystic duct which was a bit larger than normal we used a 5 mm clip to clip the cystic duct at its takeoff from the gallbladder small opening the cystic duct was made we actually did not see any bowel come back but then we were able to place a #4 urethral catheter transversing a ball abdominal wall and a 14 Angiocath position the cystic duct held in place for 5 mm clip and x-rays were taken which showed free flow into the duodenum initial image the duct appeared to be larger normal I was not sure if there was a little air bubble in 1 distal aspect although it tapered off nicely into the duodenum without any obvious meniscus sign we took 2 x-rays which basically showed free flow duodenum no filling defects. The cystic duct was corkscrew in nature. We removed the Cholangiocath and doubly clipped the cystic duct securely the artery similarly identified which was large and clipped the right at that entry into the gallbladder doubly clipped proximally once distally gallbladder was raised from the liver edge appeared to be filled with stones actually we made a small in the gallbladder just proximal to the cystic duct clip and some bile and some stones extravasated. We then worked our way up from the neck of the gallbladder all the way to the fundus leaving as much posterior peritoneum was possible although we did enter the gallbladder in a few areas due to his chronic inflammation some larger stones fell out that we would retrieve at the end. We freed that nipple liver around the gallbladder we had some bleeding there but nothing significant finally were able to elevate the gallbladder in toto although fractionated in a few areas entering the wall and placed in an Endopouch and took it out intact through the epigastric port once we enlarged the incision in the epigastric port. We then placed a 12 mm trocar into the epigastric port site and used the larger grasper we were able to free up all the stones of the may have fallen into the subhepatic area in the Morison's pouch and a few above the liver we irrigated the area at the few fragments still intact but nothing significant. We did have some oozing from the liver which we controlled with electrocautery but I also placed a piece of Surgicel in the depth of the liver subhepatic suprahepatic area was suctioned out copiously I elected to drain the subhepatic area with a 19 Ganga drain prior to doing that we placed the camera right upper quadrant port site to visualize her initial entry into the umbilical area there were no adhesions identified in that area the Ganga drain was brought out medially taken out lateral to the right upper quadrant trocar site attached to skin edge with 2-0 silk this was placed subhepatic redundant Morison's pouch individual trochars were taken on direct visualization and last the umbilical trocar fascial sutures 2-0 Vicryl suture was used through the epigastric trocar site that we had enlarged with a 12mm some 2-0 Vicryl subcutaneous and Monocryl for skin edges dressing was applied procedure was tolerated well by the patient estimate blood loss 50 cc the gallbladder was cultured Addendum Ivet Dinh physician assistant offset press operator was present throughout the procedure and helped the retraction exposure and wound closure Try calling Catina ceron at [phone] with ring and then going to a busy signal Surgeon Mitch Duckworth MD, FACS Pool Servicer kourtney herrera Estimated Blood Loss 50 Findings Consistent with Post-Op Diagnosis Chronic cholecystitis cholelithiasis Specimens Gallbladder and contents C&S of the gallbladder Drains 19 Ganga round subhepatic through the right upper quadrant trocar site Indications Chronic cholecystitis cholelithiasis with secondary pancreatitis Description of Procedure merda I attest to the content of the Intraoperative Record and any orders documented therein. Any exceptions are noted below.
[2021-07-26] MEDS ORDERED: SUGAMMADEX SODIUM 200 MG/2 ML VIAL IV ONE (15:17)
[2021-07-26] MEDS ORDERED: KETOROLAC 30 MG/ML VIAL ONE (15:27)
[2021-07-26] MEDS: fentaNYL citrate 100 MCG/2 ML VIAL IV PRN ×2 (15:56→16:01)
--- NOTE | 2021-07-26 16:43 | Anesthesiology Progress Note ---
Date of Service July 26, 2021 Anesthesia Post Procedure Vital Signs Vital Signs: Temp Pulse Pulse Pulse Resp BP BP 07/26/21 16:20 80 18 128/55 L 07/26/21 16:10 74 20 131/67 07/26/21 16:00 73 20 133/67 07/26/21 15:50 80 24 131/78 07/26/21 15:40 82 22 141/81 H 07/26/21 15:30 36.9 C 82 84 22 118/77 07/26/21 14:22 85 07/26/21 13:05 37.3 C 96 H 20 108/72 07/26/21 11:21 36.5 C 70 19 152/81 H 07/26/21 10:51 37.4 C 92 H 16 118/52 L 07/26/21 07:51 37.2 C 90 18 120/58 L 07/26/21 06:19 95 H 07/26/21 04:14 117/72 07/26/21 03:40 37.3 C 72 20 94/48 L 07/25/21 23:33 82 07/25/21 23:21 37.0 C 72 20 108/69 07/25/21 19:12 38.6 C H 103 H 20 112/66 Pulse Ox 07/26/21 16:20 94 07/26/21 16:10 96 07/26/21 16:00 95 07/26/21 15:50 94 07/26/21 15:40 95 07/26/21 15:30 93 07/26/21 14:22 07/26/21 13:05 92 07/26/21 11:21 96 07/26/21 10:51 92 07/26/21 07:51 91 07/26/21 06:19 07/26/21 04:14 07/26/21 03:40 93 07/25/21 23:33 07/25/21 23:21 94 07/25/21 19:12 96 Pain Intensity Right Back: Pain Intensity: 7 Bilateral Abdomen: Pain Intensity: 4 Transfer of Care Handoff Completed per policy Notes Mental Status: alert / awake / arousable and participated in evaluation Patient Amnestic to Procedure: Yes Nausea / Vomiting: adequately controlled Pain: adequately controlled Airway Patency, RR, SpO2: stable & adequate BP & HR: stable & adequate Hydration State: stable & adequate Anesthetic Complications: no major complications apparent and Pt Satisfied with anesthetic care
[2021-07-26] MEDS ORDERED: MoRPHine SULFATE 2 MG/ML CARP IV PRN (17:26)
[2021-07-26] MEDS: PARoxetine HCL 10 MG TAB PO SCH (20:17)
[2021-07-26] MEDS: acetaZOLAMIDE 500 MG CAPCR PO SCH (20:17)
[2021-07-26] MEDS: INSULIN GLARGINE SOLOSTAR 100 UNITS/ML 3 ML PEN SC SCH (20:32)
[2021-07-26] MEDS: oxyCODONE/ACETAMINOPHEN 5mg/325mg TAB PO PRN (20:39)
[2021-07-26] MEDS: lisinopril 2.5 MG TAB PO SCH (20:43)
[2021-07-26] MEDS: MoRPHine SULFATE 4 MG/ML 1 ML CARP\\VIAL IV PRN (21:41)
--- NOTE | 2021-07-26 21:45 | Electrocardiogram Report ---
Test Reason : Blood Pressure : / mmHG Vent. 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 lead placement vs. LVH Abnormal ECG When compared with ECG of 06-AUG-2018 10:29, No significant change Confirmed by Ventura Soria ([id number]) on 07/26/2021 9:45:27 PM Referred By: REFERRED SELF Confirmed By:Ventura Soria
[2021-07-27] MEDS: PIPERACILLIN/TAZOBACTAM 4.5 GM in DEXTROSE 5% 100 ML IV SCH ×3 (00:21→16:42)
[2021-07-27] MEDS: MoRPHine SULFATE 4 MG/ML 1 ML CARP\\VIAL IV PRN (03:27)
[2021-07-27] MEDS: LACTATED RINGER'S 1,000 ML IV SCH ×2 (06:14→16:45)
[2021-07-27] MEDS: LEVOTHYROXINE SODIUM 50 MCG TABLET PO SCH (06:14)
[2021-07-27 06:18] LABS: Basophils # (auto) 0.01 K/uL (0-0.2); Basophils % (auto) 0.1 %; Eosinophils # (auto) 0.01 K/uL (0-0.5); Eosinophils % (auto) 0.1 %; Hematocrit (blood only) 35.4 % (37-47); Hemoglobin 12.1 g/dL (12.0-16.0); Immature Granulocytes # (auto) 0.05 K/uL (0.00-0.02); Immature Granulocytes % (auto) 0.3 %; Lymphocytes # (auto) 1.13 K/uL (1.2-3.4); Mean Corpuscular Hemoglobin 31.8 pg (25-34); Mean Corpuscular Hgb Conc 34.2 g/dL (32-36); Mean Corpuscular Volume 93.2 fL (80-100); Monocytes # (auto) 0.89 K/uL (0.11-0.59); Monocytes % (auto) 4.7 %; Neutrophils # (auto) 16.71 K/uL (1.4-6.5); Neutrophils % (auto) 88.8 %; Platelet Count 367 K/uL (130-400); RDW Coefficient of Variation 13.1 % (11.5-14.5); RDW Standard Deviation 44.6 fL (36.4-46.3)
[2021-07-27 06:46] LABS: Albumin Globulin Ratio 1.2 (0.9-2); Albumin Level 3.4 gm/dl (3.4-5.0); BUN Creatinine Ratio 16.1 (10-20); Bilirubin,Total 0.7 mg/dl (0.2-1.0); Calcium 7.6 mg/dl (8.5-10.1); Est GFR (African American) 116.8 ml/min; Est GFR (Non-African American) 100.8 ml/min; Globulin 2.8 gm/dl (2.5-4.0); Magnesium 1.8 mg/dl (1.7-2.4); Potassium 3.7 mmol/L (3.5-5.1); Total Protein 6.2 gm/dl (6.0-8.3)
--- NOTE | 2021-07-27 06:54 | Surgery Progress Note ---
Date of Service July 27, 2021 Assessment & Plan (1) Pancreatitis: Plan: POD#1 status post laparoscopic cholecystectomy intraoperative cholangiogram (no filling defect in the common bile duct) Intraoperative findings were discussed with the patient Plan at this time is reevaluate later this morning may be able to take out the Ganga drain depending on the amount that is what we recorded this morning The patient may be discharged later today if she is able to tolerate a diet and oral analgesics sufficient for pain control and if okay with the medical service 07/26/2021 MRCP yesterday negative for choledocholithiasis We will proceed with laparoscopic cholecystectomy intraoperative cholangiogram possible excision of the umbilical area later today Lab noted Risk and complication were explained to the patient including bleeding infection converting to an open procedure and she would like to proceed accordingly All question answered Will sign permit when she is in the preop area Patient here w/ presumed gallstone pancreatitis Temp 38.3 this AM Labs show WBC 15 (16), LFT's Tb: 1.8(1.9, AST 107, ALT: 213, AlkP:183, Lipase 379(5000) Patient tender to exam in RUQ/epigastric region Planning for MRCP today. GI following NPO at midnight pending any procedures tomorrow Pt seen/examined with Dr. Duckworth Admission and Anticipated Discharge Date Admission Date: July 25, 2021 Subjective Patient is up and around without any discomfort stating she tolerated a diet last evening minimal abdominal discomfort Physical Exam Physical Exam: Is alert coherent actually on her way back from the bathroom Minimal drainage from the Ganga drain that was left subhepatic Results & Data ([facility]) Vital Signs (Past 12 Hours) Vital Signs Temp Pulse Pulse Resp BP Pulse Ox 07/27/21 06:44 36.4 C L 74 18 102/60 93 07/27/21 03:06 36.4 C L 85 20 97/62 L 93 07/27/21 02:29 19 93 07/26/21 23:35 85 07/26/21 22:37 36.4 C L 79 18 95/59 L 94 07/26/21 21:13 75 25 H 91 07/26/21 19:30 36.7 C 93 H 20 96/61 L 92 07/26/21 19:27 37.5 C 75 20 120/80 95 PG Care Time/CCT Total # of Minutes Spent Total Time Spent with Patient: Total time spent is greater than 50% in coordination of care (as documented) at patient's floor/unit and/or counseling patient: Coding Level of Care Code None Diagnoses Pancreatitis K85.90 Acute pancreatitis complication: unspecified Chronicity: acute Pancreatitis type: unspecified pancreatitis type (1) Pancreatitis Acute pancreatitis complication: unspecified Chronicity: acute Pancreatitis type: unspecified pancreatitis type Qualified Code(s): K85.90 - Acute pancreatitis without necrosis or infection, unspecified
[2021-07-27] MEDS: INSULIN ASPART PER UNIT SC SCH ×4 (08:53→20:15)
[2021-07-27] MEDS: oxyCODONE/ACETAMINOPHEN 5mg/325mg TAB PO PRN ×2 (08:54→17:49)
--- NOTE | 2021-07-27 09:39 | Hospitalist Progress Note ---
Date of Service July 27, 2021 Assessment & Plan (1) Pancreatitis: Plan: 55-year-old white female presented with abdominal pain X 2 days suspect Gallstone Pancreatitis from passed stone/sludge on admission: WBC count elevated at 16.37 but initially without fever and HD stable. Lipase: initially 5196--> has since normalized= 20 Elevated LFTs (TB: 1.9, AST: 218, ALT: 280)--> has downtrended (0.7/62/126 respiectively) CT of A/P:edema of the pancreatic head with a distended gallbladder. Gallbladder wall thickened with no ductal dilatation RUQ U/S: shows distended and thickened gallbladder wall with evidence of cholecystitis and concern for early cholecystitis. Mildly dilated common bile duct MRCP: Mild interstitial edema of the pancreatic head. Cholelithiasis with mild gallbladder wall thickening and decreased gallbladder distention. Cannot exclude acute cholecystitis. No ductal dilatation or choledocholithiasis identified GI following- appreciate assistance General Surgery following- appreciate assistance is s/p cholecystectomy with cholangiography. Patient likely passed stone/sludge as LFT's/Lipase downtrending tolerating clear liquids. will advance diet (2) Abdominal pain: Plan: - see above. - 2/2 gallstone pancreatitis and acute on chronic cholecystitis - is s/p cholecystectomy with cholangiography (3) Cholecystitis: Plan: - did have developing sepsis syndrome (leukocytosis, fever, tachycardia) with normal lactic acid - CT of A/P with suggestions of acute cholecystitis - RUQ showing distended and thickened GB concerning for early cholecystitis. clinically with + Roldan's sign - MRCP showing no obvious choledocholithiasis or filling defect and GB wall thickening - is s/p laparoscopic cholecystectomy with cholangiography (showing no filling defect) - WBC uptrending (18K) today but patient has since defervesced and is HD stable - is c/o Right pleuritic pain and shoulder pain. could be related to air utilized from laparoscopic procedure; however, given that she is on O2 (seems to have been placed during her surgery and not taken off) and her leukocytosis, will obtain CTA to rule out a PE - currently on Zosyn. Continue empiric abx therapy (x 7 days total) (4) Elevated LFTs: Plan: - Likely 2/2 stone/sludge passed in ductal system. - LFT's downtrending - cholangiography WNL (5) Leukocytosis: Plan: - 16K on arrival (likely d/t cholecystis) - now 18K post cholecystectomy - rise in WBC could be reactive from surgery; however, ruling out a PE (as outlined above) and obtaining a UA with C&S given c/o urgency - on empirically on zosyn. If UA grossly infected, would be inclined to change coverage to cipro/flagyl for better coverage. - continue to follow clinically. (6) Diabetes mellitus type 2, uncontrolled: Plan: Type 2 diabetes Holding home metformin and Victoza Blood sugars being monitored and corrected via sliding scale in addition to utilization of basal insulin (7) Dyslipidemia: Plan: Holding statin given abnormal LFTs as outlined above - okay to resume upon D/C (8) Anxiety with depression: Plan: - Continue home paroxetine (9) Hypertension: Plan: Hypertension Continue home lisinopril 2.5 mg nightly Hold aspirin due to need for surgical intervention (10) Hypothyroid: Plan: Hypothyroidism Continue home Synthroid 50 mcg p.o. every morning (11) Sleep apnea: Plan: CPAP nightly as needed - has been on supplemental O2 post surgery (as she requested this as opposed to her CPAP). No documented hypoxemia Plan: plan of care to be d/w attending provider. further orders as warranted lovenox for DVt prophylaxis. If CTA positive, will transition to tx dose. Admission and Anticipated Discharge Date Admission Date: July 25, 2021 Subjective Patient seen on daily rounds today. c/o Right sided abd pain and shoulder pain- worse when taking a deep breath. In addition, c/o a feeling of urinary urgency but difficulty starting her steam. "Feels like she has to urinate but can't". Bladder scan done this am (as had not urinated since last evening). Bladder only with 66cc. Is receiving IVF. UA last done 07/24 and not grossly infected. No fevers (last fever spike was 07/25/21 at 7:12 PM). Is not s/p cholecystectomy. Cholangiogram performed with no filling defect. Remains on continuous empiric abx therapy. WBC uptrended slightly today. Review of Systems Review of Systems: All systems reviewed and are unremarkable except as noted in HPI and below Denies fevers, chills, headache, nasal congestion, sore throat, cough, chest pain, shortness of breath, palpitations, orthopnea, PND, nausea, vomiting, diarrhea, constipation, hematuria, back pain, joint pain or swelling, easy bruising or bleeding, skin lesions or rashes. Physical Exam Physical Exam: General: Resting comfortably in her hospital bed. Does not appear ill or toxic. NAD. HEENT: Head is AT/NC. Buccal mucosa is moist and pink Neck: No JVD. Negative hepatojugular reflex Cardiac: Heart sounds distant likely due to habitus. No M/G/R Lungs: CTA without W/R/R Abdomen: Normoactive X4. Abdomen is soft. Surgical dressing dry and intact. HEAVEN drain noted. Mild tenderness (mostly seems incisional). Mild suprapubic tenderness. Extremities: + Adiposity without true pitting edema Neuro: Cranial nerves II through XII are grossly intact. No focal neuro deficits Skin: No obvious skin lesions or rashes Psych: Appropriate affect. Pleasant and cooperative Results & Data Results & Data ([facility]) Vital Signs (Past 12 Hours) Vital Signs Temp Pulse Pulse Resp BP Pulse Ox 07/27/21 06:44 36.4 C L 74 18 102/60 93 07/27/21 03:06 36.4 C L 85 20 97/62 L 93 07/27/21 02:29 19 93 07/26/21 23:35 85 07/26/21 22:37 36.4 C L 79 18 95/59 L 94 Laboratory Results 07/27/21 05:40 07/27/21 05:40 TB: 0.7 AST: 62 ALT: 126 PG Care Time/CCT Total # of Minutes Spent Total Time Spent with Patient: Total time spent is greater than 50% in coordination of care (as documented) at patient's floor/unit and/or counseling patient: Coding Level of Care Code 05036 Subseq Hosp Care Lvl 3 Diagnoses Pancreatitis K85.90 Acute pancreatitis complication: unspecified Chronicity: acute Pancreatitis type: unspecified pancreatitis type Abdominal pain R10.84 Abdominal location: generalized Elevated LFTs R79.89 Diabetes mellitus type 2, uncontrolled E11.65 Dyslipidemia E78.5 Anxiety with depression F41.8 Hypertension I10 Hypothyroid E03.9 Sleep apnea G47.30 Cholecystitis K81.9 Leukocytosis D72.829 (1) Pancreatitis Acute pancreatitis complication: unspecified Chronicity: acute Pancreatitis type: unspecified pancreatitis type Qualified Code(s): K85.90 - Acute pancreatitis without necrosis or infection, unspecified (2) Abdominal pain Abdominal location: generalized Qualified Code(s): R10.84 - Generalized abdominal pain
[2021-07-27 10:41] LABS: Appearance Urine Clear (Clear); Bilirubin Urine Negative (Negative); Blood Urine Negative (Negative); Color Urine Yellow; Glucose Urine UA Negative (Negative); Ketones Urine 1+ (Negative); Leukocyte Esterase Urine Negative (Negative); Nitrite Urine Negative (Negative); Protein Urine Negative (Negative); Specific Gravity Urine 1.013 (1.000-1.030); Urobilinogen Urine Negative (Negative); pH Urine 7.5 (4.5-7.5)
[2021-07-27] MEDS: ENOXAPARIN INJ 30 MG/0.3 ML SYR SQ SCH (10:56)
[2021-07-27] MEDS ORDERED: OPTIRAY 320 125ml IV ONE (12:53)
--- NOTE | 2021-07-27 13:25 | CT Scan Report ---
CT angio chest PE protocol CT DOSE: 920.70 mGy.cm HISTORY: 56 years-old Female with PE. Acute shortness of breath TECHNIQUE: Multiple CTA images of the chest were obtained after the intravenous administration of 121 ml Optiray. Coronal and sagittal MIPS were obtained from the axial data set and were submitted for review. All measurements were obtained according to NASCET criteria. A dose lowering technique was u tilized adhering to the principles of ALARA. COMPARISON: Chest radiographs 07/23/2021 FINDINGS: CTA: Moderate cardiomegaly. Trace pericardial effusion. Four-vessel morphology of the thoracic aorta arch. No thoracic aortic aneurysm or dissection. Unremarkable pulmonary artery. The segmental and subsegme ntal pulmonary arterial branches are suboptimally evaluated secondary to respiratory motion artifact. No central pulmonary emboli are identified. CT CHEST: Unremarkable thyroid. Mildly prominent subcentimeter mediastinal lymph nodes are likely physiologic. Trace pleural effusions, right greater than left. No pneumothorax. Linear subsegmental atelectasis of the left upper lobe. Patchy groundglass and consolidative multilobar opacities are most pronounced w ithin the right greater than left lower lobes. The central airways appear patent. Mild air trapping. Hepatomegaly with hepatic steatosis. No acute process of the imaged upper abdomen. Nonspecific mildly prominent lymph nodes within the erasmo hepatis. Unremarkable soft tissues. No acute fracture. IMPRESSION: 1. Cardiomegaly without pulmonary emboli identified. Evaluation of the pulmonary arterial tree howeve r is limited as above. 2. Patchy multilobar right basilar predominant groundglass and consolidative opacities are suggestive of multifocal pneumonia. 3. Trace pleural effusions. ACT 112: Negative or not required by law. The above report was generated using voice recognition software. It may contain grammatical, syntax o r spelling errors. Electronically signed by: Tremaine Balbuena M.D. 07/27/2021 1:24 PM
[2021-07-27] MEDS ORDERED: ALBUT/IPRATROP 3MG/0.5MG NEB 3 ML VIAL NEB PRN (16:46)
[2021-07-27] MEDS: levoFLOXacin/D5W 750 MG/150 ML BAG IV SCH (17:40)
[2021-07-27] MEDS: metroNIDAZOLE 500 MG TAB PO SCH (20:16)
[2021-07-27] MEDS: DOCUSATE SODIUM 100 MG CAP PO SCH (20:16)
[2021-07-27] MEDS: guaiFENesin 600 MG TABCR PO SCH (20:16)
[2021-07-27] MEDS: INSULIN GLARGINE SOLOSTAR 100 UNITS/ML 3 ML PEN SC SCH (20:16)
[2021-07-27] MEDS: PARoxetine HCL 10 MG TAB PO SCH (20:17)
[2021-07-27] MEDS: lisinopril 2.5 MG TAB PO SCH (20:17)
[2021-07-27] MEDS: acetaZOLAMIDE 500 MG CAPCR PO SCH (20:17)
[2021-07-28] MEDS: oxyCODONE/ACETAMINOPHEN 5mg/325mg TAB PO PRN ×2 (03:05→19:51)
[2021-07-28] MEDS: LEVOTHYROXINE SODIUM 50 MCG TABLET PO SCH (05:55)
[2021-07-28 06:41] LABS: Hemoglobin 11.9 g/dL (12.0-16.0); Mean Corpuscular Hemoglobin 31.2 pg (25-34); Mean Corpuscular Hgb Conc 33.1 g/dL (32-36); Mean Corpuscular Volume 94.5 fL (80-100); Mean Platelet Volume 8.8 fL (7.4-10.4); Platelet Count 374 K/uL (130-400); RDW Coefficient of Variation 13.3 % (11.5-14.5); RDW Standard Deviation 45.7 fL (36.4-46.3); Red Blood Count 3.81 M/uL (4.2-5.4); White Blood Count 12.79 K/uL (4.8-10.8)
--- NOTE | 2021-07-28 06:50 | Surgery Progress Note ---
Date of Service July 28, 2021 Assessment & Plan (1) Pancreatitis: Plan: POD#2 She continues to do well her liver functions are normalizing white count decreasing We will plan to remove the Ganga drainage this morning and hopefully she will be discharged later today All question answered POD#1 status post laparoscopic cholecystectomy intraoperative cholangiogram (no filling defect in the common bile duct) Intraoperative findings were discussed with the patient Plan at this time is reevaluate later this morning may be able to take out the Ganga drain depending on the amount that is what we recorded this morning The patient may be discharged later today if she is able to tolerate a diet and oral analgesics sufficient for pain control and if okay with the medical service 07/26/2021 MRCP yesterday negative for choledocholithiasis We will proceed with laparoscopic cholecystectomy intraoperative cholangiogram possible excision of the umbilical area later today Lab noted Risk and complication were explained to the patient including bleeding infection converting to an open procedure and she would like to proceed accordingly All question answered Will sign permit when she is in the preop area Patient here w/ presumed gallstone pancreatitis Temp 38.3 this AM Labs show WBC 15 (16), LFT's Tb: 1.8(1.9, AST 107, ALT: 213, AlkP:183, Lipase 379(5000) Patient tender to exam in RUQ/epigastric region Planning for MRCP today. GI following NPO at midnight pending any procedures tomorrow Pt seen/examined with Dr. Duckworth Admission and Anticipated Discharge Date Admission Date: July 25, 2021 Subjective Overall is doing well still has some abdominal discomfort points towards right upper quadrant at the drain site Tolerated diet yesterday no nausea minimal residual back pain Physical Exam Physical Exam: Alert comfortable in bed no acute distress The sclerae nonicteric The abdomen soft no tenderness dressing on the trocar sites are free of any seepage or staining Ganga drain right upper quadrant serous slightly sanguinous nonbilious Results & Data ([facility]) Vital Signs (Past 12 Hours) Vital Signs Temp Pulse Pulse Resp BP Pulse Ox 07/28/21 06:37 36.6 C 85 20 94/61 L 91 07/28/21 04:08 36.4 C L 87 20 96/59 L 95 07/28/21 02:40 64 17 100 07/27/21 23:14 36.3 C L 88 20 100/56 L 97 07/27/21:15 83 22 92 PG Care Time/CCT Total # of Minutes Spent Total Time Spent with Patient: Total time spent is greater than 50% in coordination of care (as documented) at patient's floor/unit and/or counseling patient: Coding Level of Care Code None Diagnoses Pancreatitis K85.90 Acute pancreatitis complication: unspecified Chronicity: acute Pancreatitis type: unspecified pancreatitis type (1) Pancreatitis Acute pancreatitis complication: unspecified Chronicity: acute Pancreatitis type: unspecified pancreatitis type Qualified Code(s): K85.90 - Acute pancreatitis without necrosis or infection, unspecified
[2021-07-28 07:11] LABS: Albumin Globulin Ratio 1.2 (0.9-2); Albumin Level 3.3 gm/dl (3.4-5.0); BUN Creatinine Ratio 17.2 (10-20); Bilirubin,Total 0.5 mg/dl (0.2-1.0); Creatinine Clr Calc Pharmacy 118.1 ml/min; Est GFR (African American) 115.6 ml/min; Est GFR (Non-African American) 99.8 ml/min; Globulin 2.8 gm/dl (2.5-4.0); Magnesium 1.8 mg/dl (1.7-2.4); Potassium 3.4 mmol/L (3.5-5.1); Total Protein 6.1 gm/dl (6.0-8.3)
[2021-07-28] MEDS ORDERED: POTASSIUM CHLORIDE CRTAB 20 MEQ TABCR PO STA (07:36)
[2021-07-28] MEDS: metroNIDAZOLE 500 MG TAB PO SCH ×3 (08:45→20:03)
[2021-07-28] MEDS: guaiFENesin 600 MG TABCR PO SCH ×2 (08:45→20:04)
[2021-07-28] MEDS: ENOXAPARIN INJ 30 MG/0.3 ML SYR SQ SCH (08:46)
[2021-07-28] MEDS: DOCUSATE SODIUM 100 MG CAP PO SCH ×2 (08:46→20:03)
[2021-07-28] MEDS ORDERED: SODIUM CHLORIDE 0.9% 1000ML 1,000 ML IV SCH (08:50)
[2021-07-28] MEDS: INSULIN ASPART PER UNIT SC SCH ×4 (08:52→20:12)
[2021-07-28] MEDS: ACETAMINOPHEN 325 MG TAB PO PRN (12:20)
[2021-07-28] MEDS ORDERED: MECLIZINE HCL 25 MG TAB PO PRN (14:51)
--- NOTE | 2021-07-28 14:56 | Hospitalist Progress Note ---
Date of Service July 28, 2021 Assessment & Plan (1) Pancreatitis: Plan: 55-year-old white female presented with abdominal pain X 2 days suspect Gallstone Pancreatitis from passed stone/sludge on admission: WBC count elevated at 16.37 but initially without fever and HD stable. Lipase: initially 5196--> has since normalized= 20 Elevated LFTs (TB: 1.9, AST: 218, ALT: 280)--> has downtrended (0.5/153/100 respiectively) CT of A/P:edema of the pancreatic head with a distended gallbladder. Gallbladder wall thickened with no ductal dilatation RUQ U/S: shows distended and thickened gallbladder wall with evidence of cholecystitis and concern for early cholecystitis. Mildly dilated common bile duct MRCP: Mild interstitial edema of the pancreatic head. Cholelithiasis with mild gallbladder wall thickening and decreased gallbladder distention. Cannot exclude acute cholecystitis. No ductal dilatation or choledocholithiasis identified GI following- appreciate assistance General Surgery following- appreciate assistance is s/p cholecystectomy with cholangiography. Patient likely passed stone/sludge as LFT's/Lipase downtrending tolerating clear liquids. will advance diet (2) Abdominal pain: Plan: - see above. - 2/2 gallstone pancreatitis and acute on chronic cholecystitis - is s/p cholecystectomy with cholangiography (3) Cholecystitis: Plan: - did have developing sepsis syndrome (leukocytosis, fever, tachycardia) with normal lactic acid - CT of A/P with suggestions of acute cholecystitis - RUQ showing distended and thickened GB concerning for early cholecystitis. clinically with + Roldan's sign - MRCP showing no obvious choledocholithiasis or filling defect and GB wall thickening - is s/p laparoscopic cholecystectomy with cholangiography (showing no filling defect) - HEAVEN drain since removed - patient tolerated oral intake and cleared from surgical standpoint to FU with them as an outpatient - empirically on Zosyn upfront- transitioned to Levaquin/Flagyl for PNA- see below (4) Elevated LFTs: Plan: - Likely 2/2 stone/sludge passed in ductal system. - LFT's downtrending - cholangiography WNL (5) Leukocytosis: Plan: - 16K on arrival (likely d/t cholecystis) - up to 18K post cholecystectomy - CTA done right right pleuritic pain, negative for PE but positive for PNA - abx changed-- WBC downtrending (6) Pneumonia: Plan: -On 07/27, was complaining of right shoulder pain and right pleuritic pain. Thought it could have been secondary to laparoscopic cholecystectomy and air entrapment; however, she was slightly tachycardic and requiring low levels of supplemental oxygen. - A CTA was done to rule out PE. No evidence of PE but found to have patchy multilobar groundglass opacities in the right base suggestive of multifocal pne umonia - Patient had already been on Zosyn empirically since admission for acute cholecystitis. Given persistence/progression in symptoms, her antibiotic therapy was changed - Changed to Levaquin/Flagyl which would provide adequate coverage from a GI perspective (from cholecystectomy/acute cholecystitis). In addition, does provide atypical coverage - WBC count downtrending. No longer requiring oxygen. Patient afebrile. (7) Dizziness: Plan: -Patient complaining of dizziness on 07/28 which prohibited discharge to home -Describes it as a lightheaded feeling rather than vertigo -BP 97/61. Received IV fluids and BP 111/65 but symptoms persist. -This symptom predates this hospitalization and she follows Dr. Olivier for ongoin g dizziness for which she takes Diamox --In review of neurology records, she has a diagnosis of idiopathic and episodic dizziness. No conclusive evidence that she has intracranial hypertension or M nire's; however, responding to Diamox. In addition, it was noted that her BP tends to run low at that appointment (8) Diabetes mellitus type 2, uncontrolled: Plan: Type 2 diabetes Holding home metformin and Victoza Blood sugars being monitored and corrected via sliding scale in addition to utilization of basal insulin (9) Dyslipidemia: Plan: Holding statin given abnormal LFTs as outlined above - okay to resume upon D/C (10) Anxiety with depression: Plan: - Continue home paroxetine (11) Hypertension: Plan: Hypertension Takes lisinopril 2.5 mg daily. We will hold this given dizziness and marginal hypotension of 94/61 Hold aspirin due to need for surgical intervention (12) Hypothyroid: Plan: Hypothyroidism Continue home Synthroid 50 mcg p.o. every morning (13) Sleep apnea: Plan: CPAP nightly Plan: plan of care to be d/w Dr. Al. further orders as warranted lovenox for DVt prophylaxis. Admission and Anticipated Discharge Date Admission Date: July 25, 2021 Subjective Patient seen on daily rounds today. Not feeling well but unable to put into words. Initially reports feeling "dizzy". Described more as a lightheaded sensation then the room spinning but when later seen, said it was more of a "headache". She does have chronic intermittent dizziness for which she follows neurology for. That is why she takes Diamox. Reports the way that she is feeling is not far from her intermittent episodes. She is concerned with going home feeling the way that she does. In addition, she now has a productive cough with ward sputum. No fevers. Otherwise hemodynamically stable. Not hypoxic or requiring supplemental oxygen. Review of Systems Review of Systems: All systems reviewed and are unremarkable except as noted in HPI and below Denies fevers, chills, headache, nasal congestion, sore throat, chest pain, shortness of breath, palpitations, orthopnea, PND, abdominal pain, nausea, vomiting, diarrhea, constipation, dysuria, hematuria, frequency, back pain, joint pain or swelling, easy bruising or bleeding, skin lesions or rashes. Physical Exam Physical Exam: General: Resting comfortably in her hospital bed. She does not appear ill or toxic. NAD. HEENT: Head is AT/NC. Buccal mucosa is moist and pink Neck: No JVD. Negative hepatojugular reflex Cardiac: Distant heart sounds without m/g/r Lungs: Speaking full sentences on ambient air. Normal respiratory effort. Distant breath sounds throughout likely due to habitus. No wheezes, rales or rhonchi. Negative egophony Abdomen: At bedside when HEAVEN chain removed. Surgical wound well approximated. Dry. No periwound erythema. Normoactive BS X4. Abdomen soft and nontender Extremities: + Adiposity without true pitting edema Neuro: A&O X4. Cranial nerves II through XII are grossly intact. No focal neuro deficits Skin: No obvious skin lesions or rashes Psych: Appropriate affect. Pleasant and cooperative Results & Data Results & Data ([facility]) Vital Signs (Past 12 Hours) Vital Signs Temp Pulse Resp BP BP Pulse Ox 07/28/21 14:49 37.0 C 95 H 20 111/65 95 07/28/21 11:10 111/65 07/28/21 10:55 36.6 C 90 18 107/66 94 07/28/21 10:07 86 114/69 07/28/21 06:37 36.6 C 85 20 94/61 L 91 07/28/21 04:08 36.4 C L 87 20 96/59 L 95 Laboratory Results 07/28/21 06:11 07/28/21 06:11 PG Care Time/CCT Total # of Minutes Spent Total Time Spent with Patient: Total time spent is greater than 50% in coordination of care (as documented) at patient's floor/unit and/or counseling patient: Coding Level of Care Code 15297 Subseq Hosp Care Lvl 2 Diagnoses Pancreatitis K85.90 Acute pancreatitis complication: unspecified Chronicity: acute Pancreatitis type: unspecified pancreatitis type Abdominal pain R10.84 Abdominal location: generalized Cholecystitis K81.9 Elevated LFTs R79.89 Leukocytosis D72.829 Diabetes mellitus type 2, uncontrolled E11.65 Dyslipidemia E78.5 Anxiety with depression F41.8 Hypertension I10 Hypothyroid E03.9 Sleep apnea G47.30 Pneumonia J18.9 Dizziness R42 (1) Pancreatitis Acute pancreatitis complication: unspecified Chronicity: acute Pancreatitis type: unspecified pancreatitis type Qualified Code(s): K85.90 - Acute pancreatitis without necrosis or infection, unspecified (2) Abdominal pain Abdominal location: generalized Qualified Code(s): R10.84 - Generalized abdominal pain
[2021-07-28 15:15] LABS: Influenza A virus by PCR Negative (Neg); Influenza B virus by PCR Negative (Neg); RSV by PCR Negative (Neg); SARS CoV2 RNA(COVID-19) InHosp NEGATIVE (Negative)
[2021-07-28] MEDS: levoFLOXacin/D5W 750 MG/150 ML BAG IV SCH (17:51)
[2021-07-28] MEDS: acetaZOLAMIDE 500 MG CAPCR PO SCH (20:03)
[2021-07-28] MEDS: PARoxetine HCL 10 MG TAB PO SCH (20:03)
[2021-07-28] MEDS: INSULIN GLARGINE SOLOSTAR 100 UNITS/ML 3 ML PEN SC SCH (20:12)
[2021-07-28] MEDS ORDERED: CALCIUM CARBONATE 500 MG CHEWABLE TAB PO STA (21:45)
[2021-07-29] MEDS: LEVOTHYROXINE SODIUM 50 MCG TABLET PO SCH (06:04)
[2021-07-29 06:26] LABS: Basophils # (auto) 0.03 K/uL (0-0.2); Basophils % (auto) 0.2 %; Eosinophils # (auto) 0.51 K/uL (0-0.5); Eosinophils % (auto) 4.2 %; Hematocrit (blood only) 37.5 % (37-47); Hemoglobin 12.4 g/dL (12.0-16.0); Immature Granulocytes # (auto) 0.09 K/uL (0.00-0.02); Immature Granulocytes % (auto) 0.7 %; Lymphocytes # (auto) 2.95 K/uL (1.2-3.4); Lymphocytes % (auto) 24.4 %; Mean Corpuscular Hemoglobin 31.5 pg (25-34); Mean Corpuscular Hgb Conc 33.1 g/dL (32-36); Mean Corpuscular Volume 95.2 fL (80-100); Mean Platelet Volume 9.1 fL (7.4-10.4); Monocytes # (auto) 1.47 K/uL (0.11-0.59); Monocytes % (auto) 12.2 %; Neutrophils # (auto) 7.03 K/uL (1.4-6.5); Neutrophils % (auto) 58.3 %; Platelet Count 403 K/uL (130-400); RDW Coefficient of Variation 13.4 % (11.5-14.5); RDW Standard Deviation 46.8 fL (36.4-46.3); Red Blood Count 3.94 M/uL (4.2-5.4); White Blood Count 12.08 K/uL (4.8-10.8)
[2021-07-29 06:55] LABS: Albumin Globulin Ratio 1.2 (0.9-2); Albumin Level 3.3 gm/dl (3.4-5.0); BUN Creatinine Ratio 14.5 (10-20); Bilirubin,Total 0.4 mg/dl (0.2-1.0); Calcium 8.5 mg/dl (8.5-10.1); Creatinine Clr Calc Pharmacy 121.9 ml/min; Est GFR (African American) 116.8 ml/min; Est GFR (Non-African American) 100.8 ml/min; Globulin 2.7 gm/dl (2.5-4.0); Magnesium 1.9 mg/dl (1.7-2.4); Potassium 3.8 mmol/L (3.5-5.1)
[2021-07-29] MEDS: metroNIDAZOLE 500 MG TAB PO SCH ×3 (08:03→21:11)
[2021-07-29] MEDS: DOCUSATE SODIUM 100 MG CAP PO SCH ×2 (08:03→21:17)
[2021-07-29] MEDS: guaiFENesin 600 MG TABCR PO SCH ×2 (08:03→21:11)
[2021-07-29] MEDS: ENOXAPARIN INJ 30 MG/0.3 ML SYR SQ SCH (08:04)
[2021-07-29] MEDS: INSULIN ASPART PER UNIT SC SCH ×4 (08:49→21:09)
--- NOTE | 2021-07-29 10:39 | Surgery Progress Note ---
Date of Service July 29, 2021 Assessment & Plan (1) Pancreatitis: Plan: POD 4 lap barb stable ok for discharge seen with Dr. Duckworth Admission and Anticipated Discharge Date Admission Date: July 25, 2021 Subjective tolerating diet, no BM Physical Exam Gastrointestinal (Abdomen): Inspection/Auscultation: + abdominal surgical incision (clean, dry) Percussion/Palpation: abdomen soft Results & Data ([facility]) Vital Signs (Past 12 Hours) Vital Signs Temp Pulse Resp BP Pulse Ox 07/29/21 07:32 37.1 C 85 16 121/63 92 07/29/21 00:41 37.1 C 90 20 105/64 92 07/28/21 23:14 37.0 C 87 20 96/62 L 92 PG Care Time/CCT Total # of Minutes Spent Total Time Spent with Patient: Total time spent is greater than 50% in coordination of care (as documented) at patient's floor/unit and/or counseling patient: Coding Level of Care Code None Diagnoses Pancreatitis K85.90 Acute pancreatitis complication: unspecified Chronicity: acute Pancreatitis type: unspecified pancreatitis type (1) Pancreatitis Acute pancreatitis complication: unspecified Chronicity: acute Pancreatitis type: unspecified pancreatitis type Qualified Code(s): K85.90 - Acute pancreatitis without necrosis or infection, unspecified
--- NOTE | 2021-07-29 14:15 | Hospitalist Progress Note ---
Date of Service July 29, 2021 Assessment & Plan (1) Pancreatitis: Plan: 55-year-old white female presented with abdominal pain X 2 days suspect Gallstone Pancreatitis from passed stone/sludge on admission: WBC count elevated at 16.37 but initially without fever and HD stable. Lipase: initially 5196--> has since normalized= 20 Elevated LFTs (TB: 1.9, AST: 218, ALT: 280)--> has downtrended (0.4/49/94 respectively) CT of A/P:edema of the pancreatic head with a distended gallbladder. Gallbladder wall thickened with no ductal dilatation RUQ U/S: shows distended and thickened gallbladder wall with evidence of cholecystitis and concern for early cholecystitis. Mildly dilated common bile duct MRCP: Mild interstitial edema of the pancreatic head. Cholelithiasis with mild gallbladder wall thickening and decreased gallbladder distention. Cannot exclude acute cholecystitis. No ductal dilatation or choledocholithiasis identified GI following- appreciate assistance General Surgery following- appreciate assistance is s/p cholecystectomy with cholangiography. Patient likely passed stone/sludge as LFT's/Lipase downtrending Denies abdominal pain. Tolerating oral intake. (2) Abdominal pain: Plan: - see above. - 2/2 gallstone pancreatitis and acute on chronic cholecystitis - is s/p cholecystectomy with cholangiography (3) Cholecystitis: Plan: - did have developing sepsis syndrome (leukocytosis, fever, tachycardia) with normal lactic acid - CT of A/P with suggestions of acute cholecystitis - RUQ showing distended and thickened GB concerning for early cholecystitis. clinically with + Roldan's sign - MRCP showing no obvious choledocholithiasis or filling defect and GB wall thickening - is s/p laparoscopic cholecystectomy with cholangiography (showing no filling defect) - HEAVEN drain since removed - patient tolerated oral intake and cleared from surgical standpoint to FU with them as an outpatient - empirically on Zosyn upfront- transitioned to Levaquin/Flagyl for PNA- see below (4) Elevated LFTs: Plan: - Likely 2/2 stone/sludge passed in ductal system. - LFT's downtrending - cholangiography WNL (5) Leukocytosis: Plan: - 16K on arrival (likely d/t cholecystis) - up to 18K post cholecystectomy - CTA done right right pleuritic pain, negative for PE but positive for PNA - abx changed-- WBC downtrending (6) Pneumonia: Plan: -On 07/27, was complaining of right shoulder pain and right pleuritic pain. Thought it could have been secondary to laparoscopic cholecystectomy and air entrapment; however, she was slightly tachycardic and requiring low levels of supplemental oxygen. - A CTA was done to rule out PE. No evidence of PE but found to have patchy multilobar groundglass opacities in the right base suggestive of multifocal pn eumonia - Patient had already been on Zosyn empirically since admission for acute cholecystitis. Given persistence/progression in symptoms, her antibiotic therapy was changed - Changed to Levaquin/Flagyl which would provide adequate coverage from a GI perspective (from cholecystectomy/acute cholecystitis). In addition, does provide atypical coverage - WBC count downtrending. No longer requiring oxygen. Patient afebrile. (7) Dizziness: Plan: -Patient complaining of dizziness on 07/28 which prohibited discharge to home -Describes it as a lightheaded feeling rather than vertigo -BP 97/61. Received IV fluids and BP 111/65 but symptoms persist. -This symptom predates this hospitalization and she follows Dr. Olivier for ongoing dizziness for which she takes Diamox --In review of neurology records, she has a diagnosis of idiopathic and episodic dizziness. No conclusive evidence that she has intracranial hypertension or Mnire's; however, responding to Diamox. In addition, it was noted that her BP tends to run low at that appointment (8) Diabetes mellitus type 2, uncontrolled: Plan: Type 2 diabetes Holding home metformin and Victoza Blood sugars being monitored and corrected via sliding scale in addition to utilization of basal insulin (9) Dyslipidemia: Plan: Holding statin given abnormal LFTs as outlined above - okay to resume upon D/C (10) Anxiety with depression: Plan: - Continue home paroxetine (11) Hypertension: Plan: Hypertension Takes lisinopril 2.5 mg daily. We will hold this given dizziness and marginal hypotension of 94/61 Held aspirin due to need for surgical intervention--okay to resume upon discharge (12) Hypothyroid: Plan: Hypothyroidism Continue home Synthroid 50 mcg p.o. every morning (13) Sleep apnea: Plan: CPAP nightly (14) Debility: Plan: At this point time, patient is medically and hemodynamically stable for discharge to home; however, there are safety concerns with discharge plan as patient lives alone and showing debility. Has been seen by PT/OT. Although patient is independent, PT recommending withholding discharge until tomorrow as patient's daughter coming home from [place] to stay with her temporarily. Plan: plan of care to be d/w Dr. Al. further orders as warranted lovenox for DVt prophylaxis. Admission and Anticipated Discharge Date Admission Date: July 25, 2021 Subjective Patient seen on daily rounds today. Overall vocalizes no significant complaints or concerns other than concerns for safety at home. Lives alone but vocalizes that her daughter is coming home from college. Currently studying in [place] but will be home tomorrow. Otherwise, she denies fevers, chills, chest pain, shortness of breath, abdominal pain, nausea and vomiting. She is tolerating oral intake without difficulty. Her cough is improving. She is not having any shortness of breath. I did ask therapy to do an assessment and although independent, she is weak and they feel it would be safest to wait to discharge until tomorrow when daughter available. Review of Systems Review of Systems: All systems reviewed and are unremarkable except as noted in HPI and below Denies fevers, chills, headache, nasal congestion, sore throat, cough, chest pain, shortness of breath, palpitations, orthopnea, PND, abdominal pain, nausea, vomiting, diarrhea, constipation, dysuria, hematuria, frequency, back pain, joint pain or swelling, easy bruising or bleeding, skin lesions or rashes. Physical Exam Physical Exam: General: Resting comfortably in her hospital bed. She does not appear ill or toxic. NAD. HEENT: Head is AT/NC. Buccal mucosa is moist and pink Neck: No JVD. Negative hepatojugular reflex Cardiac: Distant heart sounds with 1/6 JUDY Lungs: Speaking full sentences on ambient air. Normal respiratory effort. Distant breath sounds without W/R/R Abdomen: Surgical dressing dry and intact. Normoactive bowel sounds X4. Abdomen soft and nontender throughout Extremities: No peripheral clubbing cyanosis or edema Neuro: A&O X4. Cranial nerves II through XII are grossly intact. No focal neuro deficits Skin: No obvious skin lesions or rashes Psych: Appropriate affect. Pleasant and cooperative Results & Data Results & Data ([facility]) Vital Signs (Past 12 Hours) Vital Signs Temp Pulse Resp BP Pulse Ox 07/29/21 07:32 37.1 C 85 16 121/63 92 Laboratory Results 07/29/21 05:19 07/29/21 05:19 PG Care Time/CCT Total # of Minutes Spent Total Time Spent with Patient: Total time spent is greater than 50% in coordination of care (as documented) at patient's floor/unit and/or counseling patient: Coding Level of Care Code 61210 Subseq Hosp Care Lvl 1 Diagnoses Pancreatitis K85.90 Acute pancreatitis complication: unspecified Chronicity: acute Pancreatitis type: unspecified pancreatitis type Abdominal pain R10.84 Abdominal location: generalized Cholecystitis K81.9 Elevated LFTs R79.89 Leukocytosis D72.829 Pneumonia J18.9 Dizziness R42 Diabetes mellitus type 2, uncontrolled E11.65 Dyslipidemia E78.5 Anxiety with depression F41.8 Hypertension I10 Hypothyroid E03.9 Sleep apnea G47.30 Debility R53.81 (1) Pancreatitis Acute pancreatitis complication: unspecified Chronicity: acute Pancreatitis type: unspecified pancreatitis type Qualified Code(s): K85.90 - Acute pancreatitis without necrosis or infection, unspecified (2) Abdominal pain Abdominal location: generalized Qualified Code(s): R10.84 - Generalized abdominal pain
[2021-07-29] MEDS: levoFLOXacin/D5W 750 MG/150 ML BAG IV SCH (17:54)
[2021-07-29] MEDS: INSULIN GLARGINE SOLOSTAR 100 UNITS/ML 3 ML PEN SC SCH (21:10)
[2021-07-29] MEDS: acetaZOLAMIDE 500 MG CAPCR PO SCH (21:11)
[2021-07-29] MEDS: PARoxetine HCL 10 MG TAB PO SCH (21:11)
[2021-07-30] MEDS: LEVOTHYROXINE SODIUM 50 MCG TABLET PO SCH (05:47)
--- NOTE | 2021-07-30 08:20 | Surgery Progress Note ---
Date of Service July 30, 2021 Assessment & Plan (1) Pancreatitis: Plan: POD#4 I was surprised to see the patient still here but apparently now she feels like she can go home today We will leave it up to the medical service to discharge We will see the patient in the office in 1 week instructions have been given to her least twice in the last few days The path on the gallbladder noted POD 3 lap barb stable ok for discharge seen with Dr. Duckworth Admission and Anticipated Discharge Date Admission Date: July 25, 2021 Subjective No real issues patient still here states likely go home today Only complaint this morning as she has a little heartburn Physical Exam Physical Exam: Alert coherent laying in bed comfortably The abdomen is soft the dressing on the trocar sites are is dry Results & Data ([facility]) Vital Signs (Past 12 Hours) Vital Signs Temp Pulse Resp BP BP Pulse Ox 07/30/21 07:04 36.9 C 78 16 128/77 94 07/29/21 21:24 36.3 C L 85 18 125/83 99 PG Care Time/CCT Total # of Minutes Spent Total Time Spent with Patient: Total time spent is greater than 50% in coordination of care (as documented) at patient's floor/unit and/or counseling patient: Coding Level of Care Code None Diagnoses Pancreatitis K85.90 Acute pancreatitis complication: unspecified Chronicity: acute Pancreatitis type: unspecified pancreatitis type (1) Pancreatitis Acute pancreatitis complication: unspecified Chronicity: acute Pancreatitis type: unspecified pancreatitis type Qualified Code(s): K85.90 - Acute pancreatitis without necrosis or infection, unspecified
[2021-07-30] MEDS: guaiFENesin 600 MG TABCR PO SCH (08:52)
[2021-07-30] MEDS: metroNIDAZOLE 500 MG TAB PO SCH ×2 (08:52→14:14)
[2021-07-30] MEDS: ENOXAPARIN INJ 30 MG/0.3 ML SYR SQ SCH (08:52)
[2021-07-30] MEDS: DOCUSATE SODIUM 100 MG CAP PO SCH (08:57)
[2021-07-30] MEDS: INSULIN ASPART PER UNIT SC SCH ×2 (08:57→12:43)
--- NOTE | 2021-07-30 11:37 | Discharge Summary ---
Date of Service July 30, 2021 Admission HPI Per Admitting Provider This is a 55-year-old female who presented to the emergency department with 1 day of left lower quadrant abdominal pain and low back pain. Had a colonoscopy 3 days ago, 2 days ago mid upper and left sided abdominal pain. A little better durign the day, then called GI. Had XR/KUB which was OK. Pain was tolerable through the evening, then around midnight 'got so bad I could scream.' Seemed to be all over her abdomen and penetrating through to her lower back. Ate oatmeal, has not noticed an effect of food on her symptoms. +vomiting after taking some miralax around 2 oclock yesterday. +nausea and lightheadedness. Pain now seems worst above her bellybutton off to the left, some radiating pain on the RUQ at time of HPI. Improved with morphine in ER. Feels the pain mosly in her R back at time of bedside assessment. Breathing in deep makes the pain makes it worse and feels a pressure like pain NO remitting factors No chest pain, no chest pressure. Some chest tightness with nausea. BMs have been white/newman for her last 2 bowel movements Feels she had a similar pain in 2008 with her menstrual cycles. No longer has menses, has been menopausal for 8 years 2/2 IUD. Medical History: Reviewed Medications: Reviewed. Took evening meds at 8:30, only took aspirin lisinopril paroxetine Surgical History: Reviewed Allergies: Reviewed. Monostate, Social History: No alcohol use, no tobacco product use. Code Status:Surrogate decision maker would be daughter Catina Falcon. Full Code. Principal Diagnosis Gallstone pancreatitis--resolved Acute cholecystitis s/p lap cholecystectomy Discharge Exam GENERAL: 56 yo morbidly obese WF. NAD. LUNGS: Clear to auscultation bilaterally. No accessory muscle use. No W/R/R. CARDIOVASCULAR: Regular rate and rhythm. No M/G/R. No JVD. ABDOMEN: Soft, minimal tenderness at incision sites. BS normal x 4 quad. EXTREMITIES: No edema. Non-tender. Peripheral pulses +2/4. NEUROLOGIC: A&O x3. PSYCHIATRIC: Cooperative. Appropriate mood and affect. SKIN: Warm, dry, intact. No rashes or lesions. Discharge Data Allergies Allergy/AdvReac Type Severity Reaction Status Date / Time miconazole Allergy Intermediate burning Verified 07/24/21 07:43 skin cleanser combination Allergy Intermediate BURNING/AMRIT Verified 07/24/21 07:43 no.17 H [From Monistat 3] Consultations 07/24/21 09:08 Consult Gastroenterology Routine 07/24/21 11:04 Consult General Surgery Routine Procedures Performed Operation Date: 07/26/21 09:40 Actual Procedures p Laparoscopic Cholecystectomy with Cholangiogram(Not Applicable) - Mitch Duckworth MD, FACS Ordered Studies Abdomen/Pelvis CT 07/24/21 03:[address] WITH IV CONTRAST CT DOSE: 1836.31 mGy.cm HISTORY: Left lower quadrant pain. Recent colonoscopy. TECHNIQUE: Multiaxial CT images of the abdomen and pelvis were performed following the use of intravenous contrast. A dose lowering technique was utilized adhering to the principles of ALARA. COMPARISON STUDY: None. FINDINGS: Bibasilar linear densities consistent with subsegmental atelectasis. No pneumoperitoneum. No pneumatosis. The liver, spleen, adrenal glands, and kidneys are unremarkable. There is periportal edema. Mild inflammatory change/fluid adjacent to the pancreatic head and proximal duodenum. The pancreatic head appears slightly edematous. The gallbladder is also distended with mild pericholecystic inflammatory change. Normal caliber common bile duct. Trace fluid along the right paracolic gutter. The bladder is mildly thickened which may be due to underdistention. Small fat-containing periumbilical hernia is noted. Left retroaortic renal vein. There is a 4.7 cm uterine fibroid. An intrauterine device appears in good position. No pelvic free fluid. No bowel wall thickening or obstruction. Normal appendix. IMPRESSION: 1. There is inflammatory change/edema within the right upper quadrant which surrounds the slightly edematous pancreatic head, duodenum, and distended gallbladder. The gallbladder wall appears slightly thickened. Therefore, this could be secondary to an acute pancreatitis or acute cholecystitis. Clinical correlation recommended. 2. No evidence for bowel obstruction. 3. The intrauterine device appears in good position. 4. Additional findings as described above. ACT 112: Negative or not required by law. Electronically signed by: Paramjit Diaz M.D. 07/24/2021 7:32 AM Gallbladder Ultrasound 07/24/21 06:54 ABDOMINAL ULTRASOUND, RIGHT UPPER QUADRANT HISTORY: Right upper quadrant abdominal pain. Abnormal CT.. COMPARISON: Abdomen and pelvis CT 07/24/2021. FINDINGS: Pancreas: Mild heterogeneity within the pancreatic head. Liver: The liver is echogenic consistent with fatty change. Gallbladder: The gallbladder appears mildly distended. Gallbladder wall is borderline thickened measuring 3 mm. Multiple gallstones are noted. No pericholecystic fluid. CBD: 7 mm. Right kidney: No hydronephrosis. IMPRESSION: 1. Mild heterogeneity of the pancreatic head. This could represent acute pancreatitis. Recommend correlation with pancreatic enzymes 2. Mildly distended gallbladder with a borderline thickened gallbladder wall and multiple gallstones. An early acute cholecystitis is not excluded. Clinical correlation recommended. 3. Mildly dilated common bile duct measuring 7 mm. No evidence for choledocholithiasis. ACT 112: Negative or not required by law. Electronically signed by: Paramjit Diaz M.D. 07/24/2021 8:05 AM Cholangiopancreatography MRI 07/25/21 07:43 MR MRCP HISTORY: 55 years-old Female ?choledocholithiasis acute right upper quadrant abdominal pain COMPARISON: CT abdomen and pelvis 07/24/2021 TECHNIQUE: MRCP was obtained without the use of IV contrast according to institutional protocol. FINDINGS: Trace pleural and pericardial effusions. Cardiomegaly. Probable bibasilar atelectasis. There is decreased distention of the gallbladder compared to the prior study. There is decreased gallbladder wall thickening from comparison with associated cholelithiasis. Mild interstitial edema of the pancreatic head. No acute peripancreatic fluid collection or pancreatic ductal dilation. The MRCP images are motion degraded. The common and intrahepatic biliary ducts appear to be normal in caliber. No choledocholithiasis identified. The common bile duct measures up to 3-4 mm transversely. There is decreased wall thickening of the duodenum compared to prior study. Unremarkable soft tissues. IMPRESSION: 1. Mild interstitial edema of the pancreatic head redemonstrated suggestive of mild acute pancreatitis. No pancreatic ductal dilation. 2. Cholelithiasis with mild gallbladder wall thickening and decreased gallbladder distention compared to yesterday's study. Follow-up recommended to exclude acute cholecystitis. 3. No biliary ductal dilation or choledocholithiasis identified. 4. Trace pericardial and pleural effusions. ACT 112: Negative or not required by law. The above report was generated using voice recognition software. It may contain grammatical, syntax or spelling errors. Electronically signed by: Tremaine Balbuena M.D. 07/25/2021 2:36 PM Cholangiogram,Operative 07/26/21 00:00 INTRAOPERATIVE CHOLANGIOGRAM HISTORY: Post cholecystectomy. FLUOROSCOPY TIME: 4 seconds. 4 fluoroscopic spot images of the right upper quadrant. FINDINGS: Fluoroscopy was provided for an intraoperative cholangiogram status post cholecystectomy. Contrast was injected through the cystic duct remnant. The common bile duct is normal in course and caliber. There are no filling defects seen within the common bile duct to suggest a retained stone. Contrast extends into the small bowel. There is no intrahepatic bile duct dilatation. IMPRESSION: Fluoroscopy provided for an intraoperative cholangiogram status post cholecystectomy. No filling defects within the common bile duct. ACT 112: Negative or not required by law. Electronically signed by: Paramjit Diaz M.D. 07/26/2021 2:31 PM Chest CTA 07/27/21 10:23 CT angio chest PE protocol CT DOSE: 920.70 mGy.cm HISTORY: 56 years-old Female with PE. Acute shortness of breath TECHNIQUE: Multiple CTA images of the chest were obtained after the intravenous administration of 121 ml Optiray. Coronal and sagittal MIPS were obtained from the axial data set and were submitted for review. All measurements were obtained according to NASCET criteria. A dose lowering technique was utilized adhering to the principles of ALARA. COMPARISON: Chest radiographs 07/23/2021 FINDINGS: CTA: Moderate cardiomegaly. Trace pericardial effusion. Four-vessel morphology of the thoracic aorta arch. No thoracic aortic aneurysm or dissection. Unremarkable pulmonary artery. The segmental and subsegmental pulmonary arterial branches are suboptimally evaluated secondary to respiratory motion artifact. No central pulmonary emboli are identified. CT CHEST: Unremarkable thyroid. Mildly prominent subcentimeter mediastinal lymph nodes are likely physiologic. Trace pleural effusions, right greater than left. No pneumothorax. Linear subsegmental atelectasis of the left upper lobe. Patchy groundglass and consolidative multilobar opacities are most pronounced within the right greater than left lower lobes. The central airways appear patent. Mild air trapping. Hepatomegaly with hepatic steatosis. No acute process of the imaged upper abdomen. Nonspecific mildly prominent lymph nodes within the erasmo hepatis. Unremarkable soft tissues. No acute fracture. IMPRESSION: 1. Cardiomegaly without pulmonary emboli identified. Evaluation of the pulmonary arterial tree however is limited as above. 2. Patchy multilobar right basilar predominant groundglass and consolidative opacities are suggestive of multifocal pneumonia. 3. Trace pleural effusions. ACT 112: Negative or not required by law. The above report was generated using voice recognition software. It may contain grammatical, syntax or spelling errors. Electronically signed by: Tremaine Balbuena M.D. 07/27/2021 1:24 PM Hospital Course (1) Pancreatitis: 55-year-old white female presented with abdominal pain X 2 days suspect Gallstone Pancreatitis from passed stone/sludge on admission: WBC count elevated at 16.37 but initially without fever and HD stable. Lipase: initially 5196--> has since normalized= 20 Elevated LFTs (TB: 1.9, AST: 218, ALT: 280)--> has downtrended (0.4/49/94 respectively) CT of A/P:edema of the pancreatic head with a distended gallbladder. Gallbladder wall thickened with no ductal dilatation RUQ U/S: shows distended and thickened gallbladder wall with evidence of cholecystitis and concern for early cholecystitis. Mildly dilated common bile duct MRCP: Mild interstitial edema of the pancreatic head. Cholelithiasis with mild gallbladder wall thickening and decreased gallbladder distention. Cannot exclude acute cholecystitis. No ductal dilatation or choledocholithiasis identified GI following- appreciate assistance General Surgery following- appreciate assistance is s/p cholecystectomy with cholangiography. Patient likely passed stone/sludge as LFT's/Lipase downtrending Denies abdominal pain. Tolerating oral intake. (2) Abdominal pain: - see above. - 2/2 gallstone pancreatitis and acute on chronic cholecystitis - is s/p cholecystectomy with cholangiography (3) Cholecystitis: - did have developing sepsis syndrome (leukocytosis, fever, tachycardia) with normal lactic acid - CT of A/P with suggestions of acute cholecystitis - RUQ showing distended and thickened GB concerning for early cholecystitis. clinically with + Roldan's sign - MRCP showing no obvious choledocholithiasis or filling defect and GB wall thickening - is s/p laparoscopic cholecystectomy with cholangiography (showing no filling defect) - HEAVEN drain since removed - patient tolerated oral intake and cleared from surgical standpoint to FU with them as an outpatient - empirically on Zosyn upfront- transitioned to Levaquin/Flagyl for PNA- see below (4) Elevated LFTs: - Likely 2/2 stone/sludge passed in ductal system. - LFT's downtrending - cholangiography WNL (5) Leukocytosis: - 16K on arrival (likely d/t cholecystitis) - up to 18K post cholecystectomy - CTA done right right pleuritic pain, negative for PE but positive for PNA - abx changed-- WBC downtrending (6) Pneumonia: -On 07/27, was complaining of right shoulder pain and right pleuritic pain. Thought it could have been secondary to laparoscopic cholecystectomy and air entrapment; however, she was slightly tachycardic and requiring low levels of supplemental oxygen. - A CTA was done to rule out PE. No evidence of PE but found to have patchy multilobar groundglass opacities in the right base suggestive of multifocal pneumonia - Patient had already been on Zosyn empirically since admission for acute cholecystitis. Given persistence/progression in symptoms, her antibiotic therapy was changed - Changed to Levaquin/Flagyl which would provide adequate coverage from a GI perspective (from cholecystectomy/acute cholecystitis). In addition, does provide atypical coverage - WBC count downtrending. No longer requiring oxygen. Patient afebrile. - Will transition to Levaquin 750mg single agent (as I do not believe she requires anaerobic coverage any longer) x 4 more days (in order to complete total of 7 days) (7) Dizziness: -Patient complaining of dizziness on 07/28 which prohibited discharge to home -Describes it as a lightheaded feeling rather than vertigo -BP 97/61. Received IV fluids and BP 111/65 but symptoms persist. -This symptom predates this hospitalization and she follows Dr. Olivier for ongoing dizziness for which she takes Diamox --In review of neurology records, she has a diagnosis of idiopathic and episodic dizziness. No conclusive evidence that she has intracranial hypertension or Mnire's; however, responding to Diamox. In addition, it was noted that her BP tends to run low at that appointment (8) Diabetes mellitus type 2, uncontrolled: Type 2 diabetes Holding home metformin and Victoza Blood sugars being monitored and corrected via sliding scale in addition to utilization of basal insulin (9) Dyslipidemia: Holding statin given abnormal LFTs as outlined above - okay to resume upon D/C (10) Anxiety with depression: - Continue home paroxetine (11) Hypertension: Hypertension Takes lisinopril 2.5 mg daily. We will hold this given dizziness and marginal hypotension of 94/61 Held aspirin due to need for surgical intervention--okay to resume upon discharge (12) Hypothyroid: Hypothyroidism Continue home Synthroid 50 mcg p.o. every morning (13) Sleep apnea: CPAP nightly (14) Debility: At this point time, patient is medically and hemodynamically stable for discharge to home; however, there are safety concerns with discharge plan as patient lives alone and showing debility. Has been seen by PT/OT. Although patient is independent, PT recommending withholding discharge until 07/30 when her daughter would be home to assist her. At this time, patient is medically and hemodynamically stable for discharge home. Will send home with a course of Levaquin x4 more days in order to complete treatment for her pneumonia. Follow-up as scheduled with your primary care for provider which we would advise seeing within 7 to 10 days of discharge. Also recommend follow-up with general surgery as scheduled (within 1 week). Avoid strenuous activity or heavy lifting, do not lift more than 10 pounds. Above plan of care has been d/w Dr. Vega who has also seen this patient prior to discharge. Total Time Total Time Spent Total Time Spent (In Minutes): >30 minutes Discharge Plan Discharge Items Patient Disposition: Home - Self-Care Reason For Visit: ABDOMINAL PAIN, ?choledoco Discharge Diagnosis: laparoscopic cholecystectomy Activity: Per Instructions section Lifting: No more than 10 pounds Bathing Comment: may shower; no soaking in tubs/pools Exercise/Sports: Wait until after follow-up appointment Driving/Machine Use: no driving while taking narcotics for pain Non-emergency contact: Primary Care Provider and Surgeon Call non-emergency contact if: you have any medication questions, your symptoms worsen, your pain is not controlled, your pain is concerning for you, you have a fever, your temperature is above 101.5, your wound has increased redness, your wound has increased drainage and your wound pain has increased Follow-up/Referrals: Brodie Maria MD [Primary Care Provider] - Mitch Duckworth MD, FACS [Surgeon] - 08/06/21 10:15 am (Please call to schedule follow up in clinic within 1 week) Diet: Carb Consistent or DM2 Addtl Attending Provider Instructions: You were hospitalized due to inflammation in your pancreas which occurred likely due to sludge passing from your gallbladder that blocked the duct that drains your pancreas. In addition, you were found to have signs that were concerning for an acutely infected gallbladder which is what led to having your gallbladder removed. At this time, you can resume your usual diabetic diet (regular consistency). Diarrhea is not uncommon after having your gallbladder removed. In addition, air was pumped into your abdominal cavity to be able to visualize the surgical site. You may have some shoulder pain/discomfort as this gas dissipates. You may also your abdomen is a slightly bloated as well, this will improve with time. On 07/27, you were started on Levaquin (an antibiotic) for pneumonia which was found on the CT done of your chest. You will require 4 more days of this antibiotic, please complete it as prescribed. Next dose is due on 07/30 (this evening), take with dinner. You are to follow up with Dr. Duckworth as scheduled. Would advise follow up with your primary care provider within 7-10 days. You can utilize OTC Tylenol +/- Ibuprofen as needed for pain. Do not lift more than 10 pounds as instructed. Avoid heavy lifting/strenuous activity until you follow up and are otherwise instructed by your surgeon. Take all medications as outlined on your discharge instructions. Addtl Consumer Services Consultant Provider Instructions: You have small white bandages over your incisions called steri-strips. You may shower with these on. They will tend to fall off on their own within 7-10 days. Pending Studies at Discharge: Yes Studies:: surgical pathology Stand-Alone Forms: [facility], Smoking Cessation Medications and DC Order Prescriptions: New levofloxacin 750 mg tablet 750 mg PO DAILY 4 Days Qty: 4 RF: 0 Continued meclizine 25 mg tablet 25 mg PO TID PRN (Reason: dizziness) Qty: 20 RF: 0 (DME) pen needle, diabetic [BD Ultra-Fine Sushila Pen Needle] 32 gauge x 5/32" needle See Dose Instructions .ROUTE .MEDSUPPLY Qty: 100 RF: 3 clobetasol 0.05 % foam 1 applic TOP DAILY Qty: 50 RF: 1 lisinopril 2.5 mg tablet 2.5 mg PO QPM Qty: 90 RF: 3 Victoza 3-Nikos 0.6 mg/0.1 mL (18 mg/3 mL) pen injector 1.8 mg SUBCUT QPM 90 Days Qty: 27 RF: 3 metformin 500 mg tablet extended release 24 hr 1,000 mg PO BIDM Qty: 360 RF: 3 atorvastatin 20 mg tablet 20 mg PO QPM Qty: 30 RF: 5 paroxetine HCl 10 mg tablet 10 mg PO QPM Qty: 90 RF: 1 Mirena 20 mcg/24 hours (5 yrs) 52 mg intrauterine device 1 device IU CONT RF: 0 acetazolamide 500 mg capsule, extended release 500 mg PO HS RF: 0 cyanocobalamin (vitamin B-12) [Vitamin B-12] 1,000 mcg Tablet Extended Release 1,000 mcg PO QPM RF: 0 aspirin 81 mg Tablet,Delayed Release (Dr/Ec) 81 mg PO QPM RF: 0 cholecalciferol (vitamin D3) [Vitamin D3] 2,000 unit Capsule 2,000 unit PO QPM RF: 0 glucosamine-chondroitin [Osteo Bi-Flex] 250-200 mg Tablet 1 tab PO QPM RF: 0 levothyroxine 50 mcg tablet 50 mcg PO QAM RF: 0 ibuprofen [Motrin IB] 200 mg Tablet 200 mg PO Q6H PRN (Reason: Pain) RF: 0 Discharge Orders: Discharge Order (Routine); Ordered 07/30/21 Ordered By: Jael Raygoza Admission Data Admit Date/Time: 07/25/21 10:23 Attending Provider: Patel Vega Admit Provider: Patel Vega Primary Care Provider: Brodie Maria V. Other Providers: Patel Vega ; Anisa Paulino ; Mitch Duckworth Other Interventions: Discharge Summary Assessment (RN) Last Done: 07/30/21 12:00 Supervising Physician Co-Signing Physician Notes Case discussed with СВЕТЛАНА Raygoza. Patient seen at bedside, feeling greatly improved since her surgery. Some residual postsurgical tenderness, no nausea/vomiting. Tachycardia, heart rate regular, breathing unlabored and lungs clear. Discussed post cholecystectomy diet at bedside no other questions/concerns at bedside assessment. Agree with management above. Coding Level of Care Code D/C DAY MANAGEMENT >30 MINS Diagnoses Pancreatitis K85.90 Acute pancreatitis complication: unspecified Chronicity: acute Pancreatitis type: unspecified pancreatitis type Abdominal pain R10.84 Abdominal location: generalized Cholecystitis K81.9 Elevated LFTs R79.89 Leukocytosis D72.829 Pneumonia J18.9 Dizziness R42 Diabetes mellitus type 2, uncontrolled E11.65 Dyslipidemia E78.5 Anxiety with depression F41.8 Hypertension I10 Hypothyroid E03.9 Sleep apnea G47.30 Debility R53.81
== END 2021-07-30 15:08 | disposition home or self-care (01) | DRG 853 ==
LOC: 3N 03:26 → ED 03:26 → SUATTDRO 06:54 → 3N 08:26 → SUATTDRO 07-25 10:23 → 2N 07-25 10:51 → 3E 07-29 00:05